=== PATIENT | male | born 1940 | race Caucasian/White ===

== ENCOUNTER 2017-05-29 11:48 | Inpatient (IN) | payer MEDICARE, OTHER ==
[~2017-05-29] VITALS: Ht 180.3 cm; Wt 139.6 kg
[~2017-05-29 11:48] MED LIST: atropine 0.1mg/ml 10ml syringe ONE; epiNEPHrine 0.1mg/ml 10ml syringe ONE; etomidate 2mg/ml inj. ONE; rocuronium 10mg/ml inj IV ONE; sod chloride 0.9% 10ml flush syringe IV ONE
[2017-05-29] MEDS ORDERED: pantoprazole 40 MG vial IV ONE (12:35)
[2017-05-29] MEDS ORDERED: famotidine/PF 10 mg/ml inj IV ONE (12:35)
[2017-05-29 12:38] LABS: BASOPHILS % (AUTO) 0.2 % (0-1); EOSINOPHILS % (AUTO) 0 % (0-6); HEMATOCRIT 48.7 % (42.0-52.0); HEMOGLOBIN 16.5 g/dl (14.0-17.9); LYMPHOCYTES # (AUTO) 0.4 X10'3 (1.1-4.8); LYMPHOCYTES % (AUTO) 2.8 % (21-51); MEAN CORPUSCULAR HEMOGLOBIN 29.1 PG (27.0-31.0); MEAN CORPUSCULAR HGB CONC 33.9 % (33.0-36.5); MEAN CORPUSCULAR VOLUME 85.7 FL (78-98); MEAN PLATELET VOLUME 7.5 FL (7.4-10.4); MONOCYTES # (AUTO) 0.7 X10'3 (0-0.9); MONOCYTES % (AUTO) 5.1 % (2-12); NEUTROPHILS % (AUTO) 91.9 % (42-75); PLATELET COUNT 213 X10'3 (140-440); RED BLOOD COUNT 5.68 X10'6 (4.70-6.10); WHITE BLOOD COUNT 14.1 X10'3 (4.5-11.0)
[2017-05-29 12:53] LABS: ALANINE AMINOTRANSFERASE 771 U/L (12-78); ALBUMIN 3.6 G/DL (3.4-5.0); ALBUMIN/GLOBULIN RATIO 0.9 (1.1-1.5); ALKALINE PHOSPHATASE 113 IU/L (46-116); ANION GAP 16 (8-16); ASPARTATE AMINO TRANSFERASE 779 U/L (10-37); BLOOD UREA NITROGEN 31 MG/DL (7-18); BUN/CREATININE RATIO 15.9 (5.4-32.0); CALCIUM 8.5 MG/DL (8.5-10.1); CHLORIDE 106 MMOL/L (99-107); CREATININE 1.95 MG/DL (0.60-1.10); GLUCOSE 238 MG/DL (70-104); POTASSIUM 4.3 MMOL/L (3.5-5.1); SODIUM 145 MMOL/L (135-145); TOTAL CARBON DIOXIDE 23.3 MMOL/L (24-32); TOTAL PROTEIN 7.5 G/DL (6.4-8.2); eGFR 34 ML/MIN
[2017-05-29 12:57] LABS: AMYLASE 947 U/L (25-115)
[2017-05-29] MEDS ORDERED: pantoprazole 40MG/NS 100ML BAG 100 ML IV ONE (13:00)
[2017-05-29 13:01] LABS: INR 1.1 INR
[2017-05-29 13:28] LABS: CHOL/HDL RATIO 2.5 (0.00-4.99); CHOLESTEROL 124 MG/DL (0-200); HDL CHOLESTEROL 49 MG/DL (35-60); HEMOGLOBIN A1C 5.6 % (4.5-6.2); LDL CHOLESTEROL 67 MG/DL (50-100); TRIGLYCERIDES 70 MG/DL (20-135)
[2017-05-29 13:29] LABS: LIPASE 5754 U/L (73-393)
[2017-05-29] MEDS ORDERED: piperacillin/tazo 3.375gm/50ml 50 ML IV ONE (14:00)
[2017-05-29] MEDS ORDERED: bisacodyl 10mg suppository rectal RC PRN (14:20)
[2017-05-29] MEDS ORDERED: ondansetron/PF 4mg/2ml inj IV PRN (14:20)
[2017-05-29] MEDS ORDERED: magnesium 4gm in 100ml NS 100 ML IV PRN (14:20)
[2017-05-29] MEDS ORDERED: potassium Cl 40MEQ/NS 500ml 500 ML IV PRN ×2 (14:20)
[2017-05-29] MEDS ORDERED: magnesium 2GM in 50ml NS 50 ML IV PRN (14:20)
[2017-05-29] MEDS ORDERED: fentaNYL/PF 50MCG/1 ML 2ML syringe IV ONE (14:30)
[2017-05-29] MEDS ORDERED: morphine 4 MG/ML inj SYRINge IV ONE (14:50)
[2017-05-29] MEDS ORDERED: morphine 4 MG/ML inj SYRINge IV PRN (14:55)
[2017-05-29] MEDS: normal saline 1000ml 1,000 ML IV SCH ×2 (15:17→19:32)
[2017-05-29] MEDS: piperacillin/tazo 3.375gm/50ml 50 ML IV SCH ×2 (15:18→23:39)
[2017-05-29] MEDS ORDERED: AMLO1CAP19 PO (16:11)
[2017-05-29 19:04] LABS: ALANINE AMINOTRANSFERASE 660 U/L (12-78); ALBUMIN 3.6 G/DL (3.4-5.0); ALBUMIN/GLOBULIN RATIO 0.9 (1.1-1.5); ALKALINE PHOSPHATASE 106 IU/L (46-116); ANION GAP 17 (8-16); ASPARTATE AMINO TRANSFERASE 498 U/L (10-37); BILIRUBIN,TOTAL 2.6 MG/DL (0.1-1.0); BLOOD UREA NITROGEN 36 MG/DL (7-18); BUN/CREATININE RATIO 18.4 (5.4-32.0); CALCIUM 8.7 MG/DL (8.5-10.1); CHLORIDE 106 MMOL/L (99-107); CREATININE 1.96 MG/DL (0.60-1.10); GLUCOSE 251 MG/DL (70-104); SODIUM 143 MMOL/L (135-145); TOTAL CARBON DIOXIDE 20.2 MMOL/L (24-32); TOTAL PROTEIN 7.5 G/DL (6.4-8.2); eGFR 33 ML/MIN
[2017-05-29 19:28] LABS: AMYLASE 1051 U/L (25-115)
[2017-05-29 19:38] LABS: LIPASE 8113 U/L (73-393)
[2017-05-29 20:00] VITALS: BP 114/70
[2017-05-29] MEDS: pantoprazole 40MG/NS 100ML BAG 100 ML IV SCH (20:48)
[2017-05-29 21:04] LABS: ALANINE AMINOTRANSFERASE 631 U/L (12-78); ALBUMIN 3.6 G/DL (3.4-5.0); ALBUMIN/GLOBULIN RATIO 0.9 (1.1-1.5); ALKALINE PHOSPHATASE 105 IU/L (46-116); ANION GAP 19 (8-16); ASPARTATE AMINO TRANSFERASE 441 U/L (10-37); BILIRUBIN,TOTAL 2.8 MG/DL (0.1-1.0); BLOOD UREA NITROGEN 39 MG/DL (7-18); BUN/CREATININE RATIO 17.4 (5.4-32.0); CALCIUM 8.5 MG/DL (8.5-10.1); CHLORIDE 107 MMOL/L (99-107); CREATININE 2.24 MG/DL (0.60-1.10); GLUCOSE 237 MG/DL (70-104); SODIUM 144 MMOL/L (135-145); TOTAL CARBON DIOXIDE 17.7 MMOL/L (24-32); TOTAL PROTEIN 7.5 G/DL (6.4-8.2); eGFR 29 ML/MIN
[2017-05-29 21:07] LABS: POTASSIUM 5.2 MMOL/L (3.5-5.1)
[2017-05-29 21:15] LABS: CLARITY,URINE CLOUDY (Clear); COLOR,URINE YELLOW (Yellow); GLUCOSE, URINE NEGATIVE (Neg); KETONES,URINE TRACE mg/dl (Neg); LEUKOCYTE ESTERASE ,URINE NEGATIVE (Neg); NITRITES, URINE NEGATIVE (Neg); OCCULT BLOOD,URINE LARGE (Neg); PROTEIN,URINE 100 mg/dl (Neg)
[2017-05-29 21:25] LABS: UA COLLECTION TYPE VOIDED
[2017-05-29 21:26] LABS: AMORPHOUS URATES 3+; BACTERIA,URINE FEW /HPF (Neg); RBC,URINE 0-2 /HPF (0-2); SQUAMOUS EPITHELIAL CELL,UR FEW /LPF (FEW); WBC,URINE 0-4 /HPF (0-4)
[2017-05-29] MEDS ORDERED: dextrose 50%-water 50ml dispensing syringe IV PRN ×2 (22:30)
[2017-05-29] MEDS ORDERED: MESSAGE TO PHARMACY PO ONE (22:30)
[2017-05-29] MEDS ORDERED: dextrose ORAL solution 15 GM/59 ML bottle PO PRN ×2 (22:30)
[2017-05-29] MEDS ORDERED: glucagon, human recombinant 1mg kit SUBCUT PRN (22:30)
[2017-05-29] MEDS: sodium chloride 0.45% 1,000 ML IV SCH ×3 (22:30→23:30)
[2017-05-29] MEDS ORDERED: furosemide 20 MG/2 ML vial IV ONE (22:30)
[2017-05-29] MEDS ORDERED: sodium chloride 0.45% 1,000 ML IV SCH (23:30)
[2017-05-30] VITALS (14 sets, daily range): BP systolic 74–122; BP diastolic 48–82
[2017-05-30] MEDS: morphine 4 MG/ML inj SYRINge IV PRN ×3 (00:32→17:58)
[2017-05-30 01:21] LABS: BASOPHILS # (AUTO) 0.1 X10'3 (0-0.2); BASOPHILS % (AUTO) 0.4 % (0-1); EOSINOPHILS % (AUTO) 0 % (0-6); HEMATOCRIT 48.8 % (42.0-52.0); HEMOGLOBIN 16.4 g/dl (14.0-17.9); LYMPHOCYTES # (AUTO) 0.6 X10'3 (1.1-4.8); LYMPHOCYTES % (AUTO) 3.7 % (21-51); MEAN CORPUSCULAR HGB CONC 33.7 % (33.0-36.5); MEAN PLATELET VOLUME 8.6 FL (7.4-10.4); MONOCYTES # (AUTO) 0.5 X10'3 (0-0.9); MONOCYTES % (AUTO) 3.4 % (2-12); NEUTROPHILS % (AUTO) 92.5 % (42-75); PLATELET COUNT 197 X10'3 (140-440); RED BLOOD COUNT 5.68 X10'6 (4.70-6.10); RED CELL DISTRIBUTION WIDTH 13.5 % (11.5-14.5); WHITE BLOOD COUNT 16.2 X10'3 (4.5-11.0)
[2017-05-30] MEDS: pantoprazole 40MG/NS 100ML BAG 100 ML IV SCH ×5 (01:25→22:48)
[2017-05-30 02:13] LABS: ANION GAP 17 (8-16); CHLORIDE 106 MMOL/L (99-107); GLUCOSE 215 MG/DL (70-104); POTASSIUM 4.8 MMOL/L (3.5-5.1); SODIUM 142 MMOL/L (135-145); TOTAL CARBON DIOXIDE 19.3 MMOL/L (24-32)
[2017-05-30 02:14] LABS: ALBUMIN 3.4 G/DL (3.4-5.0); ALBUMIN/GLOBULIN RATIO 0.9 (1.1-1.5); BILIRUBIN,TOTAL 2.7 MG/DL (0.1-1.0); BLOOD UREA NITROGEN 46 MG/DL (7-18); BUN/CREATININE RATIO 18.2 (5.4-32.0); CALCIUM 8.2 MG/DL (8.5-10.1); CREATININE 2.53 MG/DL (0.60-1.10); MAGNESIUM 1.8 MG/DL (1.5-2.4); TOTAL PROTEIN 7.2 G/DL (6.4-8.2); eGFR 25 ML/MIN
[2017-05-30 02:15] LABS: ALANINE AMINOTRANSFERASE 511 U/L (12-78); ALKALINE PHOSPHATASE 91 IU/L (46-116); ASPARTATE AMINO TRANSFERASE 342 U/L (10-37); CHOL/HDL RATIO 2.8 (0.00-4.99); CHOLESTEROL 113 MG/DL (0-200); HDL CHOLESTEROL 40 MG/DL (35-60); LDL CHOLESTEROL 57 MG/DL (50-100); TRIGLYCERIDES 104 MG/DL (20-135)
[2017-05-30 05:58] LABS: ALANINE AMINOTRANSFERASE 454 U/L (12-78); ALBUMIN 3.3 G/DL (3.4-5.0); ALBUMIN/GLOBULIN RATIO 0.9 (1.1-1.5); ALKALINE PHOSPHATASE 81 IU/L (46-116); ANION GAP 17 (8-16); BILIRUBIN,TOTAL 2.7 MG/DL (0.1-1.0); BLOOD UREA NITROGEN 51 MG/DL (7-18); CHLORIDE 107 MMOL/L (99-107); CREATININE 2.83 MG/DL (0.60-1.10); GLUCOSE 208 MG/DL (70-104); SODIUM 143 MMOL/L (135-145); TOTAL CARBON DIOXIDE 18.6 MMOL/L (24-32); TOTAL PROTEIN 6.9 G/DL (6.4-8.2); eGFR 22 ML/MIN
[2017-05-30] MEDS: sodium chloride 0.45% 1,000 ML IV SCH (06:52)
[2017-05-30 07:22] LABS: ASPARTATE AMINO TRANSFERASE 286 U/L (10-37)
[2017-05-30 07:25] LABS: AMYLASE 1788 U/L (25-115); LIPASE 10531 U/L (73-393); POTASSIUM 5.2 MMOL/L (3.5-5.1)
[2017-05-30] MEDS ORDERED: morphine 2 MG/ML inj. syringe IV ONE (07:50)
[2017-05-30] MEDS: K and/or MAG REPLACEMENT MC SCH (08:00)
[2017-05-30] MEDS ORDERED: enoxaparin 40mg/0.4ml syringe SQ SCH (08:00)
[2017-05-30 09:38] LABS: ALANINE AMINOTRANSFERASE 449 U/L (12-78); ALBUMIN 3.4 G/DL (3.4-5.0); ALBUMIN/GLOBULIN RATIO 0.9 (1.1-1.5); ALKALINE PHOSPHATASE 83 IU/L (46-116); ANION GAP 16 (8-16); BILIRUBIN,TOTAL 2.6 MG/DL (0.1-1.0); BLOOD UREA NITROGEN 55 MG/DL (7-18); BUN/CREATININE RATIO 14.8 (5.4-32.0); CALCIUM 8.2 MG/DL (8.5-10.1); CHLORIDE 104 MMOL/L (99-107); CREATININE 3.72 MG/DL (0.60-1.10); GLUCOSE 217 MG/DL (70-104); SODIUM 141 MMOL/L (135-145); TOTAL CARBON DIOXIDE 21.2 MMOL/L (24-32); TOTAL PROTEIN 7.4 G/DL (6.4-8.2); eGFR 16 ML/MIN
[2017-05-30 09:52] LABS: ASPARTATE AMINO TRANSFERASE 251 U/L (10-37)
[2017-05-30 10:01] LABS: POTASSIUM 6.2 MMOL/L (3.5-5.1)
[2017-05-30] MEDS ORDERED: sodium polystyrene sulfonate 15gm/60ml oral suspension PO ONE (10:10)
[2017-05-30] MEDS: piperacillin/tazo 3.375gm/50ml 50 ML IV SCH (11:06)
[2017-05-30] MEDS: normal saline 1000ml 1,000 ML IV SCH ×2 (11:06→17:38)
[2017-05-30 12:10] LABS: ALANINE AMINOTRANSFERASE 405 U/L (12-78); ALBUMIN 3.3 G/DL (3.4-5.0); ALBUMIN/GLOBULIN RATIO 0.8 (1.1-1.5); ALKALINE PHOSPHATASE 78 IU/L (46-116); ANION GAP 19 (8-16); ASPARTATE AMINO TRANSFERASE 249 U/L (10-37); BILIRUBIN,TOTAL 2.7 MG/DL (0.1-1.0); BLOOD UREA NITROGEN 60 MG/DL (7-18); BUN/CREATININE RATIO 14.7 (5.4-32.0); CALCIUM 8.1 MG/DL (8.5-10.1); CHLORIDE 104 MMOL/L (99-107); CREATININE 4.09 MG/DL (0.60-1.10); GLUCOSE 221 MG/DL (70-104); POTASSIUM 5.6 MMOL/L (3.5-5.1); SODIUM 142 MMOL/L (135-145); TOTAL PROTEIN 7.2 G/DL (6.4-8.2); eGFR 14 ML/MIN
[2017-05-30 16:25] LABS: ALANINE AMINOTRANSFERASE 347 U/L (12-78); ALBUMIN/GLOBULIN RATIO 0.8 (1.1-1.5); ALKALINE PHOSPHATASE 67 IU/L (46-116); ANION GAP 18 (8-16); BILIRUBIN,TOTAL 2.9 MG/DL (0.1-1.0); BLOOD UREA NITROGEN 64 MG/DL (7-18); BUN/CREATININE RATIO 14.2 (5.4-32.0); CALCIUM 7.8 MG/DL (8.5-10.1); CHLORIDE 105 MMOL/L (99-107); CREATININE 4.51 MG/DL (0.60-1.10); GLUCOSE 262 MG/DL (70-104); SODIUM 142 MMOL/L (135-145); TOTAL CARBON DIOXIDE 19.2 MMOL/L (24-32); TOTAL PROTEIN 6.6 G/DL (6.4-8.2); eGFR 13 ML/MIN
[2017-05-30 16:49] LABS: AMYLASE 2206 U/L (25-115); ASPARTATE AMINO TRANSFERASE 230 U/L (10-37); LIPASE 11787 U/L (73-393); POTASSIUM 5.8 MMOL/L (3.5-5.1)
[2017-05-30 17:11] LABS: OXYGEN SATURATION (MIXED VEN) 57.4 % (60-80)
[2017-05-30 17:11] LABS: ABG BASE EXCESS -11.6 mmol/L (-2.0-3.0); ABG OXYGEN SATURATION 88.2 % (95-98); ABG PCO2 (T) 36.3 mmHg (35.0-48.0); ABG PH (T) 7.234 (7.350-7.450); ABG PO2 (T) 59.2 mmHg (83-108); ALLEN'S TEST Positive; FCOHb 1.3 % (0.5-1.5); FLOW 5 L/min; FMetHb 0.6 % (0.3-1.12); FO2Hb 86.5 % (94-100); TOTAL HEMOGLOBIN 15.4 G/dl (14.0-18.0)
[2017-05-30] MEDS: piperacillin-tazo 2.25gm/50ml 50 ML IV SCH ×2 (17:11→22:48)
[2017-05-30 18:55] LABS: CLARITY,URINE TURBID (Clear); COLOR,URINE YELLOW (Yellow); GLUCOSE, URINE NEGATIVE (Neg); KETONES,URINE 15 mg/dl (Neg); LEUKOCYTE ESTERASE ,URINE NEGATIVE (Neg); OCCULT BLOOD,URINE LARGE (Neg); PROTEIN,URINE 100 mg/dl (Neg)
[2017-05-30 19:07] LABS: UA COLLECTION TYPE NON-SPECIFIED
[2017-05-30 19:08] LABS: NITRITES, URINE NEGATIVE (Neg)
[2017-05-30] MEDS ORDERED: MIDAZolam 5mg/ml 2ml vial ONE (19:09)
[2017-05-30 19:10] LABS: AMORPHOUS URATES 4+; BACTERIA,URINE FEW /HPF (Neg); COARSE GRANULAR CAST 0-3 /LPF (NEGATIVE); RBC,URINE 0-2 /HPF (0-2); SPERM FEW /HPF (NEGATIVE); SQUAMOUS EPITHELIAL CELL,UR FEW /LPF (FEW); WBC,URINE 0-4 /HPF (0-4)
[2017-05-30] MEDS: morphine/NS 100mg/100ml bag 100 ML IV SCH (19:12)
[2017-05-30] MEDS ORDERED: midazolam 2 mg/2 ml injection IV ONE (19:15)
[2017-05-30] MEDS ORDERED: NORepinephrine 8mg/ 250ml NS 250 ML IV ONE (19:18)
[2017-05-30 19:22] LABS: TOTAL PROTEIN,URINE RANDOM 429.4 MG/DL
[2017-05-30] MEDS: sodium bicarbonate (8.4%) inj. 100 MEQ in sodium chloride 0.45% 1,000 ML IV SCH ×2 (19:35→22:47)
[2017-05-30] MEDS: heparin, porcine 5000 units/ml vial SQ SCH (20:00)
[2017-05-30 20:30] LABS: ABG BASE EXCESS -13.6 mmol/L (-2.0-3.0); ABG OXYGEN SATURATION 89.8 % (95-98); ABG PH (T) 7.073 (7.350-7.450); ABG PO2 (T) 74.9 mmHg (83-108); ALLEN'S TEST Positive; FCOHb 1.1 % (0.5-1.5); FMetHb 0.7 % (0.3-1.12); FO2Hb 88.2 % (94-100); MINUTE VOLUME 8 L/min; PATIENT TEMPERATURE 37.3; PEEP 5 cm H2O; RESPIRATORY RATE 18 b/min; RESPIRATORY RATE (OBSERVED) 18 b/min; TIDAL VOLUME 400 mL; TOTAL HEMOGLOBIN 15.2 G/dl (14.0-18.0)
[2017-05-30 20:52] LABS: UA EOSINOPHILS NO EOS /HPF
[2017-05-30] MEDS: insulin glargine (Lantus) pen - multi-dose SQ SCH (21:00)
[2017-05-30] MEDS: lactobacillus rhamnosus 10,000 MMU CELLS/CAPSULE PO SCH (22:50)
[2017-05-30 23:15] LABS: ABG BASE EXCESS -10.7 mmol/L (-2.0-3.0); ABG HCO3 16.2 mmol/L (22.0-26.0); ABG PCO2 (T) 40.1 mmHg (35.0-48.0); ABG PH (T) 7.225 (7.350-7.450); ALLEN'S TEST Positive; FMetHb 0.6 % (0.3-1.12); FO2Hb 90.5 % (94-100); MINUTE VOLUME 14 L/min; PATIENT TEMPERATURE 37.2; PEEP 5 cm H2O; RESPIRATORY RATE 24 b/min; RESPIRATORY RATE (OBSERVED) 34 b/min; TIDAL VOLUME 400 mL; TOTAL HEMOGLOBIN 15.2 G/dl (14.0-18.0)
[2017-05-30] MEDS: insulin Lispro (HumaLOG) vial - multi-dose SQ SCH (23:41)
[2017-05-31] VITALS (24 sets, daily range): BP systolic 72–110; BP diastolic 48–67
[2017-05-31] MEDS: normal saline 1000ml 1,000 ML IV SCH ×4 (00:18→20:18)
[2017-05-31] MEDS: pantoprazole 40MG/NS 100ML BAG 100 ML IV SCH ×4 (01:00→21:06)
[2017-05-31] MEDS ORDERED: vasopressin inj. 60 UNIT in normal saline 100ml IV soln 97 ML IV SCH (01:35)
[2017-05-31] MEDS ORDERED: vasoPRESSIN 20 units/ml inj. ONE (01:53)
[2017-05-31 02:19] LABS: BASOPHILS % (AUTO) 0.2 % (0-1); EOSINOPHILS % (AUTO) 0 % (0-6); HEMOGLOBIN 14.3 g/dl (14.0-17.9); LYMPHOCYTES # (AUTO) 0.8 X10'3 (1.1-4.8); LYMPHOCYTES % (AUTO) 5.5 % (21-51); MEAN CORPUSCULAR HEMOGLOBIN 29.6 PG (27.0-31.0); MEAN CORPUSCULAR VOLUME 87.1 FL (78-98); MEAN PLATELET VOLUME 8.7 FL (7.4-10.4); MONOCYTES # (AUTO) 0.5 X10'3 (0-0.9); MONOCYTES % (AUTO) 3.7 % (2-12); NEUTROPHILS % (AUTO) 90.6 % (42-75); PLATELET COUNT 189 X10'3 (140-440); RED BLOOD COUNT 4.82 X10'6 (4.70-6.10); RED CELL DISTRIBUTION WIDTH 14.8 % (11.5-14.5); WHITE BLOOD COUNT 14.4 X10'3 (4.5-11.0)
[2017-05-31 02:36] LABS: ALANINE AMINOTRANSFERASE 254 U/L (12-78); ALBUMIN 2.6 G/DL (3.4-5.0); ALBUMIN/GLOBULIN RATIO 0.8 (1.1-1.5); ALKALINE PHOSPHATASE 57 IU/L (46-116); BILIRUBIN,TOTAL 2.8 MG/DL (0.1-1.0); BLOOD UREA NITROGEN 77 MG/DL (7-18); BUN/CREATININE RATIO 13.6 (5.4-32.0); CALCIUM 7.1 MG/DL (8.5-10.1); CHLORIDE 107 MMOL/L (99-107); CREATININE 5.65 MG/DL (0.60-1.10); GLUCOSE 216 MG/DL (70-104); MAGNESIUM 1.7 MG/DL (1.5-2.4); TOTAL CARBON DIOXIDE 20.1 MMOL/L (24-32); eGFR 10 ML/MIN
[2017-05-31 02:49] LABS: ANION GAP 10 (8-16); POTASSIUM 4.6 MMOL/L (3.5-5.1); SODIUM 137 MMOL/L (135-145)
[2017-05-31] MEDS ORDERED: NORepinephrine 8mg/ 250ml NS 250 ML IV ONE ×3 (02:56→12:09)
[2017-05-31] MEDS: piperacillin-tazo 2.25gm/50ml 50 ML IV SCH ×4 (02:56→21:07)
[2017-05-31 03:43] LABS: ASPARTATE AMINO TRANSFERASE 176 U/L (10-37)
[2017-05-31 03:54] LABS: LIPASE 8405 U/L (73-393)
[2017-05-31 03:56] LABS: AMYLASE 1806 U/L (25-115)
[2017-05-31 04:20] LABS: TOTAL CELLS COUNTED 100
[2017-05-31 04:21] LABS: ANISOCYTOSIS 1+; PLATELET ESTIMATE NORMAL; POLYCHROMASIA FEW
[2017-05-31 04:36] LABS: ABG BASE EXCESS -9.6 mmol/L (-2.0-3.0); ABG OXYGEN SATURATION 91.7 % (95-98); ABG PCO2 (T) 39.9 mmHg (35.0-48.0); ABG PH (T) 7.247 (7.350-7.450); ABG PO2 (T) 67.1 mmHg (83-108); FCOHb 0.8 % (0.5-1.5); FMetHb 0.6 % (0.3-1.12); FO2Hb 90.4 % (94-100); MINUTE VOLUME 12 L/min; PATIENT TEMPERATURE 37.2; PEEP 10 cm H2O; RESPIRATORY RATE 24 b/min; RESPIRATORY RATE (OBSERVED) 27 b/min; TIDAL VOLUME 400 mL; TOTAL HEMOGLOBIN 14.8 G/dl (14.0-18.0)
[2017-05-31] MEDS: heparin, porcine 5000 units/ml vial SQ SCH ×2 (07:57→21:07)
[2017-05-31] MEDS: K and/or MAG REPLACEMENT MC SCH (08:00)
[2017-05-31] MEDS: lactobacillus rhamnosus 10,000 MMU CELLS/CAPSULE PO SCH ×2 (08:00→21:07)
[2017-05-31] MEDS: midazolam 100mg in NS 100ml 100 ML IV PRN (13:43)
[2017-05-31 15:29] LABS: ALANINE AMINOTRANSFERASE 192 U/L (12-78); ALBUMIN/GLOBULIN RATIO 0.6 (1.1-1.5); ALKALINE PHOSPHATASE 45 IU/L (46-116); ANION GAP 15 (8-16); BILIRUBIN,TOTAL 2.6 MG/DL (0.1-1.0); BLOOD UREA NITROGEN 84 MG/DL (7-18); BUN/CREATININE RATIO 12.3 (5.4-32.0); CALCIUM 6.8 MG/DL (8.5-10.1); CHLORIDE 109 MMOL/L (99-107); CREATININE 6.83 MG/DL (0.60-1.10); GLUCOSE 215 MG/DL (70-104); SODIUM 146 MMOL/L (135-145); TOTAL CARBON DIOXIDE 21.9 MMOL/L (24-32); TOTAL PROTEIN 5.2 G/DL (6.4-8.2); eGFR 8 ML/MIN
[2017-05-31] MEDS: insulin regular, human vial - multi-dose SQ SCH (15:54)
[2017-05-31 16:01] LABS: POTASSIUM 5.5 MMOL/L (3.5-5.1)
[2017-05-31 16:02] LABS: ASPARTATE AMINO TRANSFERASE 118 U/L (10-37)
[2017-05-31] MEDS: insulin glargine (Lantus) pen - multi-dose SQ SCH (21:00)
[2017-05-31] MEDS: NORepinephrine 8mg/ 250ml NS 250 ML IV SCH (21:08)
[2017-05-31] MEDS: sodium bicarbonate (8.4%) inj. 100 MEQ in sodium chloride 0.45% 1,000 ML IV SCH (21:09)
[2017-05-31] MEDS: insulin Lispro (HumaLOG) vial - multi-dose SQ SCH (21:15)
[2017-06-01] VITALS (24 sets, daily range): BP systolic 91–118; BP diastolic 49–66
[2017-06-01] MEDS: pantoprazole 40MG/NS 100ML BAG 100 ML IV SCH ×2 (01:32→06:04)
[2017-06-01] MEDS: piperacillin-tazo 2.25gm/50ml 50 ML IV SCH ×4 (01:32→19:57)
[2017-06-01] MEDS: NORepinephrine 8mg/ 250ml NS 250 ML IV SCH ×2 (01:33→06:04)
[2017-06-01] MEDS: insulin Lispro (HumaLOG) vial - multi-dose SQ SCH (02:25)
[2017-06-01] MEDS: normal saline 1000ml 1,000 ML IV SCH ×4 (02:58→20:24)
[2017-06-01 03:31] LABS: ABG BASE EXCESS -8.6 mmol/L (-2.0-3.0); ABG HCO3 18.9 mmol/L (22.0-26.0); ABG OXYGEN SATURATION 91.6 % (95-98); ABG PCO2 (T) 40.6 mmHg (35.0-48.0); ABG PH (T) 7.267 (7.350-7.450); ABG PO2 (T) 53.2 mmHg (83-108); ALLEN'S TEST Positive; FCOHb 0.7 % (0.5-1.5); FMetHb 0.5 % (0.3-1.12); FO2Hb 90.5 % (94-100); MINUTE VOLUME 10 L/min; PATIENT TEMPERATURE 33.8; PEEP 10 cm H2O; RESPIRATORY RATE 24 b/min; RESPIRATORY RATE (OBSERVED) 24 b/min; TIDAL VOLUME 400 mL; TOTAL HEMOGLOBIN 12.8 G/dl (14.0-18.0)
[2017-06-01] MEDS: morphine/NS 100mg/100ml bag 100 ML IV SCH (03:48)
[2017-06-01 04:20] LABS: BASOPHILS % (AUTO) 0.1 % (0-1); EOSINOPHILS % (AUTO) 0.2 % (0-6); HEMATOCRIT 34.8 % (42.0-52.0); HEMOGLOBIN 11.9 g/dl (14.0-17.9); LYMPHOCYTES # (AUTO) 0.7 X10'3 (1.1-4.8); LYMPHOCYTES % (AUTO) 4.8 % (21-51); MEAN CORPUSCULAR HEMOGLOBIN 29.7 PG (27.0-31.0); MEAN CORPUSCULAR HGB CONC 34.1 % (33.0-36.5); MEAN CORPUSCULAR VOLUME 87.1 FL (78-98); MEAN PLATELET VOLUME 8.9 FL (7.4-10.4); MONOCYTES # (AUTO) 0.6 X10'3 (0-0.9); MONOCYTES % (AUTO) 4.5 % (2-12); NEUTROPHILS # (AUTO) 12.8 X10'3 (1.8-7.7); NEUTROPHILS % (AUTO) 90.4 % (42-75); PLATELET COUNT 160 X10'3 (140-440); RED CELL DISTRIBUTION WIDTH 15.4 % (11.5-14.5); WHITE BLOOD COUNT 14.1 X10'3 (4.5-11.0)
[2017-06-01] MEDS: sodium bicarbonate (8.4%) inj. 100 MEQ in sodium chloride 0.45% 1,000 ML IV SCH ×2 (04:35→15:35)
[2017-06-01 04:40] LABS: AMYLASE 861 U/L (25-115); LIPASE 2232 U/L (73-393); MAGNESIUM 1.7 MG/DL (1.5-2.4)
[2017-06-01 05:00] LABS: TOTAL CELLS COUNTED 100
[2017-06-01 05:01] LABS: ANISOCYTOSIS 1+; PLATELET ESTIMATE NORMAL; POLYCHROMASIA FEW; TOXIC GRANULATION 1+
[2017-06-01 05:02] LABS: ALANINE AMINOTRANSFERASE 194 U/L (12-78); ALBUMIN 1.8 G/DL (3.4-5.0); ALBUMIN/GLOBULIN RATIO 0.5 (1.1-1.5); ALKALINE PHOSPHATASE 43 IU/L (46-116); BILIRUBIN,TOTAL 2.3 MG/DL (0.1-1.0); BLOOD UREA NITROGEN 86 MG/DL (7-18); BUN/CREATININE RATIO 11.9 (5.4-32.0); CALCIUM 6.8 MG/DL (8.5-10.1); CHLORIDE 109 MMOL/L (99-107); CREATININE 7.25 MG/DL (0.60-1.10); GLUCOSE 230 MG/DL (70-104); TOTAL CARBON DIOXIDE 20.6 MMOL/L (24-32); TOTAL PROTEIN 5.2 G/DL (6.4-8.2); eGFR 7 ML/MIN
[2017-06-01 05:23] LABS: ANION GAP 22 (8-16); POTASSIUM 5.4 MMOL/L (3.5-5.1); SODIUM 152 MMOL/L (135-145)
[2017-06-01 05:28] LABS: ASPARTATE AMINO TRANSFERASE 123 U/L (10-37)
[2017-06-01] MEDS: lactobacillus rhamnosus 10,000 MMU CELLS/CAPSULE PO SCH ×2 (06:55→19:57)
[2017-06-01] MEDS: heparin, porcine 5000 units/ml vial SQ SCH ×2 (06:56→20:00)
[2017-06-01] MEDS: insulin regular, human vial - multi-dose SQ SCH (06:57)
[2017-06-01] MEDS: K and/or MAG REPLACEMENT MC SCH (08:00)
[2017-06-01] MEDS ORDERED: heparin 1,000 units/ml 10ml inj HE ONE ×2 (09:25)
[2017-06-01] MEDS: midazolam 100mg in NS 100ml 100 ML IV PRN (11:30)
[2017-06-01] MEDS ORDERED: calcium chloride inj. 10,000 MG in normal saline 500ml IV soln 400 ML IV PRN ×3 (13:30→16:01)
[2017-06-01] MEDS ORDERED: Duosol 4k/NO Calcium 5,000 ML HE SCH (13:33)
[2017-06-01] MEDS ORDERED: magnesium 4gm in 100ml NS 100 ML IV PRN (13:35)
[2017-06-01] MEDS ORDERED: sodium phosphate inj. 30 MMOL in normal saline 250ml IV soln 250 ML IV PRN (13:35)
[2017-06-01] MEDS ORDERED: calcium chloride inj. 1,000 MG in normal saline 100ml IV soln 100 ML IV PRN (13:35)
[2017-06-01] MEDS ORDERED: citrate dextrose 1000ml IV sol 1,000 ML IV PRN (13:35)
[2017-06-01] MEDS: citrate dextrose 1000ml IV sol 1,000 ML IV PRN ×3 (15:54→22:28)
[2017-06-01] MEDS: calcium chloride inj. 10,000 MG in normal saline 500ml IV soln 400 ML IV PRN (16:09)
[2017-06-01] MEDS: Duosol 4k/NO Calcium 5,000 ML HE SCH ×4 (16:10→21:26)
[2017-06-01 18:11] LABS: BASOPHILS % (AUTO) 0.1 % (0-1); EOSINOPHILS # (AUTO) 0.1 X10'3 (0-0.9); EOSINOPHILS % (AUTO) 1.6 % (0-6); HEMATOCRIT 22.9 % (42.0-52.0); HEMOGLOBIN 7.7 g/dl (14.0-17.9); LYMPHOCYTES # (AUTO) 0.3 X10'3 (1.1-4.8); LYMPHOCYTES % (AUTO) 4.1 % (21-51); MEAN CORPUSCULAR HEMOGLOBIN 29.2 PG (27.0-31.0); MEAN CORPUSCULAR HGB CONC 33.5 % (33.0-36.5); MEAN CORPUSCULAR VOLUME 87.3 FL (78-98); MEAN PLATELET VOLUME 7.6 FL (7.4-10.4); MONOCYTES # (AUTO) 0.1 X10'3 (0-0.9); MONOCYTES % (AUTO) 0.9 % (2-12); NEUTROPHILS # (AUTO) 7.7 X10'3 (1.8-7.7); NEUTROPHILS % (AUTO) 93.3 % (42-75); PLATELET COUNT 106 X10'3 (140-440); RED BLOOD COUNT 2.63 X10'6 (4.70-6.10); RED CELL DISTRIBUTION WIDTH 15.2 % (11.5-14.5); WHITE BLOOD COUNT 8.2 X10'3 (4.5-11.0)
[2017-06-01 18:21] LABS: ALBUMIN 0.7 G/DL (3.4-5.0); ANION GAP 15 (8-16); BLOOD UREA NITROGEN 45 MG/DL (7-18); CHLORIDE 121 MMOL/L (99-107); CREATININE 3.45 MG/DL (0.60-1.10); GLUCOSE 130 MG/DL (70-104); PHOSPHORUS 2.6 MG/DL (2.3-4.5); SODIUM 154 MMOL/L (135-145); TOTAL CARBON DIOXIDE 18.4 MMOL/L (24-32); eGFR 17 ML/MIN
[2017-06-01 18:39] LABS: POTASSIUM 2.2 MMOL/L (3.5-5.1)
[2017-06-01 18:40] LABS: MAGNESIUM 0.7 MG/DL (1.5-2.4)
[2017-06-01] MEDS: potassium Cl 20mEq/100mL bag 100 ML IV PRN ×2 (19:31→20:26)
[2017-06-01] MEDS: famotidine/PF 10 mg/ml inj IV SCH (19:57)
[2017-06-01] MEDS: insulin glargine (Lantus) pen - multi-dose SQ SCH (20:23)
[2017-06-01 20:33] LABS: BASOPHILS % (AUTO) 0.2 % (0-1); EOSINOPHILS # (AUTO) 0.2 X10'3 (0-0.9); EOSINOPHILS % (AUTO) 1.2 % (0-6); HEMATOCRIT 33.7 % (42.0-52.0); HEMOGLOBIN 11.4 g/dl (14.0-17.9); LYMPHOCYTES # (AUTO) 0.5 X10'3 (1.1-4.8); LYMPHOCYTES % (AUTO) 3.9 % (21-51); MEAN CORPUSCULAR HEMOGLOBIN 29.2 PG (27.0-31.0); MEAN CORPUSCULAR HGB CONC 33.7 % (33.0-36.5); MEAN CORPUSCULAR VOLUME 86.7 FL (78-98); MEAN PLATELET VOLUME 8.5 FL (7.4-10.4); MONOCYTES # (AUTO) 0.9 X10'3 (0-0.9); MONOCYTES % (AUTO) 7.1 % (2-12); NEUTROPHILS # (AUTO) 10.7 X10'3 (1.8-7.7); NEUTROPHILS % (AUTO) 87.6 % (42-75); PLATELET COUNT 140 X10'3 (140-440); RED BLOOD COUNT 3.89 X10'6 (4.70-6.10); RED CELL DISTRIBUTION WIDTH 15.4 % (11.5-14.5); WHITE BLOOD COUNT 12.2 X10'3 (4.5-11.0)
[2017-06-01 20:44] LABS: ALBUMIN 1.6 G/DL (3.4-5.0); ANION GAP 14 (8-16); BLOOD UREA NITROGEN 74 MG/DL (7-18); BUN/CREATININE RATIO 10.6 (5.4-32.0); CHLORIDE 109 MMOL/L (99-107); CREATININE 6.96 MG/DL (0.60-1.10); GLUCOSE 190 MG/DL (70-104); MAGNESIUM 2.9 MG/DL (1.5-2.4); SODIUM 145 MMOL/L (135-145); TOTAL CARBON DIOXIDE 21.7 MMOL/L (24-32); eGFR 8 ML/MIN
[2017-06-01 20:47] LABS: PHOSPHORUS 5.1 MG/DL (2.3-4.5)
[2017-06-01 23:14] LABS: BASOPHILS % (AUTO) 0 % (0-1); EOSINOPHILS # (AUTO) 0.1 X10'3 (0-0.9); EOSINOPHILS % (AUTO) 1.2 % (0-6); HEMATOCRIT 34.3 % (42.0-52.0); HEMOGLOBIN 11.6 g/dl (14.0-17.9); LYMPHOCYTES # (AUTO) 0.3 X10'3 (1.1-4.8); LYMPHOCYTES % (AUTO) 2.9 % (21-51); MEAN CORPUSCULAR HEMOGLOBIN 29.1 PG (27.0-31.0); MEAN CORPUSCULAR HGB CONC 33.7 % (33.0-36.5); MEAN CORPUSCULAR VOLUME 86.3 FL (78-98); MEAN PLATELET VOLUME 8.1 FL (7.4-10.4); MONOCYTES # (AUTO) 0.3 X10'3 (0-0.9); MONOCYTES % (AUTO) 2.1 % (2-12); NEUTROPHILS # (AUTO) 11.3 X10'3 (1.8-7.7); NEUTROPHILS % (AUTO) 93.8 % (42-75); PLATELET COUNT 135 X10'3 (140-440); RED BLOOD COUNT 3.98 X10'6 (4.70-6.10); RED CELL DISTRIBUTION WIDTH 15.1 % (11.5-14.5); WHITE BLOOD COUNT 12.1 X10'3 (4.5-11.0)
[2017-06-01 23:27] LABS: ALBUMIN 1.6 G/DL (3.4-5.0); ANION GAP 13 (8-16); BLOOD UREA NITROGEN 68 MG/DL (7-18); BUN/CREATININE RATIO 11.3 (5.4-32.0); CHLORIDE 110 MMOL/L (99-107); CREATININE 6.02 MG/DL (0.60-1.10); GLUCOSE 199 MG/DL (70-104); MAGNESIUM 2.3 MG/DL (1.5-2.4); PHOSPHORUS 4.6 MG/DL (2.3-4.5); SODIUM 145 MMOL/L (135-145); TOTAL CARBON DIOXIDE 22.2 MMOL/L (24-32); eGFR 9 ML/MIN
[2017-06-01 23:29] LABS: POTASSIUM 5.1 MMOL/L (3.5-5.1)
[2017-06-02] VITALS (24 sets, daily range): BP systolic 97–121; BP diastolic 54–66
[2017-06-02] MEDS: Duosol 4k/NO Calcium 5,000 ML HE SCH ×14 (00:02→21:35)
[2017-06-02] MEDS: citrate dextrose 1000ml IV sol 1,000 ML IV PRN ×6 (01:38→22:16)
[2017-06-02] MEDS: piperacillin-tazo 2.25gm/50ml 50 ML IV SCH ×4 (02:09→20:28)
[2017-06-02] MEDS: normal saline 1000ml 1,000 ML IV SCH (02:21)
[2017-06-02] MEDS: sodium bicarbonate (8.4%) inj. 100 MEQ in sodium chloride 0.45% 1,000 ML IV SCH (02:21)
[2017-06-02] MEDS: insulin regular, human vial - multi-dose SQ SCH ×4 (02:21→20:51)
[2017-06-02 03:06] LABS: ABG BASE EXCESS -6.8 mmol/L (-2.0-3.0); ABG HCO3 20.1 mmol/L (22.0-26.0); ABG OXYGEN SATURATION 92.1 % (95-98); ABG PCO2 (T) 45.5 mmHg (35.0-48.0); ABG PH (T) 7.262 (7.350-7.450); ALLEN'S TEST Positive; FCOHb 0.7 % (0.5-1.5); FMetHb 0.2 % (0.3-1.12); FO2Hb 91.3 % (94-100); MINUTE VOLUME 10 L/min; PEEP 10 cm H2O; RESPIRATORY RATE 24 b/min; RESPIRATORY RATE (OBSERVED) 24 b/min; TIDAL VOLUME 400 mL; TOTAL HEMOGLOBIN 12.6 G/dl (14.0-18.0)
[2017-06-02 03:30] LABS: ALANINE AMINOTRANSFERASE 144 U/L (12-78); ALBUMIN 1.6 G/DL (3.4-5.0); ALBUMIN/GLOBULIN RATIO 0.4 (1.1-1.5); ALKALINE PHOSPHATASE 43 IU/L (46-116); ANION GAP 13 (8-16); ASPARTATE AMINO TRANSFERASE 58 U/L (10-37); BILIRUBIN,TOTAL 1.8 MG/DL (0.1-1.0); BLOOD UREA NITROGEN 58 MG/DL (7-18); BUN/CREATININE RATIO 10.9 (5.4-32.0); CALCIUM 8.4 MG/DL (8.5-10.1); CHLORIDE 109 MMOL/L (99-107); GLUCOSE 210 MG/DL (70-104); MAGNESIUM 2.2 MG/DL (1.5-2.4); PHOSPHORUS 4.4 MG/DL (2.3-4.5); SODIUM 144 MMOL/L (135-145); TOTAL CARBON DIOXIDE 21.7 MMOL/L (24-32); TOTAL PROTEIN 5.4 G/DL (6.4-8.2); eGFR 11 ML/MIN
[2017-06-02 03:32] LABS: POTASSIUM 4.9 MMOL/L (3.5-5.1)
[2017-06-02 03:37] LABS: BASOPHILS % (AUTO) 0 % (0-1); EOSINOPHILS # (AUTO) 0.1 X10'3 (0-0.9); EOSINOPHILS % (AUTO) 0.6 % (0-6); HEMATOCRIT 33.5 % (42.0-52.0); HEMOGLOBIN 11.6 g/dl (14.0-17.9); LYMPHOCYTES # (AUTO) 0.3 X10'3 (1.1-4.8); LYMPHOCYTES % (AUTO) 2.6 % (21-51); MEAN CORPUSCULAR HEMOGLOBIN 29.7 PG (27.0-31.0); MEAN CORPUSCULAR HGB CONC 34.5 % (33.0-36.5); MEAN CORPUSCULAR VOLUME 86.1 FL (78-98); MEAN PLATELET VOLUME 8.4 FL (7.4-10.4); MONOCYTES # (AUTO) 0.7 X10'3 (0-0.9); MONOCYTES % (AUTO) 5.3 % (2-12); NEUTROPHILS # (AUTO) 11.7 X10'3 (1.8-7.7); NEUTROPHILS % (AUTO) 91.5 % (42-75); PLATELET COUNT 139 X10'3 (140-440); RED BLOOD COUNT 3.89 X10'6 (4.70-6.10); RED CELL DISTRIBUTION WIDTH 15.2 % (11.5-14.5); WHITE BLOOD COUNT 12.8 X10'3 (4.5-11.0)
[2017-06-02 05:26] LABS: NUCLEATED RED BLOOD CELLS 1 /100WBC (0-0); TOTAL CELLS COUNTED 100
[2017-06-02 05:27] LABS: PLATELET ESTIMATE DECREASED
[2017-06-02 05:28] LABS: ANISOCYTOSIS 1+; BURR CELLS 1+; POLYCHROMASIA FEW; TOXIC GRANULATION 2+
[2017-06-02 07:23] LABS: BASOPHILS % (AUTO) 0.1 % (0-1); EOSINOPHILS # (AUTO) 0.1 X10'3 (0-0.9); EOSINOPHILS % (AUTO) 1.2 % (0-6); HEMATOCRIT 33.8 % (42.0-52.0); HEMOGLOBIN 11.3 g/dl (14.0-17.9); LYMPHOCYTES # (AUTO) 0.3 X10'3 (1.1-4.8); LYMPHOCYTES % (AUTO) 2.9 % (21-51); MEAN CORPUSCULAR HEMOGLOBIN 29.2 PG (27.0-31.0); MEAN CORPUSCULAR HGB CONC 33.6 % (33.0-36.5); MEAN CORPUSCULAR VOLUME 87.1 FL (78-98); MEAN PLATELET VOLUME 8.5 FL (7.4-10.4); MONOCYTES # (AUTO) 0.3 X10'3 (0-0.9); NEUTROPHILS # (AUTO) 10.5 X10'3 (1.8-7.7); NEUTROPHILS % (AUTO) 92.8 % (42-75); PLATELET COUNT 131 X10'3 (140-440); RED BLOOD COUNT 3.88 X10'6 (4.70-6.10); RED CELL DISTRIBUTION WIDTH 15.7 % (11.5-14.5); WHITE BLOOD COUNT 11.4 X10'3 (4.5-11.0)
[2017-06-02 07:35] LABS: ALBUMIN 1.5 G/DL (3.4-5.0); ANION GAP 13 (8-16); BLOOD UREA NITROGEN 53 MG/DL (7-18); BUN/CREATININE RATIO 11.3 (5.4-32.0); CHLORIDE 108 MMOL/L (99-107); CREATININE 4.68 MG/DL (0.60-1.10); GLUCOSE 207 MG/DL (70-104); MAGNESIUM 2.1 MG/DL (1.5-2.4); PHOSPHORUS 4.1 MG/DL (2.3-4.5); POTASSIUM 4.8 MMOL/L (3.5-5.1); SODIUM 143 MMOL/L (135-145); TOTAL CARBON DIOXIDE 22.4 MMOL/L (24-32); eGFR 12 ML/MIN
[2017-06-02] MEDS: lactobacillus rhamnosus 10,000 MMU CELLS/CAPSULE PO SCH ×2 (07:58→20:28)
[2017-06-02] MEDS: heparin, porcine 5000 units/ml vial SQ SCH ×2 (07:59→20:28)
[2017-06-02] MEDS: famotidine/PF 10 mg/ml inj IV SCH (07:59)
[2017-06-02] MEDS: calcium chloride inj. 10,000 MG in normal saline 500ml IV soln 400 ML IV PRN ×2 (08:00→18:34)
[2017-06-02] MEDS: K and/or MAG REPLACEMENT MC SCH (08:00)
[2017-06-02 08:11] LABS: ABG HCO3 18.8 mmol/L (22.0-26.0); ABG PH (T) 7.301 (7.350-7.450); ABG PO2 (T) 72.3 mmHg (83-108); FCOHb 0.2 % (0.5-1.5); FMetHb 0.3 % (0.3-1.12); FO2Hb 92.5 % (94-100); MINUTE VOLUME 8 L/min; PATIENT TEMPERATURE 37.2; PEEP 10 cm H2O; RESPIRATORY RATE 24 b/min; RESPIRATORY RATE (OBSERVED) 21 b/min; TIDAL VOLUME 420 mL; TOTAL HEMOGLOBIN 12.2 G/dl (14.0-18.0)
[2017-06-02 10:00] LABS: AMYLASE 248 U/L (25-115); LIPASE 520 U/L (73-393)
[2017-06-02 13:15] LABS: BASOPHILS % (AUTO) 0 % (0-1); EOSINOPHILS # (AUTO) 0.1 X10'3 (0-0.9); EOSINOPHILS % (AUTO) 1.4 % (0-6); HEMATOCRIT 32.9 % (42.0-52.0); HEMOGLOBIN 11.2 g/dl (14.0-17.9); LYMPHOCYTES # (AUTO) 0.3 X10'3 (1.1-4.8); LYMPHOCYTES % (AUTO) 2.9 % (21-51); MEAN CORPUSCULAR HEMOGLOBIN 29.5 PG (27.0-31.0); MEAN CORPUSCULAR HGB CONC 33.9 % (33.0-36.5); MEAN CORPUSCULAR VOLUME 86.9 FL (78-98); MEAN PLATELET VOLUME 8.2 FL (7.4-10.4); MONOCYTES # (AUTO) 0.4 X10'3 (0-0.9); MONOCYTES % (AUTO) 4.5 % (2-12); NEUTROPHILS # (AUTO) 8.4 X10'3 (1.8-7.7); NEUTROPHILS % (AUTO) 91.2 % (42-75); PLATELET COUNT 122 X10'3 (140-440); RED BLOOD COUNT 3.79 X10'6 (4.70-6.10); RED CELL DISTRIBUTION WIDTH 15.2 % (11.5-14.5); WHITE BLOOD COUNT 9.2 X10'3 (4.5-11.0)
[2017-06-02 13:27] LABS: ALBUMIN 1.5 G/DL (3.4-5.0); ANION GAP 9 (8-16); BLOOD UREA NITROGEN 46 MG/DL (7-18); BUN/CREATININE RATIO 11.3 (5.4-32.0); CHLORIDE 109 MMOL/L (99-107); CREATININE 4.06 MG/DL (0.60-1.10); GLUCOSE 190 MG/DL (70-104); PHOSPHORUS 3.5 MG/DL (2.3-4.5); POTASSIUM 4.7 MMOL/L (3.5-5.1); SODIUM 143 MMOL/L (135-145); TOTAL CARBON DIOXIDE 25.4 MMOL/L (24-32); eGFR 14 ML/MIN
[2017-06-02 14:48] LABS: PLATELET ESTIMATE DECREASED; TOTAL CELLS COUNTED 100
[2017-06-02 14:49] LABS: BURR CELLS 1+; TOXIC GRANULATION 2+
[2017-06-02] MEDS ORDERED: MORPHINE 2MG in 2ml NS syringe IV PRN (18:51)
[2017-06-02] MEDS: pantoprazole 40 MG vial IV SCH (20:29)
[2017-06-02] MEDS: insulin glargine (Lantus) pen - multi-dose SQ SCH (20:52)
[2017-06-02 21:03] LABS: BASOPHILS % (AUTO) 0 % (0-1); EOSINOPHILS # (AUTO) 0.1 X10'3 (0-0.9); EOSINOPHILS % (AUTO) 1.2 % (0-6); HEMOGLOBIN 11.1 g/dl (14.0-17.9); LYMPHOCYTES # (AUTO) 0.2 X10'3 (1.1-4.8); LYMPHOCYTES % (AUTO) 2.3 % (21-51); MEAN CORPUSCULAR HEMOGLOBIN 28.9 PG (27.0-31.0); MEAN CORPUSCULAR HGB CONC 33.5 % (33.0-36.5); MEAN CORPUSCULAR VOLUME 86.2 FL (78-98); MEAN PLATELET VOLUME 7.5 FL (7.4-10.4); MONOCYTES # (AUTO) 0.3 X10'3 (0-0.9); MONOCYTES % (AUTO) 2.6 % (2-12); NEUTROPHILS # (AUTO) 9.4 X10'3 (1.8-7.7); NEUTROPHILS % (AUTO) 93.9 % (42-75); PLATELET COUNT 115 X10'3 (140-440); RED BLOOD COUNT 3.83 X10'6 (4.70-6.10); RED CELL DISTRIBUTION WIDTH 15.1 % (11.5-14.5)
[2017-06-02 21:16] LABS: ALBUMIN 1.4 G/DL (3.4-5.0); ANION GAP 10 (8-16); BLOOD UREA NITROGEN 42 MG/DL (7-18); CHLORIDE 107 MMOL/L (99-107); CREATININE 4.19 MG/DL (0.60-1.10); GLUCOSE 189 MG/DL (70-104); MAGNESIUM 1.9 MG/DL (1.5-2.4); POTASSIUM 4.4 MMOL/L (3.5-5.1); SODIUM 141 MMOL/L (135-145); TOTAL CARBON DIOXIDE 24.5 MMOL/L (24-32); eGFR 14 ML/MIN
[2017-06-03] VITALS (24 sets, daily range): BP systolic 103–154; BP diastolic 60–80
[2017-06-03] MEDS: Duosol 4k/NO Calcium 5,000 ML HE SCH ×14 (00:05→23:12)
[2017-06-03 01:26] LABS: ALBUMIN 1.4 G/DL (3.4-5.0); ANION GAP 8 (8-16); BLOOD UREA NITROGEN 40 MG/DL (7-18); BUN/CREATININE RATIO 10.8 (5.4-32.0); CHLORIDE 107 MMOL/L (99-107); GLUCOSE 179 MG/DL (70-104); MAGNESIUM 1.9 MG/DL (1.5-2.4); PHOSPHORUS 2.5 MG/DL (2.3-4.5); POTASSIUM 4.4 MMOL/L (3.5-5.1); SODIUM 141 MMOL/L (135-145); TOTAL CARBON DIOXIDE 26.5 MMOL/L (24-32); eGFR 16 ML/MIN
[2017-06-03] MEDS: citrate dextrose 1000ml IV sol 1,000 ML IV PRN ×7 (01:32→21:30)
[2017-06-03] MEDS: piperacillin-tazo 2.25gm/50ml 50 ML IV SCH ×4 (01:33→20:25)
[2017-06-03 02:03] LABS: BASOPHILS % (AUTO) 0 % (0-1); EOSINOPHILS # (AUTO) 0.1 X10'3 (0-0.9); EOSINOPHILS % (AUTO) 0.7 % (0-6); HEMATOCRIT 31.8 % (42.0-52.0); HEMOGLOBIN 10.8 g/dl (14.0-17.9); LYMPHOCYTES # (AUTO) 0.4 X10'3 (1.1-4.8); LYMPHOCYTES % (AUTO) 3.1 % (21-51); MEAN CORPUSCULAR HEMOGLOBIN 29.5 PG (27.0-31.0); MEAN CORPUSCULAR VOLUME 86.8 FL (78-98); MEAN PLATELET VOLUME 8.6 FL (7.4-10.4); MONOCYTES # (AUTO) 0.8 X10'3 (0-0.9); MONOCYTES % (AUTO) 6.9 % (2-12); NEUTROPHILS # (AUTO) 10.6 X10'3 (1.8-7.7); NEUTROPHILS % (AUTO) 89.3 % (42-75); PLATELET COUNT 109 X10'3 (140-440); RED BLOOD COUNT 3.67 X10'6 (4.70-6.10); RED CELL DISTRIBUTION WIDTH 15.6 % (11.5-14.5); WHITE BLOOD COUNT 11.9 X10'3 (4.5-11.0)
[2017-06-03] MEDS: insulin regular, human vial - multi-dose SQ SCH ×4 (02:14→20:39)
[2017-06-03] MEDS: morphine/NS 100mg/100ml bag 100 ML IV SCH (03:12)
[2017-06-03 03:15] LABS: ABG HCO3 22.5 mmol/L (22.0-26.0); ABG OXYGEN SATURATION 92.1 % (95-98); ABG PCO2 (T) 37.9 mmHg (35.0-48.0); ABG PH (T) 7.393 (7.350-7.450); ABG PO2 (T) 66.1 mmHg (83-108); ALLEN'S TEST Positive; FMetHb 0.2 % (0.3-1.12); FO2Hb 91.9 % (94-100); MINUTE VOLUME 10 L/min; PATIENT TEMPERATURE 37.3; PEEP 10 cm H2O; RESPIRATORY RATE 24 b/min; RESPIRATORY RATE (OBSERVED) 24 b/min; TIDAL VOLUME 400 mL; TOTAL HEMOGLOBIN 11.4 G/dl (14.0-18.0)
[2017-06-03 07:26] LABS: BANDS% (MANUAL) 8 % (0-10); LYMPHOCYTES % (MANUAL) 6 % (21-51); METAMYLEOCYTES% (MANUAL) 4 % (0-0); MONOCYTES % (MANUAL) 7 % (2-12); MYELOCYTES % (MANUAL) 1 % (0-0); NEUTROPHILS % (MANUAL) 74 % (42-75); PLATELET ESTIMATE DECREASED; TOTAL CELLS COUNTED 100
[2017-06-03 07:27] LABS: ANISOCYTOSIS 1+
[2017-06-03] MEDS: pantoprazole 40 MG vial IV SCH (07:35)
[2017-06-03 07:37] LABS: BASOPHILS % (AUTO) 0 % (0-1); EOSINOPHILS # (AUTO) 0.1 X10'3 (0-0.9); EOSINOPHILS % (AUTO) 1.2 % (0-6); HEMATOCRIT 32.4 % (42.0-52.0); HEMOGLOBIN 10.8 g/dl (14.0-17.9); LYMPHOCYTES # (AUTO) 0.4 X10'3 (1.1-4.8); LYMPHOCYTES % (AUTO) 3.2 % (21-51); MEAN CORPUSCULAR HEMOGLOBIN 28.9 PG (27.0-31.0); MEAN CORPUSCULAR HGB CONC 33.5 % (33.0-36.5); MEAN CORPUSCULAR VOLUME 86.4 FL (78-98); MEAN PLATELET VOLUME 8.2 FL (7.4-10.4); MONOCYTES # (AUTO) 0.7 X10'3 (0-0.9); MONOCYTES % (AUTO) 5.7 % (2-12); NEUTROPHILS # (AUTO) 10.5 X10'3 (1.8-7.7); NEUTROPHILS % (AUTO) 89.9 % (42-75); PLATELET COUNT 107 X10'3 (140-440); RED BLOOD COUNT 3.75 X10'6 (4.70-6.10); RED CELL DISTRIBUTION WIDTH 15.3 % (11.5-14.5); WHITE BLOOD COUNT 11.7 X10'3 (4.5-11.0)
[2017-06-03] MEDS: lactobacillus rhamnosus 10,000 MMU CELLS/CAPSULE PO SCH ×2 (07:37→20:00)
[2017-06-03] MEDS: heparin, porcine 5000 units/ml vial SQ SCH ×2 (07:40→20:23)
[2017-06-03] MEDS: K and/or MAG REPLACEMENT MC SCH (07:42)
[2017-06-03 07:50] LABS: BANDS% (MANUAL) 7 % (0-10); NEUTROPHILS % (MANUAL) 82 % (42-75); TOTAL CELLS COUNTED 100
[2017-06-03 07:51] LABS: EOSINOPHILS % (MANUAL) 1 % (0-6); LYMPHOCYTES % (MANUAL) 3 % (21-51); MONOCYTES % (MANUAL) 7 % (2-12); NUCLEATED RED BLOOD CELLS 4 /100WBC (0-0); PLATELET ESTIMATE DECREASED
[2017-06-03 07:59] LABS: ALBUMIN 1.4 G/DL (3.4-5.0); AMYLASE 88 U/L (25-115); ANION GAP 11 (8-16); BLOOD UREA NITROGEN 35 MG/DL (7-18); BUN/CREATININE RATIO 10.5 (5.4-32.0); CHLORIDE 106 MMOL/L (99-107); CREATININE 3.34 MG/DL (0.60-1.10); GLUCOSE 174 MG/DL (70-104); LIPASE 166 U/L (73-393); MAGNESIUM 1.8 MG/DL (1.5-2.4); PHOSPHORUS 2.5 MG/DL (2.3-4.5); POTASSIUM 4.2 MMOL/L (3.5-5.1); SODIUM 142 MMOL/L (135-145); TOTAL CARBON DIOXIDE 25.2 MMOL/L (24-32); eGFR 18 ML/MIN
[2017-06-03] MEDS ORDERED: pantoprazole 40 MG vial IV SCH (08:00)
[2017-06-03] MEDS: calcium chloride inj. 10,000 MG in normal saline 500ml IV soln 400 ML IV PRN (10:36)
[2017-06-03 12:57] LABS: BASOPHILS % (AUTO) 0.3 % (0-1); EOSINOPHILS # (AUTO) 0.1 X10'3 (0-0.9); EOSINOPHILS % (AUTO) 0.7 % (0-6); HEMATOCRIT 32.9 % (42.0-52.0); HEMOGLOBIN 11.1 g/dl (14.0-17.9); LYMPHOCYTES # (AUTO) 0.3 X10'3 (1.1-4.8); LYMPHOCYTES % (AUTO) 2.6 % (21-51); MEAN CORPUSCULAR HEMOGLOBIN 29.1 PG (27.0-31.0); MEAN CORPUSCULAR HGB CONC 33.7 % (33.0-36.5); MEAN CORPUSCULAR VOLUME 86.3 FL (78-98); MONOCYTES # (AUTO) 1.4 X10'3 (0-0.9); MONOCYTES % (AUTO) 10.7 % (2-12); NEUTROPHILS # (AUTO) 10.9 X10'3 (1.8-7.7); NEUTROPHILS % (AUTO) 85.7 % (42-75); PLATELET COUNT 108 X10'3 (140-440); RED BLOOD COUNT 3.81 X10'6 (4.70-6.10); RED CELL DISTRIBUTION WIDTH 15.1 % (11.5-14.5); WHITE BLOOD COUNT 12.7 X10'3 (4.5-11.0)
[2017-06-03 13:07] LABS: ALBUMIN 1.4 G/DL (3.4-5.0); ANION GAP 10 (8-16); BLOOD UREA NITROGEN 33 MG/DL (7-18); BUN/CREATININE RATIO 9.9 (5.4-32.0); CHLORIDE 105 MMOL/L (99-107); CREATININE 3.34 MG/DL (0.60-1.10); GLUCOSE 183 MG/DL (70-104); MAGNESIUM 1.8 MG/DL (1.5-2.4); PHOSPHORUS 2.6 MG/DL (2.3-4.5); POTASSIUM 4.2 MMOL/L (3.5-5.1); SODIUM 140 MMOL/L (135-145); TOTAL CARBON DIOXIDE 25.5 MMOL/L (24-32); eGFR 18 ML/MIN
[2017-06-03 19:05] LABS: BASOPHILS % (AUTO) 0 % (0-1); EOSINOPHILS # (AUTO) 0.1 X10'3 (0-0.9); EOSINOPHILS % (AUTO) 0.6 % (0-6); HEMATOCRIT 34.7 % (42.0-52.0); HEMOGLOBIN 11.6 g/dl (14.0-17.9); LYMPHOCYTES # (AUTO) 0.4 X10'3 (1.1-4.8); LYMPHOCYTES % (AUTO) 2.6 % (21-51); MEAN CORPUSCULAR HGB CONC 33.5 % (33.0-36.5); MEAN CORPUSCULAR VOLUME 86.4 FL (78-98); MEAN PLATELET VOLUME 8.1 FL (7.4-10.4); MONOCYTES # (AUTO) 1.3 X10'3 (0-0.9); MONOCYTES % (AUTO) 9.1 % (2-12); NEUTROPHILS # (AUTO) 12.6 X10'3 (1.8-7.7); NEUTROPHILS % (AUTO) 87.7 % (42-75); PLATELET COUNT 116 X10'3 (140-440); RED BLOOD COUNT 4.01 X10'6 (4.70-6.10); WHITE BLOOD COUNT 14.3 X10'3 (4.5-11.0)
[2017-06-03 19:18] LABS: ALBUMIN 1.5 G/DL (3.4-5.0); ANION GAP 9 (8-16); BLOOD UREA NITROGEN 31 MG/DL (7-18); BUN/CREATININE RATIO 9.7 (5.4-32.0); CHLORIDE 105 MMOL/L (99-107); CREATININE 3.19 MG/DL (0.60-1.10); GLUCOSE 183 MG/DL (70-104); MAGNESIUM 1.8 MG/DL (1.5-2.4); PHOSPHORUS 2.6 MG/DL (2.3-4.5); POTASSIUM 4.2 MMOL/L (3.5-5.1); SODIUM 139 MMOL/L (135-145); TOTAL CARBON DIOXIDE 25.1 MMOL/L (24-32); eGFR 19 ML/MIN
[2017-06-03] MEDS: famotidine/PF 10 mg/ml inj IV SCH (20:24)
[2017-06-03] MEDS: insulin glargine (Lantus) pen - multi-dose SQ SCH (20:38)
[2017-06-03 21:06] LABS: TOTAL CELLS COUNTED 100
[2017-06-03 21:08] LABS: ANISOCYTOSIS 1+; PLATELET ESTIMATE DECREASED; POLYCHROMASIA FEW
[2017-06-03 21:09] LABS: TOXIC GRANULATION 1+
[2017-06-04] VITALS (24 sets, daily range): BP systolic 110–147; BP diastolic 64–86
[2017-06-04] MEDS: Duosol 4k/NO Calcium 5,000 ML HE SCH ×14 (00:54→23:25)
[2017-06-04] MEDS ORDERED: metoclopramide 5 mg/ml inj IV PRN (01:35)
[2017-06-04] MEDS: citrate dextrose 1000ml IV sol 1,000 ML IV PRN ×6 (02:07→18:30)
[2017-06-04] MEDS: piperacillin-tazo 2.25gm/50ml 50 ML IV SCH ×4 (02:14→20:00)
[2017-06-04] MEDS: insulin regular, human vial - multi-dose SQ SCH ×4 (02:22→22:35)
[2017-06-04 03:02] LABS: BASOPHILS % (AUTO) 0.1 % (0-1); EOSINOPHILS # (AUTO) 0.2 X10'3 (0-0.9); EOSINOPHILS % (AUTO) 1.4 % (0-6); HEMOGLOBIN 11.8 g/dl (14.0-17.9); LYMPHOCYTES # (AUTO) 0.5 X10'3 (1.1-4.8); LYMPHOCYTES % (AUTO) 3.2 % (21-51); MEAN CORPUSCULAR HEMOGLOBIN 29.2 PG (27.0-31.0); MEAN CORPUSCULAR HGB CONC 33.8 % (33.0-36.5); MEAN CORPUSCULAR VOLUME 86.4 FL (78-98); MEAN PLATELET VOLUME 8.6 FL (7.4-10.4); MONOCYTES # (AUTO) 1.1 X10'3 (0-0.9); MONOCYTES % (AUTO) 6.6 % (2-12); NEUTROPHILS # (AUTO) 14.8 X10'3 (1.8-7.7); NEUTROPHILS % (AUTO) 88.7 % (42-75); PLATELET COUNT 120 X10'3 (140-440); RED BLOOD COUNT 4.05 X10'6 (4.70-6.10); RED CELL DISTRIBUTION WIDTH 15.6 % (11.5-14.5); WHITE BLOOD COUNT 16.6 X10'3 (4.5-11.0)
[2017-06-04 03:16] LABS: ALBUMIN 1.4 G/DL (3.4-5.0); ANION GAP 11 (8-16); BLOOD UREA NITROGEN 32 MG/DL (7-18); CHLORIDE 105 MMOL/L (99-107); CREATININE 3.19 MG/DL (0.60-1.10); GLUCOSE 205 MG/DL (70-104); MAGNESIUM 1.9 MG/DL (1.5-2.4); POTASSIUM 4.4 MMOL/L (3.5-5.1); PREALBUMIN 8.1 MG/DL (19-36); SODIUM 142 MMOL/L (135-145); TOTAL CARBON DIOXIDE 25.6 MMOL/L (24-32); eGFR 19 ML/MIN
[2017-06-04] MEDS: calcium chloride inj. 10,000 MG in normal saline 500ml IV soln 400 ML IV PRN ×3 (03:49→22:17)
[2017-06-04 03:56] LABS: ABG HCO3 21.2 mmol/L (22.0-26.0); ABG OXYGEN SATURATION 95.7 % (95-98); ABG PCO2 (T) 36.2 mmHg (35.0-48.0); ABG PH (T) 7.388 (7.350-7.450); ABG PO2 (T) 86.4 mmHg (83-108); ALLEN'S TEST Positive; FCOHb 0.2 % (0.5-1.5); FMetHb 0.1 % (0.3-1.12); FO2Hb 95.4 % (94-100); MINUTE VOLUME 13 L/min; PATIENT TEMPERATURE 37.8; PEEP 10 cm H2O; RESPIRATORY RATE 24 b/min; RESPIRATORY RATE (OBSERVED) 28 b/min; TIDAL VOLUME 400 mL; TOTAL HEMOGLOBIN 12.6 G/dl (14.0-18.0)
[2017-06-04 04:20] LABS: TOTAL CELLS COUNTED 100
[2017-06-04 04:21] LABS: ANISOCYTOSIS 1+; PLATELET ESTIMATE DECREASED
[2017-06-04 04:23] LABS: TOXIC GRANULATION 1+
[2017-06-04 04:24] LABS: POLYCHROMASIA FEW
[2017-06-04 07:25] LABS: HEMATOCRIT 34.9 % (42.0-52.0); HEMOGLOBIN 11.8 g/dl (14.0-17.9); MEAN CORPUSCULAR HEMOGLOBIN 29.2 PG (27.0-31.0); MEAN CORPUSCULAR HGB CONC 33.8 % (33.0-36.5); MEAN CORPUSCULAR VOLUME 86.2 FL (78-98); MEAN PLATELET VOLUME 8.8 FL (7.4-10.4); PLATELET COUNT 130 X10'3 (140-440); RED BLOOD COUNT 4.05 X10'6 (4.70-6.10); RED CELL DISTRIBUTION WIDTH 15.5 % (11.5-14.5); WHITE BLOOD COUNT 18.8 X10'3 (4.5-11.0)
[2017-06-04 07:38] LABS: ALBUMIN 1.4 G/DL (3.4-5.0); ANION GAP 10 (8-16); BLOOD UREA NITROGEN 32 MG/DL (7-18); BUN/CREATININE RATIO 10.5 (5.4-32.0); CHLORIDE 105 MMOL/L (99-107); CREATININE 3.05 MG/DL (0.60-1.10); GLUCOSE 226 MG/DL (70-104); MAGNESIUM 1.9 MG/DL (1.5-2.4); PHOSPHORUS 3.2 MG/DL (2.3-4.5); POTASSIUM 4.4 MMOL/L (3.5-5.1); SODIUM 139 MMOL/L (135-145); TOTAL CARBON DIOXIDE 23.9 MMOL/L (24-32); eGFR 20 ML/MIN
[2017-06-04] MEDS: lactobacillus rhamnosus 10,000 MMU CELLS/CAPSULE PO SCH ×3 (07:46→22:20)
[2017-06-04] MEDS: heparin, porcine 5000 units/ml vial SQ SCH ×2 (07:48→22:19)
[2017-06-04] MEDS: K and/or MAG REPLACEMENT MC SCH (08:00)
[2017-06-04] MEDS: famotidine/PF 10 mg/ml inj IV SCH (08:54)
[2017-06-04 09:11] LABS: ANISOCYTOSIS 1+; BANDS% (MANUAL) 1 % (0-10); EOSINOPHILS % (MANUAL) 1 % (0-6); LYMPHOCYTES % (MANUAL) 4 % (21-51); METAMYLEOCYTES% (MANUAL) 3 % (0-0); MONOCYTES % (MANUAL) 20 % (2-12); NEUTROPHILS % (MANUAL) 71 % (42-75); PLATELET ESTIMATE DECREASED; TOTAL CELLS COUNTED 100
[2017-06-04 13:41] LABS: BASOPHILS % (AUTO) 0 % (0-1); EOSINOPHILS # (AUTO) 0.1 X10'3 (0-0.9); EOSINOPHILS % (AUTO) 0.4 % (0-6); HEMATOCRIT 34.3 % (42.0-52.0); HEMOGLOBIN 11.8 g/dl (14.0-17.9); LYMPHOCYTES # (AUTO) 0.4 X10'3 (1.1-4.8); LYMPHOCYTES % (AUTO) 2.3 % (21-51); MEAN CORPUSCULAR HEMOGLOBIN 29.6 PG (27.0-31.0); MEAN CORPUSCULAR HGB CONC 34.3 % (33.0-36.5); MEAN CORPUSCULAR VOLUME 86.2 FL (78-98); MEAN PLATELET VOLUME 8.8 FL (7.4-10.4); MONOCYTES # (AUTO) 0.7 X10'3 (0-0.9); MONOCYTES % (AUTO) 3.7 % (2-12); NEUTROPHILS # (AUTO) 18.3 X10'3 (1.8-7.7); NEUTROPHILS % (AUTO) 93.6 % (42-75); PLATELET COUNT 131 X10'3 (140-440); RED BLOOD COUNT 3.98 X10'6 (4.70-6.10); RED CELL DISTRIBUTION WIDTH 15.6 % (11.5-14.5); WHITE BLOOD COUNT 19.5 X10'3 (4.5-11.0)
[2017-06-04 13:55] LABS: ALBUMIN 1.4 G/DL (3.4-5.0); ANION GAP 11 (8-16); BLOOD UREA NITROGEN 31 MG/DL (7-18); BUN/CREATININE RATIO 10.1 (5.4-32.0); CHLORIDE 104 MMOL/L (99-107); CREATININE 3.08 MG/DL (0.60-1.10); GLUCOSE 209 MG/DL (70-104); PHOSPHORUS 3.2 MG/DL (2.3-4.5); POTASSIUM 4.4 MMOL/L (3.5-5.1); SODIUM 139 MMOL/L (135-145); TOTAL CARBON DIOXIDE 24.3 MMOL/L (24-32); eGFR 20 ML/MIN
[2017-06-04] MEDS: metoclopramide 5 mg/ml inj IV SCH ×2 (14:06→20:00)
[2017-06-04] MEDS: morphine/NS 100mg/100ml bag 100 ML IV SCH (19:12)
[2017-06-04] MEDS ORDERED: morphine 4 MG/ML inj SYRINge IV PRN (19:18)
[2017-06-04 22:17] LABS: BASOPHILS % (AUTO) 0 % (0-1); EOSINOPHILS # (AUTO) 0.3 X10'3 (0-0.9); EOSINOPHILS % (AUTO) 1.5 % (0-6); HEMATOCRIT 33.1 % (42.0-52.0); HEMOGLOBIN 11.2 g/dl (14.0-17.9); LYMPHOCYTES # (AUTO) 0.6 X10'3 (1.1-4.8); LYMPHOCYTES % (AUTO) 3.1 % (21-51); MEAN CORPUSCULAR HEMOGLOBIN 29.2 PG (27.0-31.0); MEAN CORPUSCULAR HGB CONC 33.9 % (33.0-36.5); MEAN CORPUSCULAR VOLUME 86.2 FL (78-98); MEAN PLATELET VOLUME 8.6 FL (7.4-10.4); MONOCYTES # (AUTO) 1.4 X10'3 (0-0.9); MONOCYTES % (AUTO) 7.8 % (2-12); NEUTROPHILS # (AUTO) 16.3 X10'3 (1.8-7.7); NEUTROPHILS % (AUTO) 87.6 % (42-75); PLATELET COUNT 138 X10'3 (140-440); RED BLOOD COUNT 3.84 X10'6 (4.70-6.10); RED CELL DISTRIBUTION WIDTH 15.6 % (11.5-14.5); WHITE BLOOD COUNT 18.6 X10'3 (4.5-11.0)
[2017-06-04] MEDS: pantoprazole 40 MG vial IV SCH (22:29)
[2017-06-04 22:34] LABS: ALBUMIN 1.3 G/DL (3.4-5.0); ANION GAP 11 (8-16); BLOOD UREA NITROGEN 34 MG/DL (7-18); BUN/CREATININE RATIO 10.7 (5.4-32.0); CHLORIDE 106 MMOL/L (99-107); CREATININE 3.18 MG/DL (0.60-1.10); GLUCOSE 211 MG/DL (70-104); MAGNESIUM 1.9 MG/DL (1.5-2.4); PHOSPHORUS 3.2 MG/DL (2.3-4.5); POTASSIUM 4.4 MMOL/L (3.5-5.1); SODIUM 140 MMOL/L (135-145); eGFR 19 ML/MIN
[2017-06-04] MEDS: insulin glargine (Lantus) pen - multi-dose SQ SCH (22:36)
[2017-06-05] VITALS (20 sets, daily range): BP systolic 90–170; BP diastolic 52–86
[2017-06-05] MEDS: Duosol 4k/NO Calcium 5,000 ML HE SCH ×11 (00:40→12:28)
[2017-06-05] MEDS: metoclopramide 5 mg/ml inj IV SCH ×4 (02:00→20:48)
[2017-06-05] MEDS: piperacillin-tazo 2.25gm/50ml 50 ML IV SCH ×4 (02:30→20:48)
[2017-06-05] MEDS: insulin regular, human vial - multi-dose SQ SCH ×4 (02:33→21:18)
[2017-06-05 03:04] LABS: BASOPHILS % (AUTO) 0 % (0-1); EOSINOPHILS # (AUTO) 0.1 X10'3 (0-0.9); EOSINOPHILS % (AUTO) 0.5 % (0-6); HEMATOCRIT 31.4 % (42.0-52.0); HEMOGLOBIN 10.6 g/dl (14.0-17.9); LYMPHOCYTES # (AUTO) 0.5 X10'3 (1.1-4.8); LYMPHOCYTES % (AUTO) 2.9 % (21-51); MEAN CORPUSCULAR HEMOGLOBIN 29.3 PG (27.0-31.0); MEAN CORPUSCULAR HGB CONC 33.8 % (33.0-36.5); MEAN CORPUSCULAR VOLUME 86.6 FL (78-98); MEAN PLATELET VOLUME 9.3 FL (7.4-10.4); MONOCYTES # (AUTO) 1.1 X10'3 (0-0.9); MONOCYTES % (AUTO) 6.1 % (2-12); NEUTROPHILS # (AUTO) 16.7 X10'3 (1.8-7.7); NEUTROPHILS % (AUTO) 90.5 % (42-75); PLATELET COUNT 146 X10'3 (140-440); RED BLOOD COUNT 3.62 X10'6 (4.70-6.10); RED CELL DISTRIBUTION WIDTH 15.3 % (11.5-14.5); WHITE BLOOD COUNT 18.5 X10'3 (4.5-11.0)
[2017-06-05 03:19] LABS: ALANINE AMINOTRANSFERASE 69 U/L (12-78); ALBUMIN 1.2 G/DL (3.4-5.0); ALBUMIN/GLOBULIN RATIO 0.3 (1.1-1.5); ALKALINE PHOSPHATASE 88 IU/L (46-116); ANION GAP 9 (8-16); ASPARTATE AMINO TRANSFERASE 31 U/L (10-37); BILIRUBIN,TOTAL 1.6 MG/DL (0.1-1.0); BLOOD UREA NITROGEN 39 MG/DL (7-18); BUN/CREATININE RATIO 10.7 (5.4-32.0); CALCIUM 7.7 MG/DL (8.5-10.1); CHLORIDE 106 MMOL/L (99-107); CREATININE 3.65 MG/DL (0.60-1.10); GLUCOSE 217 MG/DL (70-104); MAGNESIUM 1.9 MG/DL (1.5-2.4); PHOSPHORUS 3.4 MG/DL (2.3-4.5); POTASSIUM 4.4 MMOL/L (3.5-5.1); SODIUM 139 MMOL/L (135-145); TOTAL CARBON DIOXIDE 24.5 MMOL/L (24-32); TOTAL PROTEIN 5.3 G/DL (6.4-8.2); eGFR 16 ML/MIN
[2017-06-05 04:20] LABS: ABG BASE EXCESS -2.5 mmol/L (-2.0-3.0); ABG HCO3 21.5 mmol/L (22.0-26.0); ABG OXYGEN SATURATION 95.5 % (95-98); ABG PCO2 (T) 33.7 mmHg (35.0-48.0); ABG PH (T) 7.421 (7.350-7.450); ABG PO2 (T) 75.5 mmHg (83-108); ALLEN'S TEST Positive; FCOHb 0.4 % (0.5-1.5); FMetHb 0.3 % (0.3-1.12); FO2Hb 94.8 % (94-100); MINUTE VOLUME 15 L/min; PATIENT TEMPERATURE 36.4; PEEP 5 cm H2O; RESPIRATORY RATE 24 b/min; RESPIRATORY RATE (OBSERVED) 35 b/min; TIDAL VOLUME 400 mL; TOTAL HEMOGLOBIN 11.1 G/dl (14.0-18.0)
[2017-06-05 05:47] LABS: BASOPHILS % (AUTO) 0.2 % (0-1); EOSINOPHILS # (AUTO) 0.2 X10'3 (0-0.9); HEMATOCRIT 31.4 % (42.0-52.0); HEMOGLOBIN 10.8 g/dl (14.0-17.9); LYMPHOCYTES # (AUTO) 0.6 X10'3 (1.1-4.8); LYMPHOCYTES % (AUTO) 2.9 % (21-51); MEAN CORPUSCULAR HEMOGLOBIN 29.3 PG (27.0-31.0); MEAN CORPUSCULAR HGB CONC 34.5 % (33.0-36.5); MEAN CORPUSCULAR VOLUME 85.1 FL (78-98); MEAN PLATELET VOLUME 8.8 FL (7.4-10.4); MONOCYTES # (AUTO) 1.2 X10'3 (0-0.9); NEUTROPHILS # (AUTO) 18.1 X10'3 (1.8-7.7); NEUTROPHILS % (AUTO) 89.9 % (42-75); PLATELET COUNT 146 X10'3 (140-440); RED BLOOD COUNT 3.69 X10'6 (4.70-6.10); RED CELL DISTRIBUTION WIDTH 15.6 % (11.5-14.5); WHITE BLOOD COUNT 20.1 X10'3 (4.5-11.0)
[2017-06-05] MEDS: citrate dextrose 1000ml IV sol 1,000 ML IV PRN ×2 (05:48→09:25)
[2017-06-05 05:59] LABS: ALBUMIN 1.3 G/DL (3.4-5.0); ANION GAP 10 (8-16); BLOOD UREA NITROGEN 39 MG/DL (7-18); CHLORIDE 106 MMOL/L (99-107); CREATININE 3.55 MG/DL (0.60-1.10); GLUCOSE 202 MG/DL (70-104); PHOSPHORUS 3.1 MG/DL (2.3-4.5); POTASSIUM 4.2 MMOL/L (3.5-5.1); SODIUM 139 MMOL/L (135-145); TOTAL CARBON DIOXIDE 23.3 MMOL/L (24-32); eGFR 17 ML/MIN
[2017-06-05 07:29] LABS: ANISOCYTOSIS 1+; NUCLEATED RED BLOOD CELLS 1 /100WBC (0-0); PLATELET ESTIMATE NORMAL; TOTAL CELLS COUNTED 100
[2017-06-05] MEDS: lactobacillus rhamnosus 10,000 MMU CELLS/CAPSULE PO SCH ×2 (08:00→20:50)
[2017-06-05] MEDS: K and/or MAG REPLACEMENT MC SCH (08:00)
[2017-06-05] MEDS: pantoprazole 40 MG vial IV SCH (08:08)
[2017-06-05] MEDS: heparin, porcine 5000 units/ml vial SQ SCH ×2 (08:18→20:49)
[2017-06-05] MEDS ORDERED: heparin 1,000 units/ml 10ml inj HE ONE ×2 (10:45)
[2017-06-05] MEDS: insulin glargine (Lantus) pen - multi-dose SQ SCH (21:21)
[2017-06-06] VITALS (24 sets, daily range): BP systolic 84–155; BP diastolic 45–76
[2017-06-06] MEDS: piperacillin-tazo 2.25gm/50ml 50 ML IV SCH ×4 (02:36→21:52)
[2017-06-06] MEDS: metoclopramide 5 mg/ml inj IV SCH ×4 (02:36→21:54)
[2017-06-06] MEDS: insulin regular, human vial - multi-dose SQ SCH ×3 (02:39→22:21)
[2017-06-06 03:11] LABS: BASOPHILS % (AUTO) 0 % (0-1); EOSINOPHILS # (AUTO) 0.2 X10'3 (0-0.9); EOSINOPHILS % (AUTO) 0.8 % (0-6); HEMATOCRIT 30.4 % (42.0-52.0); HEMOGLOBIN 10.3 g/dl (14.0-17.9); LYMPHOCYTES # (AUTO) 0.4 X10'3 (1.1-4.8); LYMPHOCYTES % (AUTO) 1.9 % (21-51); MEAN CORPUSCULAR HEMOGLOBIN 29.1 PG (27.0-31.0); MEAN CORPUSCULAR VOLUME 85.5 FL (78-98); MEAN PLATELET VOLUME 9.2 FL (7.4-10.4); MONOCYTES # (AUTO) 1.2 X10'3 (0-0.9); MONOCYTES % (AUTO) 5.1 % (2-12); NEUTROPHILS # (AUTO) 21.5 X10'3 (1.8-7.7); NEUTROPHILS % (AUTO) 92.2 % (42-75); PLATELET COUNT 183 X10'3 (140-440); RED BLOOD COUNT 3.56 X10'6 (4.70-6.10); RED CELL DISTRIBUTION WIDTH 15.6 % (11.5-14.5); WHITE BLOOD COUNT 23.3 X10'3 (4.5-11.0)
[2017-06-06 03:18] LABS: ALANINE AMINOTRANSFERASE 49 U/L (12-78); ALBUMIN 1.3 G/DL (3.4-5.0); ALBUMIN/GLOBULIN RATIO 0.3 (1.1-1.5); ALKALINE PHOSPHATASE 115 IU/L (46-116); ANION GAP 11 (8-16); ASPARTATE AMINO TRANSFERASE 27 U/L (10-37); BILIRUBIN,TOTAL 1.4 MG/DL (0.1-1.0); BLOOD UREA NITROGEN 54 MG/DL (7-18); BUN/CREATININE RATIO 11.3 (5.4-32.0); CALCIUM 7.8 MG/DL (8.5-10.1); CHLORIDE 103 MMOL/L (99-107); CREATININE 4.77 MG/DL (0.60-1.10); GLUCOSE 164 MG/DL (70-104); POTASSIUM 4.2 MMOL/L (3.5-5.1); SODIUM 138 MMOL/L (135-145); TOTAL CARBON DIOXIDE 24.4 MMOL/L (24-32); TOTAL PROTEIN 5.5 G/DL (6.4-8.2); eGFR 12 ML/MIN
[2017-06-06 03:46] LABS: ABG BASE EXCESS -3.3 mmol/L (-2.0-3.0); ABG HCO3 20.2 mmol/L (22.0-26.0); ABG OXYGEN SATURATION 94.1 % (95-98); ABG PCO2 (T) 30.4 mmHg (35.0-48.0); ABG PH (T) 7.438 (7.350-7.450); ABG PO2 (T) 70.1 mmHg (83-108); ALLEN'S TEST Positive; FCOHb 0.3 % (0.5-1.5); FMetHb 0.2 % (0.3-1.12); FO2Hb 93.6 % (94-100); MINUTE VOLUME 14 L/min; PATIENT TEMPERATURE 36.4; PEEP 5 cm H2O; RESPIRATORY RATE 24 b/min; RESPIRATORY RATE (OBSERVED) 34 b/min; TIDAL VOLUME 400 mL; TOTAL HEMOGLOBIN 11.3 G/dl (14.0-18.0)
[2017-06-06 07:06] LABS: TOTAL CELLS COUNTED 100
[2017-06-06 07:08] LABS: ANISOCYTOSIS 1+; PLATELET ESTIMATE NORMAL; POLYCHROMASIA 2+; TOXIC GRANULATION 3+
[2017-06-06 07:11] LABS: MAGNESIUM 2.1 MG/DL (1.5-2.4)
[2017-06-06] MEDS: lactobacillus rhamnosus 10,000 MMU CELLS/CAPSULE PO SCH ×2 (07:28→21:54)
[2017-06-06] MEDS: pantoprazole 40 MG vial IV SCH (07:28)
[2017-06-06] MEDS: heparin, porcine 5000 units/ml vial SQ SCH ×2 (07:28→21:54)
[2017-06-06] MEDS: K and/or MAG REPLACEMENT MC SCH (07:47)
[2017-06-06] MEDS ORDERED: normal saline 1000ml 250 ML IV PRN (08:00)
[2017-06-06] MEDS ORDERED: epoetin 20,000 units/ml inj IV ONE (08:00)
[2017-06-06] MEDS ORDERED: heparin 1,000unit/ml 10ml vial 10 ML IV ONE (08:00)
[2017-06-06] MEDS ORDERED: heparin 1,000 units/ml 10ml inj HE ONE ×2 (08:00)
[2017-06-06 10:18] LABS: CLARITY,URINE TURBID (Clear); COLOR,URINE AMBER (Yellow); GLUCOSE, URINE 250 mg/dl (Neg); KETONES,URINE NEGATIVE (Neg); LEUKOCYTE ESTERASE ,URINE TRACE (Neg); OCCULT BLOOD,URINE LARGE (Neg); PROTEIN,URINE >=300 mg/dl (Neg); UROBILINOGEN,URINE 0.2 E.U/dL (0.2-1.0)
[2017-06-06 10:25] LABS: UA COLLECTION TYPE NON-SPECIFIED
[2017-06-06 10:27] LABS: BACTERIA,URINE FEW /HPF (Neg); RBC,URINE TNTC /HPF (0-2); SPERM FEW /HPF (NEGATIVE); SQUAMOUS EPITHELIAL CELL,UR NONE SEEN /LPF (FEW); WBC,URINE 0-4 /HPF (0-4)
[2017-06-06] MEDS: morphine/NS 100mg/100ml bag 100 ML IV SCH (11:12)
[2017-06-06] MEDS: insulin glargine (Lantus) pen - multi-dose SQ SCH (22:14)
[2017-06-07] VITALS (24 sets, daily range): BP systolic 104–158; BP diastolic 49–75
[2017-06-07] MEDS: metoclopramide 5 mg/ml inj IV SCH ×4 (02:49→20:48)
[2017-06-07] MEDS: piperacillin-tazo 2.25gm/50ml 50 ML IV SCH ×4 (02:50→20:48)
[2017-06-07] MEDS: insulin regular, human vial - multi-dose SQ SCH ×4 (02:56→20:56)
[2017-06-07 04:10] LABS: ABG BASE EXCESS -3.3 mmol/L (-2.0-3.0); ABG HCO3 20.5 mmol/L (22.0-26.0); ABG OXYGEN SATURATION 95.7 % (95-98); ABG PCO2 (T) 32.7 mmHg (35.0-48.0); ABG PH (T) 7.416 (7.350-7.450); ABG PO2 (T) 84.4 mmHg (83-108); ALLEN'S TEST Positive; FCOHb 0.3 % (0.5-1.5); FMetHb 0.1 % (0.3-1.12); FO2Hb 95.3 % (94-100); MINUTE VOLUME 13 L/min; PEEP 5 cm H2O; RESPIRATORY RATE 24 b/min; RESPIRATORY RATE (OBSERVED) 28 b/min; TIDAL VOLUME 400 mL; TOTAL HEMOGLOBIN 10.1 G/dl (14.0-18.0)
[2017-06-07 04:22] LABS: BASOPHILS % (AUTO) 0 % (0-1); EOSINOPHILS # (AUTO) 0.1 X10'3 (0-0.9); EOSINOPHILS % (AUTO) 0.5 % (0-6); HEMATOCRIT 27.4 % (42.0-52.0); HEMOGLOBIN 9.4 g/dl (14.0-17.9); LYMPHOCYTES # (AUTO) 0.7 X10'3 (1.1-4.8); MEAN CORPUSCULAR HEMOGLOBIN 29.3 PG (27.0-31.0); MEAN CORPUSCULAR HGB CONC 34.3 % (33.0-36.5); MEAN CORPUSCULAR VOLUME 85.2 FL (78-98); MEAN PLATELET VOLUME 9.1 FL (7.4-10.4); MONOCYTES # (AUTO) 0.9 X10'3 (0-0.9); MONOCYTES % (AUTO) 4.1 % (2-12); NEUTROPHILS # (AUTO) 20.9 X10'3 (1.8-7.7); NEUTROPHILS % (AUTO) 92.4 % (42-75); PLATELET COUNT 250 X10'3 (140-440); RED BLOOD COUNT 3.21 X10'6 (4.70-6.10); RED CELL DISTRIBUTION WIDTH 15.6 % (11.5-14.5); WHITE BLOOD COUNT 22.6 X10'3 (4.5-11.0)
[2017-06-07 04:33] LABS: ALANINE AMINOTRANSFERASE 38 U/L (12-78); ALBUMIN 1.2 G/DL (3.4-5.0); ALBUMIN/GLOBULIN RATIO 0.3 (1.1-1.5); ALKALINE PHOSPHATASE 136 IU/L (46-116); ANION GAP 16 (8-16); ASPARTATE AMINO TRANSFERASE 27 U/L (10-37); BLOOD UREA NITROGEN 53 MG/DL (7-18); BUN/CREATININE RATIO 11.3 (5.4-32.0); CALCIUM 7.8 MG/DL (8.5-10.1); CHLORIDE 98 MMOL/L (99-107); CREATININE 4.68 MG/DL (0.60-1.10); GLUCOSE 201 MG/DL (70-104); MAGNESIUM 2.1 MG/DL (1.5-2.4); PHOSPHORUS 5.9 MG/DL (2.3-4.5); SODIUM 136 MMOL/L (135-145); TOTAL CARBON DIOXIDE 21.8 MMOL/L (24-32); TOTAL PROTEIN 5.5 G/DL (6.4-8.2); eGFR 12 ML/MIN
[2017-06-07] MEDS: K and/or MAG REPLACEMENT MC SCH (08:00)
[2017-06-07 08:25] LABS: ANISOCYTOSIS 1+; PLATELET ESTIMATE NORMAL; POLYCHROMASIA 1+; TOTAL CELLS COUNTED 100; TOXIC GRANULATION 3+
[2017-06-07] MEDS: pantoprazole 40 MG vial IV SCH (09:24)
[2017-06-07] MEDS: lactobacillus rhamnosus 10,000 MMU CELLS/CAPSULE PO SCH ×2 (09:25→20:47)
[2017-06-07] MEDS: heparin, porcine 5000 units/ml vial SQ SCH ×2 (09:25→20:48)
[2017-06-07] MEDS: insulin glargine (Lantus) pen - multi-dose SQ SCH (20:58)
[2017-06-08] VITALS (24 sets, daily range): BP systolic 91–124; BP diastolic 50–71
[2017-06-08] MEDS: piperacillin-tazo 2.25gm/50ml 50 ML IV SCH ×4 (02:22→19:50)
[2017-06-08] MEDS: insulin regular, human vial - multi-dose SQ SCH ×3 (02:32→20:08)
[2017-06-08] MEDS: metoclopramide 5 mg/ml inj IV SCH ×4 (02:54→19:50)
[2017-06-08 02:56] LABS: ABG BASE EXCESS -5.1 mmol/L (-2.0-3.0); ABG HCO3 18.3 mmol/L (22.0-26.0); ABG OXYGEN SATURATION 96.7 % (95-98); ABG PCO2 (T) 30.2 mmHg (35.0-48.0); ABG PH (T) 7.405 (7.350-7.450); ABG PO2 (T) 104.6 mmHg (83-108); ALLEN'S TEST Positive; FCOHb 0.3 % (0.5-1.5); FMetHb 0.2 % (0.3-1.12); FO2Hb 96.2 % (94-100); MINUTE VOLUME 13 L/min; PATIENT TEMPERATURE 38.1; PEEP 5 cm H2O; RESPIRATORY RATE 24 b/min; RESPIRATORY RATE (OBSERVED) 30 b/min; TIDAL VOLUME 400 mL
[2017-06-08] MEDS: morphine/NS 100mg/100ml bag 100 ML IV SCH (03:12)
[2017-06-08 03:34] LABS: BASOPHILS % (AUTO) 0.1 % (0-1); EOSINOPHILS # (AUTO) 0.2 X10'3 (0-0.9); EOSINOPHILS % (AUTO) 0.7 % (0-6); HEMATOCRIT 27.5 % (42.0-52.0); HEMOGLOBIN 9.5 g/dl (14.0-17.9); LYMPHOCYTES # (AUTO) 0.5 X10'3 (1.1-4.8); MEAN CORPUSCULAR HEMOGLOBIN 29.3 PG (27.0-31.0); MEAN CORPUSCULAR HGB CONC 34.4 % (33.0-36.5); MEAN CORPUSCULAR VOLUME 85.1 FL (78-98); MEAN PLATELET VOLUME 8.4 FL (7.4-10.4); MONOCYTES # (AUTO) 1.1 X10'3 (0-0.9); MONOCYTES % (AUTO) 4.5 % (2-12); NEUTROPHILS # (AUTO) 22.3 X10'3 (1.8-7.7); NEUTROPHILS % (AUTO) 92.7 % (42-75); PLATELET COUNT 362 X10'3 (140-440); RED BLOOD COUNT 3.23 X10'6 (4.70-6.10); RED CELL DISTRIBUTION WIDTH 15.1 % (11.5-14.5)
[2017-06-08 03:47] LABS: ALANINE AMINOTRANSFERASE 38 U/L (12-78); ALBUMIN 1.3 G/DL (3.4-5.0); ALBUMIN/GLOBULIN RATIO 0.3 (1.1-1.5); ALKALINE PHOSPHATASE 164 IU/L (46-116); ANION GAP 17 (8-16); ASPARTATE AMINO TRANSFERASE 28 U/L (10-37); BILIRUBIN,TOTAL 1.1 MG/DL (0.1-1.0); BLOOD UREA NITROGEN 75 MG/DL (7-18); BUN/CREATININE RATIO 11.2 (5.4-32.0); CALCIUM 7.8 MG/DL (8.5-10.1); CHLORIDE 98 MMOL/L (99-107); CREATININE 6.69 MG/DL (0.60-1.10); GLUCOSE 176 MG/DL (70-104); MAGNESIUM 2.2 MG/DL (1.5-2.4); PHOSPHORUS 6.3 MG/DL (2.3-4.5); POTASSIUM 4.1 MMOL/L (3.5-5.1); SODIUM 136 MMOL/L (135-145); TOTAL CARBON DIOXIDE 21.5 MMOL/L (24-32); TOTAL PROTEIN 5.8 G/DL (6.4-8.2); eGFR 8 ML/MIN
[2017-06-08] MEDS: lactobacillus rhamnosus 10,000 MMU CELLS/CAPSULE PO SCH ×2 (07:47→19:50)
[2017-06-08] MEDS: heparin, porcine 5000 units/ml vial SQ SCH ×2 (07:48→19:50)
[2017-06-08] MEDS: pantoprazole 40 MG vial IV SCH (07:48)
[2017-06-08] MEDS ORDERED: normal saline 1000ml 250 ML IV PRN (08:00)
[2017-06-08] MEDS ORDERED: heparin 1,000 units/ml 10ml inj HE ONE ×2 (08:00)
[2017-06-08] MEDS ORDERED: heparin 1,000 units/ml 10ml inj IV ONE (08:00)
[2017-06-08] MEDS ORDERED: albumin (human) 25% 100ml IV 100 ML IV PRN (08:00)
[2017-06-08] MEDS ORDERED: epoetin 20,000 units/ml inj IV ONE (08:00)
[2017-06-08] MEDS ORDERED: heparin 1,000unit/ml 10ml vial 10 ML IV ONE (08:00)
[2017-06-08] MEDS: K and/or MAG REPLACEMENT MC SCH (08:00)
[2017-06-08 09:35] LABS: TOTAL CELLS COUNTED 100
[2017-06-08 09:37] LABS: ANISOCYTOSIS 1+; PLATELET ESTIMATE NORMAL
[2017-06-08 09:38] LABS: POLYCHROMASIA 1+
[2017-06-08 09:40] LABS: LARGE PLATELETS FEW; SPHEROCYTES 1+
[2017-06-08 09:41] LABS: TOXIC GRANULATION 2+
[2017-06-08] MEDS: insulin glargine (Lantus) pen - multi-dose SQ SCH (20:09)
[2017-06-09] VITALS (34 sets, daily range): BP systolic 44–152; BP diastolic 43–81
[2017-06-09] MEDS: piperacillin-tazo 2.25gm/50ml 50 ML IV SCH ×2 (02:03→08:00)
[2017-06-09] MEDS: metoclopramide 5 mg/ml inj IV SCH ×4 (02:03→20:00)
[2017-06-09] MEDS: insulin regular, human vial - multi-dose SQ SCH ×4 (02:06→19:56)
[2017-06-09 02:24] LABS: BASOPHILS % (AUTO) 0 % (0-1); EOSINOPHILS # (AUTO) 0.5 X10'3 (0-0.9); EOSINOPHILS % (AUTO) 2.9 % (0-6); HEMATOCRIT 26.5 % (42.0-52.0); HEMOGLOBIN 8.9 g/dl (14.0-17.9); LYMPHOCYTES # (AUTO) 0.6 X10'3 (1.1-4.8); LYMPHOCYTES % (AUTO) 3.1 % (21-51); MEAN CORPUSCULAR HEMOGLOBIN 29.1 PG (27.0-31.0); MEAN CORPUSCULAR HGB CONC 33.8 % (33.0-36.5); MEAN CORPUSCULAR VOLUME 86.2 FL (78-98); MEAN PLATELET VOLUME 8.4 FL (7.4-10.4); MONOCYTES # (AUTO) 1.3 X10'3 (0-0.9); MONOCYTES % (AUTO) 6.8 % (2-12); NEUTROPHILS # (AUTO) 16.3 X10'3 (1.8-7.7); NEUTROPHILS % (AUTO) 87.2 % (42-75); PLATELET COUNT 459 X10'3 (140-440); RED BLOOD COUNT 3.08 X10'6 (4.70-6.10); RED CELL DISTRIBUTION WIDTH 15.4 % (11.5-14.5); WHITE BLOOD COUNT 18.7 X10'3 (4.5-11.0)
[2017-06-09 02:27] LABS: ALANINE AMINOTRANSFERASE 33 U/L (12-78); ALBUMIN 1.3 G/DL (3.4-5.0); ALBUMIN/GLOBULIN RATIO 0.3 (1.1-1.5); ALKALINE PHOSPHATASE 145 IU/L (46-116); ANION GAP 15 (8-16); ASPARTATE AMINO TRANSFERASE 26 U/L (10-37); BILIRUBIN,TOTAL 0.8 MG/DL (0.1-1.0); BLOOD UREA NITROGEN 60 MG/DL (7-18); BUN/CREATININE RATIO 9.9 (5.4-32.0); CHLORIDE 98 MMOL/L (99-107); CREATININE 6.06 MG/DL (0.60-1.10); GLUCOSE 205 MG/DL (70-104); POTASSIUM 3.9 MMOL/L (3.5-5.1); SODIUM 136 MMOL/L (135-145); TOTAL CARBON DIOXIDE 23.2 MMOL/L (24-32); eGFR 9 ML/MIN
[2017-06-09 04:01] LABS: ABG BASE EXCESS -1.8 mmol/L (-2.0-3.0); ABG HCO3 21.9 mmol/L (22.0-26.0); ABG OXYGEN SATURATION 89.3 % (95-98); ABG PH (T) 7.439 (7.350-7.450); ABG PO2 (T) 60.3 mmHg (83-108); ALLEN'S TEST Positive; FCOHb 0.3 % (0.5-1.5); FMetHb 0.2 % (0.3-1.12); FO2Hb 88.9 % (94-100); MINUTE VOLUME 10 L/min; PATIENT TEMPERATURE 36.7; PEEP 5 cm H2O; RESPIRATORY RATE 24 b/min; RESPIRATORY RATE (OBSERVED) 25 b/min; TIDAL VOLUME 400 mL
[2017-06-09 04:16] LABS: TOTAL CELLS COUNTED 100
[2017-06-09 04:17] LABS: ANISOCYTOSIS 1+; LARGE PLATELETS FEW; PLATELET ESTIMATE INCREASED; POLYCHROMASIA 1+; TOXIC GRANULATION 2+
[2017-06-09] MEDS: lactobacillus rhamnosus 10,000 MMU CELLS/CAPSULE PO SCH ×2 (08:00→19:48)
[2017-06-09] MEDS: heparin, porcine 5000 units/ml vial SQ SCH ×2 (08:00→19:48)
[2017-06-09] MEDS: pantoprazole 40 MG vial IV SCH (08:00)
[2017-06-09] MEDS: K and/or MAG REPLACEMENT MC SCH (08:00)
[2017-06-09] MEDS ORDERED: heparin 1,000unit/ml 10ml vial 10 ML ONE (13:56)
[2017-06-09] MEDS ORDERED: LIDOcaine 1%/PF (10mg/ml) 5ml vial ONE (13:57)
[2017-06-09] MEDS ORDERED: iohexol 300 MG/1 ML 50ml polymer ONE (14:30)
[2017-06-09] MEDS: insulin glargine (Lantus) pen - multi-dose SQ SCH (20:06)
[2017-06-10] VITALS (24 sets, daily range): BP systolic 82–119; BP diastolic 43–67
[2017-06-10] MEDS: metoclopramide 5 mg/ml inj IV SCH (02:00)
[2017-06-10] MEDS: insulin regular, human vial - multi-dose SQ SCH ×4 (02:19→20:01)
[2017-06-10 04:05] LABS: ABG BASE EXCESS -5.1 mmol/L (-2.0-3.0); ABG HCO3 18.6 mmol/L (22.0-26.0); ABG OXYGEN SATURATION 93.9 % (95-98); ABG PCO2 (T) 29.7 mmHg (35.0-48.0); ABG PH (T) 7.414 (7.350-7.450); ABG PO2 (T) 74.1 mmHg (83-108); ALLEN'S TEST Positive; FCOHb 0.3 % (0.5-1.5); FMetHb 0.1 % (0.3-1.12); FO2Hb 93.5 % (94-100); MINUTE VOLUME 12 L/min; PEEP 5 cm H2O; RESPIRATORY RATE 24 b/min; RESPIRATORY RATE (OBSERVED) 28 b/min; TIDAL VOLUME 400 mL; TOTAL HEMOGLOBIN 9.9 G/dl (14.0-18.0)
[2017-06-10 06:46] LABS: BASOPHILS % (AUTO) 0 % (0-1); EOSINOPHILS # (AUTO) 0.3 X10'3 (0-0.9); EOSINOPHILS % (AUTO) 1.6 % (0-6); HEMATOCRIT 27.4 % (42.0-52.0); HEMOGLOBIN 9.3 g/dl (14.0-17.9); LYMPHOCYTES # (AUTO) 0.6 X10'3 (1.1-4.8); LYMPHOCYTES % (AUTO) 3.3 % (21-51); MEAN CORPUSCULAR HEMOGLOBIN 29.2 PG (27.0-31.0); MEAN CORPUSCULAR VOLUME 85.8 FL (78-98); MEAN PLATELET VOLUME 8.7 FL (7.4-10.4); MONOCYTES # (AUTO) 1.2 X10'3 (0-0.9); MONOCYTES % (AUTO) 6.8 % (2-12); NEUTROPHILS # (AUTO) 15.9 X10'3 (1.8-7.7); NEUTROPHILS % (AUTO) 88.3 % (42-75); PLATELET COUNT 541 X10'3 (140-440); RED CELL DISTRIBUTION WIDTH 15.8 % (11.5-14.5)
[2017-06-10 06:59] LABS: ALANINE AMINOTRANSFERASE 25 U/L (12-78); ALBUMIN 1.3 G/DL (3.4-5.0); ALBUMIN/GLOBULIN RATIO 0.3 (1.1-1.5); ALKALINE PHOSPHATASE 132 IU/L (46-116); ANION GAP 19 (8-16); ASPARTATE AMINO TRANSFERASE 22 U/L (10-37); BILIRUBIN,TOTAL 0.7 MG/DL (0.1-1.0); BLOOD UREA NITROGEN 82 MG/DL (7-18); BUN/CREATININE RATIO 10.4 (5.4-32.0); CALCIUM 8.1 MG/DL (8.5-10.1); CHLORIDE 99 MMOL/L (99-107); CREATININE 7.91 MG/DL (0.60-1.10); GLUCOSE 115 MG/DL (70-104); POTASSIUM 3.8 MMOL/L (3.5-5.1); SODIUM 137 MMOL/L (135-145); TOTAL CARBON DIOXIDE 19.4 MMOL/L (24-32); TOTAL PROTEIN 6.1 G/DL (6.4-8.2); eGFR 7 ML/MIN
[2017-06-10 07:15] LABS: BANDS% (MANUAL) 2 % (0-10); LYMPHOCYTES % (MANUAL) 4 % (21-51); MONOCYTES % (MANUAL) 5 % (2-12); NEUTROPHILS % (MANUAL) 86 % (42-75); TOTAL CELLS COUNTED 100
[2017-06-10 07:16] LABS: EOSINOPHILS % (MANUAL) 1 % (0-6); LARGE PLATELETS FEW; METAMYLEOCYTES% (MANUAL) 1 % (0-0); MYELOCYTES % (MANUAL) 1 % (0-0); PLATELET ESTIMATE INCREASED; POLYCHROMASIA 1+
[2017-06-10 07:17] LABS: ANISOCYTOSIS 1+; TOXIC GRANULATION 2+
[2017-06-10] MEDS: K and/or MAG REPLACEMENT MC SCH (08:00)
[2017-06-10] MEDS: lactobacillus rhamnosus 10,000 MMU CELLS/CAPSULE PO SCH ×2 (08:28→20:12)
[2017-06-10] MEDS: heparin, porcine 5000 units/ml vial SQ SCH ×2 (08:29→20:12)
[2017-06-10] MEDS: pantoprazole 40 MG vial IV SCH (08:29)
[2017-06-10] MEDS ORDERED: heparin 1,000unit/ml 10ml vial 10 ML IV ONE (11:18)
[2017-06-10] MEDS ORDERED: normal saline 1000ml 250 ML IV PRN (11:18)
[2017-06-10] MEDS ORDERED: epoetin 20,000 units/ml inj IV ONE (11:20)
[2017-06-10] MEDS ORDERED: heparin 1,000 units/ml 10ml inj HE ONE ×2 (11:25)
[2017-06-10] MEDS: insulin glargine (Lantus) pen - multi-dose SQ SCH (20:02)
[2017-06-11] VITALS (24 sets, daily range): BP systolic 92–134; BP diastolic 45–71
[2017-06-11] MEDS: insulin regular, human vial - multi-dose SQ SCH ×3 (03:07→14:34)
[2017-06-11 04:25] LABS: ABG BASE EXCESS 0.1 mmol/L (-2.0-3.0); ABG HCO3 23.3 mmol/L (22.0-26.0); ABG OXYGEN SATURATION 95.5 % (95-98); ABG PCO2 (T) 32.8 mmHg (35.0-48.0); ALLEN'S TEST Positive; FCOHb 0.3 % (0.5-1.5); FMetHb 0.3 % (0.3-1.12); FO2Hb 94.9 % (94-100); PATIENT TEMPERATURE 37.3; PEEP 5 cm H2O; RESPIRATORY RATE 24 b/min; RESPIRATORY RATE (OBSERVED) 27 b/min; TOTAL HEMOGLOBIN 9.8 G/dl (14.0-18.0)
[2017-06-11 07:33] LABS: BASOPHILS % (AUTO) 0 % (0-1); EOSINOPHILS # (AUTO) 0.5 X10'3 (0-0.9); EOSINOPHILS % (AUTO) 2.6 % (0-6); HEMATOCRIT 27.5 % (42.0-52.0); HEMOGLOBIN 9.3 g/dl (14.0-17.9); LYMPHOCYTES # (AUTO) 0.8 X10'3 (1.1-4.8); LYMPHOCYTES % (AUTO) 4.2 % (21-51); MEAN CORPUSCULAR HEMOGLOBIN 28.8 PG (27.0-31.0); MEAN CORPUSCULAR HGB CONC 33.9 % (33.0-36.5); MEAN PLATELET VOLUME 8.4 FL (7.4-10.4); MONOCYTES # (AUTO) 1.7 X10'3 (0-0.9); MONOCYTES % (AUTO) 9.6 % (2-12); NEUTROPHILS # (AUTO) 15.1 X10'3 (1.8-7.7); NEUTROPHILS % (AUTO) 83.6 % (42-75); PLATELET COUNT 740 X10'3 (140-440); RED BLOOD COUNT 3.24 X10'6 (4.70-6.10); RED CELL DISTRIBUTION WIDTH 15.3 % (11.5-14.5); WHITE BLOOD COUNT 18.1 X10'3 (4.5-11.0)
[2017-06-11 07:51] LABS: ALANINE AMINOTRANSFERASE 20 U/L (12-78); ALBUMIN 1.2 G/DL (3.4-5.0); ALBUMIN/GLOBULIN RATIO 0.3 (1.1-1.5); ALKALINE PHOSPHATASE 113 IU/L (46-116); ANION GAP 12 (8-16); ASPARTATE AMINO TRANSFERASE 19 U/L (10-37); BILIRUBIN,TOTAL 0.6 MG/DL (0.1-1.0); BLOOD UREA NITROGEN 46 MG/DL (7-18); BUN/CREATININE RATIO 8.7 (5.4-32.0); CALCIUM 7.9 MG/DL (8.5-10.1); CHLORIDE 101 MMOL/L (99-107); CREATININE 5.28 MG/DL (0.60-1.10); GLUCOSE 152 MG/DL (70-104); POTASSIUM 3.7 MMOL/L (3.5-5.1); SODIUM 135 MMOL/L (135-145); TOTAL CARBON DIOXIDE 22.4 MMOL/L (24-32); TOTAL PROTEIN 5.9 G/DL (6.4-8.2); eGFR 11 ML/MIN
[2017-06-11] MEDS: K and/or MAG REPLACEMENT MC SCH (08:00)
[2017-06-11 08:04] LABS: C DIFF ANTIGEN NEGATIVE (NEGATIVE); C DIFF SPECIMEN=DIARRHEA? ACCEPTABLE; C DIFFICILE TOXINS A&B NEGATIVE (Neg)
[2017-06-11] MEDS: lactobacillus rhamnosus 10,000 MMU CELLS/CAPSULE PO SCH ×2 (08:34→20:34)
[2017-06-11] MEDS: heparin, porcine 5000 units/ml vial SQ SCH ×2 (08:34→20:34)
[2017-06-11] MEDS: pantoprazole 40 MG vial IV SCH (08:34)
[2017-06-11] MEDS ORDERED: ipratropium/albuterol 3ml nebule NEB PRN (09:10)
[2017-06-11] MEDS ORDERED: racepinephrine 11.25mg/0.5ml nebule NEB PRN (09:10)
[2017-06-11] MEDS: ipratropium/albuterol 3ml nebule NEB SCH ×2 (15:19→21:12)
[2017-06-11] MEDS: insulin glargine (Lantus) pen - multi-dose SQ SCH (20:34)
[2017-06-12] VITALS (19 sets, daily range): BP systolic 93–143; BP diastolic 49–70
[2017-06-12] MEDS: ipratropium/albuterol 3ml nebule NEB SCH ×4 (03:33→20:54)
[2017-06-12 05:35] LABS: BASOPHILS % (AUTO) 0.1 % (0-1); EOSINOPHILS # (AUTO) 0.4 X10'3 (0-0.9); EOSINOPHILS % (AUTO) 2.2 % (0-6); HEMATOCRIT 29.9 % (42.0-52.0); HEMOGLOBIN 10.3 g/dl (14.0-17.9); LYMPHOCYTES # (AUTO) 0.6 X10'3 (1.1-4.8); LYMPHOCYTES % (AUTO) 3.2 % (21-51); MEAN CORPUSCULAR HEMOGLOBIN 29.5 PG (27.0-31.0); MEAN CORPUSCULAR HGB CONC 34.3 % (33.0-36.5); MEAN PLATELET VOLUME 8.2 FL (7.4-10.4); MONOCYTES # (AUTO) 1.7 X10'3 (0-0.9); MONOCYTES % (AUTO) 8.7 % (2-12); NEUTROPHILS % (AUTO) 85.8 % (42-75); PLATELET COUNT 914 X10'3 (140-440); RED BLOOD COUNT 3.47 X10'6 (4.70-6.10); RED CELL DISTRIBUTION WIDTH 16.1 % (11.5-14.5); WHITE BLOOD COUNT 19.8 X10'3 (4.5-11.0)
[2017-06-12 05:52] LABS: ALBUMIN 1.4 G/DL (3.4-5.0); ANION GAP 17 (8-16); BLOOD UREA NITROGEN 61 MG/DL (7-18); BUN/CREATININE RATIO 8.5 (5.4-32.0); CALCIUM 8.4 MG/DL (8.5-10.1); CHLORIDE 99 MMOL/L (99-107); CREATININE 7.21 MG/DL (0.60-1.10); GLUCOSE 186 MG/DL (70-104); POTASSIUM 4.3 MMOL/L (3.5-5.1); SODIUM 136 MMOL/L (135-145); TOTAL CARBON DIOXIDE 20.1 MMOL/L (24-32); eGFR 7 ML/MIN
[2017-06-12] MEDS ORDERED: heparin 1,000unit/ml 10ml vial 10 ML IV ONE (08:00)
[2017-06-12] MEDS ORDERED: heparin 1,000 units/ml 10ml inj HE ONE ×2 (08:00)
[2017-06-12] MEDS ORDERED: epoetin 20,000 units/ml inj IV ONE (08:00)
[2017-06-12] MEDS: K and/or MAG REPLACEMENT MC SCH (08:00)
[2017-06-12] MEDS ORDERED: normal saline 1000ml 250 ML IV PRN (08:00)
[2017-06-12] MEDS: pantoprazole 40 MG vial IV SCH (08:26)
[2017-06-12] MEDS: lactobacillus rhamnosus 10,000 MMU CELLS/CAPSULE PO SCH ×2 (08:26→19:55)
[2017-06-12] MEDS: heparin, porcine 5000 units/ml vial SQ SCH ×2 (08:26→19:55)
[2017-06-13] MEDS: acetaminophen 325mg tablet PO PRN ×3 (00:44→22:09)
[2017-06-13 02:00] VITALS: BP 127/64
[2017-06-13] MEDS: ipratropium/albuterol 3ml nebule NEB SCH ×4 (03:04→20:43)
[2017-06-13 06:00] VITALS: BP 124/62
[2017-06-13 06:24] LABS: BASOPHILS % (AUTO) 0.1 % (0-1); EOSINOPHILS # (AUTO) 0.1 X10'3 (0-0.9); EOSINOPHILS % (AUTO) 0.6 % (0-6); HEMOGLOBIN 9.4 g/dl (14.0-17.9); LYMPHOCYTES # (AUTO) 0.8 X10'3 (1.1-4.8); LYMPHOCYTES % (AUTO) 4.6 % (21-51); MEAN CORPUSCULAR HGB CONC 33.7 % (33.0-36.5); MONOCYTES # (AUTO) 1.7 X10'3 (0-0.9); MONOCYTES % (AUTO) 10.1 % (2-12); NEUTROPHILS # (AUTO) 14.2 X10'3 (1.8-7.7); NEUTROPHILS % (AUTO) 84.6 % (42-75); PLATELET COUNT 900 X10'3 (140-440); RED BLOOD COUNT 3.26 X10'6 (4.70-6.10); RED CELL DISTRIBUTION WIDTH 15.4 % (11.5-14.5); WHITE BLOOD COUNT 16.7 X10'3 (4.5-11.0)
[2017-06-13 06:36] LABS: ALBUMIN 1.5 G/DL (3.4-5.0); ANION GAP 16 (8-16); BLOOD UREA NITROGEN 40 MG/DL (7-18); BUN/CREATININE RATIO 7.4 (5.4-32.0); CALCIUM 8.4 MG/DL (8.5-10.1); CHLORIDE 98 MMOL/L (99-107); CREATININE 5.37 MG/DL (0.60-1.10); GLUCOSE 199 MG/DL (70-104); POTASSIUM 4.2 MMOL/L (3.5-5.1); SODIUM 135 MMOL/L (135-145); TOTAL CARBON DIOXIDE 21.4 MMOL/L (24-32); eGFR 10 ML/MIN
[2017-06-13 07:05] LABS: TOTAL CELLS COUNTED 100
[2017-06-13 07:06] LABS: ANISOCYTOSIS 1+; PLATELET ESTIMATE INCREASED; POLYCHROMASIA 1+; TOXIC GRANULATION 3+
[2017-06-13] MEDS: lactobacillus rhamnosus 10,000 MMU CELLS/CAPSULE PO SCH ×2 (07:37→19:17)
[2017-06-13] MEDS: heparin, porcine 5000 units/ml vial SQ SCH ×2 (07:37→19:17)
[2017-06-13] MEDS: K and/or MAG REPLACEMENT MC SCH (08:00)
[2017-06-13 11:00] VITALS: BP 138/65
[2017-06-13 15:00] VITALS: BP 138/69
[2017-06-13 18:00] VITALS: BP 128/62
[2017-06-13 22:00] VITALS: BP 131/68
[2017-06-14] MEDS ORDERED: temazepam 15mg capsule PO ONE (00:25)
[2017-06-14 02:00] VITALS: BP 127/65
[2017-06-14] MEDS: ipratropium/albuterol 3ml nebule NEB SCH ×4 (03:00→21:41)
[2017-06-14 06:00] VITALS: BP 127/73
[2017-06-14] MEDS: K and/or MAG REPLACEMENT MC SCH (08:00)
[2017-06-14] MEDS: heparin, porcine 5000 units/ml vial SQ SCH ×2 (08:35→20:28)
[2017-06-14] MEDS: lactobacillus rhamnosus 10,000 MMU CELLS/CAPSULE PO SCH ×2 (08:35→20:27)
[2017-06-14 11:00] VITALS: BP 116/69
[2017-06-14] MEDS ORDERED: MESSAGE TO PHARMACY PO ONE (11:40)
[2017-06-14] MEDS ORDERED: dextrose ORAL solution 15 GM/59 ML bottle PO PRN ×2 (11:40)
[2017-06-14] MEDS ORDERED: glucagon, human recombinant 1mg kit SUBCUT PRN (11:40)
[2017-06-14] MEDS ORDERED: dextrose 50%-water 50ml dispensing syringe IV PRN ×2 (11:40)
[2017-06-14] MEDS: insulin Lispro (HumaLOG) vial - multi-dose SQ SCH ×2 (12:55→20:23)
[2017-06-14 15:00] VITALS: BP 119/71
[2017-06-14 18:00] VITALS: BP 131/63
[2017-06-14] MEDS: insulin glargine (Lantus) pen - multi-dose SQ SCH (20:24)
[2017-06-14] MEDS: temazepam 15mg capsule PO PRN (20:27)
[2017-06-14 22:00] VITALS: BP 119/70
[2017-06-15 02:00] VITALS: BP 121/62
[2017-06-15] MEDS: ipratropium/albuterol 3ml nebule NEB SCH ×4 (04:43→20:41)
[2017-06-15] MEDS: acetaminophen 325mg tablet PO PRN (04:58)
[2017-06-15 06:00] VITALS: BP 132/75
[2017-06-15 06:02] LABS: BASOPHILS % (AUTO) 0 % (0-1); EOSINOPHILS # (AUTO) 0.4 X10'3 (0-0.9); EOSINOPHILS % (AUTO) 2.1 % (0-6); HEMATOCRIT 28.5 % (42.0-52.0); HEMOGLOBIN 9.9 g/dl (14.0-17.9); LYMPHOCYTES # (AUTO) 0.4 X10'3 (1.1-4.8); LYMPHOCYTES % (AUTO) 2.2 % (21-51); MEAN CORPUSCULAR HEMOGLOBIN 29.4 PG (27.0-31.0); MEAN CORPUSCULAR HGB CONC 34.6 % (33.0-36.5); MEAN PLATELET VOLUME 7.6 FL (7.4-10.4); MONOCYTES # (AUTO) 1.7 X10'3 (0-0.9); NEUTROPHILS # (AUTO) 15.9 X10'3 (1.8-7.7); NEUTROPHILS % (AUTO) 86.7 % (42-75); PLATELET COUNT 934 X10'3 (140-440); RED BLOOD COUNT 3.36 X10'6 (4.70-6.10); RED CELL DISTRIBUTION WIDTH 15.3 % (11.5-14.5); WHITE BLOOD COUNT 18.4 X10'3 (4.5-11.0)
[2017-06-15] MEDS ORDERED: epoetin 20,000 units/ml inj IV ONE (08:00)
[2017-06-15] MEDS ORDERED: normal saline 1000ml 250 ML IV PRN (08:00)
[2017-06-15] MEDS ORDERED: heparin 1,000unit/ml 10ml vial 10 ML IV ONE (08:00)
[2017-06-15] MEDS ORDERED: heparin 1,000 units/ml 10ml inj HE ONE ×2 (08:00)
[2017-06-15] MEDS: K and/or MAG REPLACEMENT MC SCH (08:00)
[2017-06-15] MEDS: heparin, porcine 5000 units/ml vial SQ SCH ×2 (08:26→19:54)
[2017-06-15] MEDS: lactobacillus rhamnosus 10,000 MMU CELLS/CAPSULE PO SCH ×2 (08:26→19:55)
[2017-06-15] MEDS: insulin Lispro (HumaLOG) vial - multi-dose SQ SCH ×2 (08:32→13:15)
[2017-06-15 11:00] VITALS: BP 103/52
[2017-06-15 15:00] VITALS: BP 116/63
[2017-06-15] MEDS ORDERED: magnesium 4gm in 100ml NS 100 ML IV PRN (16:05)
[2017-06-15] MEDS ORDERED: fat emulsion IV 181.82 ML, MVI, adult No.4 with vit. K 4.55 ML, Trace element-5 inj. 0.... IV SCH ×4 (16:05)
[2017-06-15] MEDS ORDERED: magnesium 2GM in 50ml NS 50 ML IV PRN (16:05)
[2017-06-15] MEDS ORDERED: magnesium Cl slow-release 64mg tablet PO PRN (16:05)
[2017-06-15 16:57] LABS: ALANINE AMINOTRANSFERASE 16 U/L (12-78); ALBUMIN 1.6 G/DL (3.4-5.0); ALBUMIN/GLOBULIN RATIO 0.3 (1.1-1.5); ALKALINE PHOSPHATASE 117 IU/L (46-116); ANION GAP 15 (8-16); ASPARTATE AMINO TRANSFERASE 15 U/L (10-37); BILIRUBIN,TOTAL 0.6 MG/DL (0.1-1.0); BLOOD UREA NITROGEN 48 MG/DL (7-18); BUN/CREATININE RATIO 7.5 (5.4-32.0); CALCIUM 8.6 MG/DL (8.5-10.1); CHLORIDE 96 MMOL/L (99-107); CREATININE 6.41 MG/DL (0.60-1.10); GLUCOSE 133 MG/DL (70-104); MAGNESIUM 2.1 MG/DL (1.5-2.4); PHOSPHORUS 5.6 MG/DL (2.3-4.5); POTASSIUM 4.2 MMOL/L (3.5-5.1); PREALBUMIN 10.8 MG/DL (19-36); SODIUM 136 MMOL/L (135-145); TOTAL CARBON DIOXIDE 24.9 MMOL/L (24-32); TOTAL PROTEIN 7.7 G/DL (6.4-8.2); TRIGLYCERIDES 254 MG/DL (20-135); eGFR 8 ML/MIN
[2017-06-15] MEDS ORDERED: potassium Cl 40MEQ/NS 500ml 500 ML IV PRN ×2 (17:00)
[2017-06-15 19:00] VITALS: BP 101/53
[2017-06-15] MEDS ORDERED: Dextrose 10%-water IV solution 1,000 ML IV PRN ×2 (20:00)
[2017-06-15] MEDS: fat emulsion IV 100 ML, MVI, adult No.4 with vit. K 5 ML, Trace element-5 inj. 0.5 ML i... IV SCH ×4 (20:48)
[2017-06-15] MEDS: temazepam 15mg capsule PO PRN (21:17)
[2017-06-15] MEDS: insulin glargine (Lantus) pen - multi-dose SQ SCH (21:36)
[2017-06-15 23:00] VITALS: BP 101/53
[2017-06-16] VITALS (13 sets, daily range): BP systolic 100–150; BP diastolic 52–70
[2017-06-16] MEDS: ipratropium/albuterol 3ml nebule NEB SCH ×3 (03:51→20:06)
[2017-06-16] MEDS: insulin regular, human vial - multi-dose SQ SCH ×4 (04:01→20:54)
[2017-06-16] MEDS ORDERED: nitroGLYCERIN 0.4mg SUBLingual tab SL ONE (04:23)
[2017-06-16] MEDS ORDERED: nitroGLYCERIN 0.4mg SUBLingual tab SL PRN (04:25)
[2017-06-16] MEDS ORDERED: aspirin 325mg tablet PO ONE (04:30)
[2017-06-16] MEDS ORDERED: aspirin 81mg tab.chew PO ONE (04:35)
[2017-06-16 05:37] LABS: ALANINE AMINOTRANSFERASE 14 U/L (12-78); ALBUMIN 1.4 G/DL (3.4-5.0); ALBUMIN/GLOBULIN RATIO 0.3 (1.1-1.5); ALKALINE PHOSPHATASE 102 IU/L (46-116); ANION GAP 17 (8-16); ASPARTATE AMINO TRANSFERASE 17 U/L (10-37); BILIRUBIN,TOTAL 0.6 MG/DL (0.1-1.0); BLOOD UREA NITROGEN 44 MG/DL (7-18); BUN/CREATININE RATIO 6.8 (5.4-32.0); CALCIUM 8.4 MG/DL (8.5-10.1); CHLORIDE 96 MMOL/L (99-107); CREATININE 6.44 MG/DL (0.60-1.10); GLUCOSE 245 MG/DL (70-104); MAGNESIUM 2.2 MG/DL (1.5-2.4); PHOSPHORUS 6.8 MG/DL (2.3-4.5); POTASSIUM 4.8 MMOL/L (3.5-5.1); SODIUM 135 MMOL/L (135-145); eGFR 8 ML/MIN
[2017-06-16 06:07] LABS: INR 1.3 INR; PROTHROMBIN TIME 13.5 SECONDS (9.0-12.0)
[2017-06-16 06:25] LABS: TROPONIN I < 0.04 NG/ML (0.0-0.05)
[2017-06-16] MEDS: lactobacillus rhamnosus 10,000 MMU CELLS/CAPSULE PO SCH ×2 (07:16→20:00)
[2017-06-16] MEDS: K and/or MAG REPLACEMENT MC SCH ×2 (07:18→07:19)
[2017-06-16] MEDS: heparin, porcine 5000 units/ml vial SQ SCH ×2 (08:15→20:57)
[2017-06-16 10:08] LABS: BASOPHILS % (AUTO) 0.1 % (0-1); EOSINOPHILS # (AUTO) 0.1 X10'3 (0-0.9); EOSINOPHILS % (AUTO) 0.7 % (0-6); HEMATOCRIT 27.1 % (42.0-52.0); HEMOGLOBIN 9.3 g/dl (14.0-17.9); LYMPHOCYTES # (AUTO) 0.6 X10'3 (1.1-4.8); LYMPHOCYTES % (AUTO) 3.3 % (21-51); MEAN CORPUSCULAR HEMOGLOBIN 29.3 PG (27.0-31.0); MEAN CORPUSCULAR HGB CONC 34.2 % (33.0-36.5); MEAN CORPUSCULAR VOLUME 85.7 FL (78-98); MEAN PLATELET VOLUME 7.4 FL (7.4-10.4); MONOCYTES # (AUTO) 1.7 X10'3 (0-0.9); MONOCYTES % (AUTO) 9.1 % (2-12); NEUTROPHILS % (AUTO) 86.8 % (42-75); PLATELET COUNT 903 X10'3 (140-440); RED BLOOD COUNT 3.16 X10'6 (4.70-6.10); RED CELL DISTRIBUTION WIDTH 15.6 % (11.5-14.5); WHITE BLOOD COUNT 18.5 X10'3 (4.5-11.0)
[2017-06-16 10:27] LABS: ALANINE AMINOTRANSFERASE 15 U/L (12-78); ALBUMIN 1.4 G/DL (3.4-5.0); ALBUMIN/GLOBULIN RATIO 0.3 (1.1-1.5); ALKALINE PHOSPHATASE 106 IU/L (46-116); AMYLASE 26 U/L (25-115); ANION GAP 15 (8-16); ASPARTATE AMINO TRANSFERASE 15 U/L (10-37); BILIRUBIN,TOTAL 0.5 MG/DL (0.1-1.0); BLOOD UREA NITROGEN 51 MG/DL (7-18); BUN/CREATININE RATIO 7.7 (5.4-32.0); CALCIUM 8.5 MG/DL (8.5-10.1); CHLORIDE 97 MMOL/L (99-107); CREATININE 6.65 MG/DL (0.60-1.10); GLUCOSE 292 MG/DL (70-104); POTASSIUM 4.8 MMOL/L (3.5-5.1); SODIUM 133 MMOL/L (135-145); TOTAL CARBON DIOXIDE 20.9 MMOL/L (24-32); eGFR 8 ML/MIN
[2017-06-16 12:12] LABS: LIPASE 69 U/L (73-393)
[2017-06-16] MEDS ORDERED: cefepime 1GM/NS ADD-VANTAGE 100 ML IV SCH (12:25)
[2017-06-16] MEDS ORDERED: vancomycin/NS 1 GM ADD-VANTAGE 250 ML IV ONE (12:25)
[2017-06-16] MEDS: metroNIDAZOLE-Flagyl 500mg/NS 100 ML IV SCH ×2 (12:25→20:58)
[2017-06-16 12:47] LABS: CREATINE KINASE 16 U/L (39-308); PHOSPHORUS 7.2 MG/DL (2.3-4.5)
[2017-06-16] MEDS ORDERED: cefepime inj. 1 GM in dextrose 5%-water 50ml 50 ML IV ONE (13:05)
[2017-06-16 13:38] LABS: PREALBUMIN 9.2 MG/DL (19-36)
[2017-06-16] MEDS: albumin (human) 25% 100 ML IV solution IV SCH (15:42)
[2017-06-16] MEDS: fat emulsion IV 100 ML, MVI, adult No.4 with vit. K 5 ML, Trace element-5 inj. 0.5 ML i... IV SCH ×4 (19:00)
[2017-06-16] MEDS: insulin glargine (Lantus) pen - multi-dose SQ SCH (20:56)
[2017-06-16 23:46] LABS: ANION GAP 14 (8-16); BLOOD UREA NITROGEN 62 MG/DL (7-18); BUN/CREATININE RATIO 8.4 (5.4-32.0); CALCIUM 8.4 MG/DL (8.5-10.1); CHLORIDE 95 MMOL/L (99-107); CREATININE 7.35 MG/DL (0.60-1.10); POTASSIUM 4.2 MMOL/L (3.5-5.1); SODIUM 133 MMOL/L (135-145); TOTAL CARBON DIOXIDE 23.9 MMOL/L (24-32); eGFR 7 ML/MIN
[2017-06-16 23:47] LABS: GLUCOSE 502 MG/DL (70-104)
[2017-06-17] VITALS (24 sets, daily range): BP systolic 96–153; BP diastolic 55–82
[2017-06-17] MEDS ORDERED: dextrose 50%-water 50ml dispensing syringe IV PRN (00:10)
[2017-06-17] MEDS ORDERED: insulin regular, human vial - multi-dose ONE ×2 (00:30→22:36)
[2017-06-17] MEDS: albumin (human) 25% 100 ML IV solution IV SCH ×3 (00:31→16:14)
[2017-06-17] MEDS ORDERED: insulin R INFUSION 1 ML IV ONE (00:33)
[2017-06-17] MEDS: insulin regular, human 100 UNITS in normal saline 100ml IV soln 99 ML IV SCH ×16 (00:51→23:06)
[2017-06-17 02:25] LABS: BASOPHILS % (AUTO) 0 % (0-1); EOSINOPHILS # (AUTO) 0.4 X10'3 (0-0.9); EOSINOPHILS % (AUTO) 2.2 % (0-6); HEMATOCRIT 24.1 % (42.0-52.0); HEMOGLOBIN 8.1 g/dl (14.0-17.9); LYMPHOCYTES # (AUTO) 0.3 X10'3 (1.1-4.8); MEAN CORPUSCULAR HGB CONC 33.7 % (33.0-36.5); MEAN PLATELET VOLUME 7.1 FL (7.4-10.4); MONOCYTES # (AUTO) 0.8 X10'3 (0-0.9); MONOCYTES % (AUTO) 5.2 % (2-12); NEUTROPHILS # (AUTO) 14.7 X10'3 (1.8-7.7); NEUTROPHILS % (AUTO) 90.6 % (42-75); PLATELET COUNT 763 X10'3 (140-440); RED BLOOD COUNT 2.81 X10'6 (4.70-6.10); RED CELL DISTRIBUTION WIDTH 15.6 % (11.5-14.5); WHITE BLOOD COUNT 16.2 X10'3 (4.5-11.0)
[2017-06-17 02:52] LABS: ALANINE AMINOTRANSFERASE 14 U/L (12-78); ALBUMIN 2.4 G/DL (3.4-5.0); ALBUMIN/GLOBULIN RATIO 0.5 (1.1-1.5); ALKALINE PHOSPHATASE 74 IU/L (46-116); ANION GAP 15 (8-16); ASPARTATE AMINO TRANSFERASE 8 U/L (10-37); BILIRUBIN,TOTAL 0.5 MG/DL (0.1-1.0); BLOOD UREA NITROGEN 67 MG/DL (7-18); CALCIUM 8.6 MG/DL (8.5-10.1); CHLORIDE 94 MMOL/L (99-107); CREATININE 7.41 MG/DL (0.60-1.10); GLUCOSE 400 MG/DL (70-104); MAGNESIUM 2.2 MG/DL (1.5-2.4); PHOSPHORUS 6.1 MG/DL (2.3-4.5); POTASSIUM 4.2 MMOL/L (3.5-5.1); SODIUM 132 MMOL/L (135-145); TOTAL CARBON DIOXIDE 22.9 MMOL/L (24-32); TOTAL PROTEIN 7.1 G/DL (6.4-8.2); eGFR 7 ML/MIN
[2017-06-17] MEDS: ipratropium/albuterol 3ml nebule NEB SCH ×4 (03:37→21:10)
[2017-06-17] MEDS ORDERED: amiodarone/D5 360MG/200ML BAG 200 ML IV SCH (04:13)
[2017-06-17] MEDS ORDERED: amiodarone 150mg/dext, iso-os 100 ML IV ONE (04:15)
[2017-06-17] MEDS: fat emulsion IV 100 ML, MVI, adult No.4 with vit. K 5 ML, Trace element-5 inj. 0.5 ML i... IV SCH ×12 (04:21→23:07)
[2017-06-17] MEDS ORDERED: amiodarone/D5 450MG/250ML BAG 250 ML IV ONE (04:25)
[2017-06-17 06:20] LABS: TOTAL CELLS COUNTED 100
[2017-06-17 06:22] LABS: ANISOCYTOSIS 1+; PLATELET ESTIMATE INCREASED
[2017-06-17 06:25] LABS: POIKILOCYTOSIS 1+; POLYCHROMASIA 1+; TOXIC GRANULATION 1+
[2017-06-17] MEDS: heparin, porcine 5000 units/ml vial SQ SCH ×2 (07:18→20:21)
[2017-06-17] MEDS: K and/or MAG REPLACEMENT MC SCH (07:45)
[2017-06-17 07:55] LABS: ABG BASE EXCESS -4.4 mmol/L (-2.0-3.0); ABG HCO3 20.7 mmol/L (22.0-26.0); ABG OXYGEN SATURATION 96.1 % (95-98); ABG PCO2 (T) 37.6 mmHg (35.0-48.0); ABG PH (T) 7.358 (7.350-7.450); ABG PO2 (T) 86.7 mmHg (83-108); FCOHb 0.3 % (0.5-1.5); FLOW 6 L/min; FMetHb 0.3 % (0.3-1.12); FO2Hb 95.5 % (94-100); TOTAL HEMOGLOBIN 9.1 G/dl (14.0-18.0)
[2017-06-17] MEDS: lactobacillus rhamnosus 10,000 MMU CELLS/CAPSULE PO SCH ×2 (08:00→20:00)
[2017-06-17] MEDS: metroNIDAZOLE-Flagyl 500mg/NS 100 ML IV SCH ×2 (08:00→20:20)
[2017-06-17] MEDS ORDERED: normal saline 1000ml 250 ML IV PRN (08:26)
[2017-06-17] MEDS ORDERED: heparin 1,000unit/ml 10ml vial 10 ML IV ONE (08:26)
[2017-06-17] MEDS ORDERED: epoetin 20,000 units/ml inj IV ONE (08:30)
[2017-06-17] MEDS ORDERED: heparin 1,000 units/ml 10ml inj HE ONE ×2 (08:30)
[2017-06-17 13:27] LABS: HBSAG SCREEN Negative (Negative)
[2017-06-17] MEDS ORDERED: etomidate 2mg/ml inj. ONE (14:10)
[2017-06-17] MEDS: morphine/NS 5 mg/ml CADD 50 ML IV SCH ×3 (15:20→17:57)
[2017-06-17] MEDS ORDERED: diltiazem 5mg/ml 5ml inj. IV ONE (15:30)
[2017-06-17] MEDS: pantoprazole 40 MG vial IV SCH (20:21)
[2017-06-17] MEDS: insulin glargine (Lantus) pen - multi-dose SQ SCH (21:00)
[2017-06-17] MEDS: cefepime inj. 1 GM in dextrose 5%-water 50ml 50 ML IV SCH (22:19)
[2017-06-17] MEDS: diltiazem-NS 100mg/100ml 100 ML IV SCH (22:42)
[2017-06-18] VITALS (29 sets, daily range): BP systolic 87–165; BP diastolic 48–76
[2017-06-18] MEDS: albumin (human) 25% 100 ML IV solution IV SCH ×3 (01:11→16:00)
[2017-06-18 01:27] LABS: BASOPHILS % (AUTO) 0.1 % (0-1); EOSINOPHILS # (AUTO) 0.3 X10'3 (0-0.9); EOSINOPHILS % (AUTO) 1.7 % (0-6); HEMATOCRIT 23.2 % (42.0-52.0); HEMOGLOBIN 7.8 g/dl (14.0-17.9); LYMPHOCYTES # (AUTO) 0.5 X10'3 (1.1-4.8); LYMPHOCYTES % (AUTO) 2.6 % (21-51); MEAN CORPUSCULAR HGB CONC 33.9 % (33.0-36.5); MEAN CORPUSCULAR VOLUME 85.8 FL (78-98); MEAN PLATELET VOLUME 7.3 FL (7.4-10.4); MONOCYTES # (AUTO) 1.5 X10'3 (0-0.9); MONOCYTES % (AUTO) 7.6 % (2-12); NEUTROPHILS # (AUTO) 16.8 X10'3 (1.8-7.7); PLATELET COUNT 673 X10'3 (140-440); RED CELL DISTRIBUTION WIDTH 14.4 % (11.5-14.5); WHITE BLOOD COUNT 19.1 X10'3 (4.5-11.0)
[2017-06-18 01:45] LABS: ALANINE AMINOTRANSFERASE 13 U/L (12-78); ALBUMIN 2.9 G/DL (3.4-5.0); ALBUMIN/GLOBULIN RATIO 0.7 (1.1-1.5); ALKALINE PHOSPHATASE 69 IU/L (46-116); ANION GAP 11 (8-16); ASPARTATE AMINO TRANSFERASE 10 U/L (10-37); BILIRUBIN,TOTAL 0.5 MG/DL (0.1-1.0); BLOOD UREA NITROGEN 52 MG/DL (7-18); BUN/CREATININE RATIO 10.2 (5.4-32.0); CALCIUM 8.7 MG/DL (8.5-10.1); CHLORIDE 96 MMOL/L (99-107); CREATININE 5.09 MG/DL (0.60-1.10); GLUCOSE 159 MG/DL (70-104); MAGNESIUM 1.9 MG/DL (1.5-2.4); PHOSPHORUS 3.9 MG/DL (2.3-4.5); POTASSIUM 3.8 MMOL/L (3.5-5.1); PREALBUMIN 11.3 MG/DL (19-36); SODIUM 132 MMOL/L (135-145); TOTAL CARBON DIOXIDE 24.9 MMOL/L (24-32); TOTAL PROTEIN 7.1 G/DL (6.4-8.2); TRIGLYCERIDES 137 MG/DL (20-135); eGFR 11 ML/MIN
[2017-06-18 02:20] LABS: ANISOCYTOSIS 1+; PLATELET ESTIMATE INCREASED; POIKILOCYTOSIS 1+; TOTAL CELLS COUNTED 100; TOXIC GRANULATION 1+
[2017-06-18 02:21] LABS: POLYCHROMASIA 1+
[2017-06-18] MEDS: insulin regular, human 100 UNITS in normal saline 100ml IV soln 99 ML IV SCH ×10 (02:56→23:07)
[2017-06-18] MEDS: ipratropium/albuterol 3ml nebule NEB SCH ×4 (03:14→21:03)
[2017-06-18] MEDS ORDERED: insulin R INFUSION 1 ML IV ONE (07:15)
[2017-06-18] MEDS ORDERED: diltiazem-NS 100mg/100ml 100 ML IV ONE (07:16)
[2017-06-18] MEDS: metroNIDAZOLE-Flagyl 500mg/NS 100 ML IV SCH ×2 (07:49→20:38)
[2017-06-18] MEDS: pantoprazole 40 MG vial IV SCH ×2 (07:50→20:37)
[2017-06-18] MEDS: heparin, porcine 5000 units/ml vial SQ SCH ×2 (07:50→20:37)
[2017-06-18] MEDS: K and/or MAG REPLACEMENT MC SCH (08:00)
[2017-06-18] MEDS: lactobacillus rhamnosus 10,000 MMU CELLS/CAPSULE PO SCH ×3 (08:00→20:37)
[2017-06-18] MEDS: fat emulsion IV 100 ML, MVI, adult No.4 with vit. K 5 ML, Trace element-5 inj. 0.5 ML i... IV SCH ×12 (08:05→18:39)
[2017-06-18] MEDS ORDERED: midazolam 100mg in NS 100ml 100 ML IV PRN (11:13)
[2017-06-18] MEDS ORDERED: FENTANYL-0.9 % NACL/PF 100 ML IV PRN (11:13)
[2017-06-18] MEDS ORDERED: ipratropium/albuterol 3ml nebule NEB PRN (11:15)
[2017-06-18] MEDS ORDERED: NORepinephrine 8mg/ 250ml NS 250 ML IV ONE (11:16)
[2017-06-18] MEDS: meropenem inj 500 MG in normal saline 100ml IV soln 100 ML IV SCH (12:30)
[2017-06-18] MEDS ORDERED: iohexol 300 MG/1 ML 50ml polymer ONE (13:12)
[2017-06-18] MEDS: midazolam 100mg in NS 100ml 100 ML IV PRN (15:56)
[2017-06-18] MEDS: FENTANYL-0.9 % NACL/PF 100 ML IV PRN ×2 (15:56→20:55)
[2017-06-18] MEDS: diltiazem-NS 100mg/100ml 100 ML IV SCH (19:02)
[2017-06-18] MEDS: cefepime inj. 1 GM in dextrose 5%-water 50ml 50 ML IV SCH (20:38)
[2017-06-18] MEDS: insulin glargine (Lantus) pen - multi-dose SQ SCH (22:21)
[2017-06-19] VITALS (30 sets, daily range): BP systolic 74–114; BP diastolic 45–75
[2017-06-19] MEDS: albumin (human) 25% 100 ML IV solution IV SCH ×4 (00:16→23:16)
[2017-06-19] MEDS: insulin regular, human 100 UNITS in normal saline 100ml IV soln 99 ML IV SCH ×10 (01:00→10:25)
[2017-06-19 02:34] LABS: BASOPHILS % (AUTO) 0 % (0-1); EOSINOPHILS # (AUTO) 0.3 X10'3 (0-0.9); EOSINOPHILS % (AUTO) 1.4 % (0-6); HEMOGLOBIN 7.2 g/dl (14.0-17.9); LYMPHOCYTES # (AUTO) 0.4 X10'3 (1.1-4.8); MEAN CORPUSCULAR HEMOGLOBIN 29.4 PG (27.0-31.0); MEAN CORPUSCULAR HGB CONC 34.2 % (33.0-36.5); MEAN CORPUSCULAR VOLUME 85.9 FL (78-98); MEAN PLATELET VOLUME 7.1 FL (7.4-10.4); MONOCYTES # (AUTO) 1.9 X10'3 (0-0.9); MONOCYTES % (AUTO) 8.6 % (2-12); NEUTROPHILS # (AUTO) 19.1 X10'3 (1.8-7.7); PLATELET COUNT 543 X10'3 (140-440); RED BLOOD COUNT 2.44 X10'6 (4.70-6.10); RED CELL DISTRIBUTION WIDTH 15.3 % (11.5-14.5); WHITE BLOOD COUNT 21.7 X10'3 (4.5-11.0)
[2017-06-19 02:51] LABS: ALANINE AMINOTRANSFERASE 16 U/L (12-78); ALBUMIN 3.4 G/DL (3.4-5.0); ALKALINE PHOSPHATASE 80 IU/L (46-116); ANION GAP 15 (8-16); ASPARTATE AMINO TRANSFERASE 11 U/L (10-37); BILIRUBIN,TOTAL 0.7 MG/DL (0.1-1.0); BLOOD UREA NITROGEN 78 MG/DL (7-18); BUN/CREATININE RATIO 12.6 (5.4-32.0); CALCIUM 8.3 MG/DL (8.5-10.1); CHLORIDE 94 MMOL/L (99-107); CREATININE 6.18 MG/DL (0.60-1.10); GLUCOSE 104 MG/DL (70-104); MAGNESIUM 1.6 MG/DL (1.5-2.4); PHOSPHORUS 3.1 MG/DL (2.3-4.5); POTASSIUM 3.8 MMOL/L (3.5-5.1); SODIUM 129 MMOL/L (135-145); TOTAL PROTEIN 6.8 G/DL (6.4-8.2); eGFR 9 ML/MIN
[2017-06-19 03:06] LABS: ABG BASE EXCESS -7.7 mmol/L (-2.0-3.0); ABG HCO3 17.8 mmol/L (22.0-26.0); ABG OXYGEN SATURATION 94.2 % (95-98); ABG PCO2 (T) 35.7 mmHg (35.0-48.0); ABG PH (T) 7.315 (7.350-7.450); ABG PO2 (T) 72.4 mmHg (83-108); ALLEN'S TEST Positive; FCOHb 0.3 % (0.5-1.5); FMetHb 0.3 % (0.3-1.12); FO2Hb 93.6 % (94-100); MINUTE VOLUME 12 L/min; PEEP 8 cm H2O; RESPIRATORY RATE 14 b/min; RESPIRATORY RATE (OBSERVED) 20 b/min; TIDAL VOLUME 550 mL
[2017-06-19] MEDS: diltiazem-NS 100mg/100ml 100 ML IV SCH ×2 (03:07→19:49)
[2017-06-19] MEDS: midazolam 100mg in NS 100ml 100 ML IV PRN (03:08)
[2017-06-19] MEDS: fat emulsion IV 100 ML, MVI, adult No.4 with vit. K 5 ML, Trace element-5 inj. 0.5 ML i... IV SCH ×4 (03:08)
[2017-06-19] MEDS: FENTANYL-0.9 % NACL/PF 100 ML IV PRN ×2 (03:13→18:22)
[2017-06-19 03:19] LABS: ANISOCYTOSIS FEW; PLATELET ESTIMATE INCREASED; POIKILOCYTOSIS FEW; POLYCHROMASIA FEW; TOTAL CELLS COUNTED 100; TOXIC GRANULATION 3+
[2017-06-19 03:20] LABS: TOXIC VACUOLATION FEW
[2017-06-19 03:21] LABS: LARGE PLATELETS FEW
[2017-06-19 03:22] LABS: ELLIPTOCYTES FEW; HYPOCHROMASIA 1+
[2017-06-19] MEDS: ipratropium/albuterol 3ml nebule NEB SCH ×4 (03:25→20:09)
[2017-06-19] MEDS: heparin, porcine 5000 units/ml vial SQ SCH ×2 (07:50→20:16)
[2017-06-19] MEDS: lactobacillus rhamnosus 10,000 MMU CELLS/CAPSULE PO SCH ×3 (07:51→20:16)
[2017-06-19] MEDS: pantoprazole 40 MG vial IV SCH ×2 (07:51→20:16)
[2017-06-19] MEDS: meropenem inj 500 MG in normal saline 100ml IV soln 100 ML IV SCH (07:52)
[2017-06-19] MEDS: metroNIDAZOLE-Flagyl 500mg/NS 100 ML IV SCH (07:53)
[2017-06-19] MEDS ORDERED: normal saline 1000ml 250 ML IV PRN (08:30)
[2017-06-19] MEDS ORDERED: heparin 1,000unit/ml 10ml vial 10 ML IV ONE (08:30)
[2017-06-19] MEDS ORDERED: epoetin 20,000 units/ml inj IV ONE (08:30)
[2017-06-19] MEDS ORDERED: normal saline 1000ml 100 ML IV PRN (08:30)
[2017-06-19] MEDS ORDERED: heparin 1,000 units/ml 10ml inj HE ONE ×2 (08:35)
[2017-06-19] MEDS: methylnaltrexone br 12mg/0.6ml inj***SubQ only SQ SCH (12:06)
[2017-06-19] MEDS: mineral oil/petrolatum ophthal oint EACHEYE SCH ×2 (14:00→20:16)
[2017-06-19] MEDS: NORepinephrine 8mg/ 250ml NS 250 ML IV SCH (14:11)
[2017-06-19 17:05] LABS: OXYGEN SATURATION (MIXED VEN) 57.6 % (60-80); PO2 MIXED VENOUS (TEMP COR) 28.7 mmHg (35-46)
[2017-06-19] MEDS: insulin glargine (Lantus) pen - multi-dose SQ SCH (20:24)
[2017-06-19] MEDS: insulin regular, human vial - multi-dose SQ SCH (20:25)
[2017-06-20] VITALS (24 sets, daily range): BP systolic 84–131; BP diastolic 51–82
[2017-06-20] MEDS: mineral oil/petrolatum ophthal oint EACHEYE SCH ×4 (02:03→21:05)
[2017-06-20] MEDS: insulin regular, human vial - multi-dose SQ SCH ×4 (02:06→20:59)
[2017-06-20] MEDS: NORepinephrine 8mg/ 250ml NS 250 ML IV SCH (02:07)
[2017-06-20 02:23] LABS: BASOPHILS % (AUTO) 0 % (0-1); EOSINOPHILS # (AUTO) 0.4 X10'3 (0-0.9); EOSINOPHILS % (AUTO) 1.3 % (0-6); HEMATOCRIT 27.2 % (42.0-52.0); HEMOGLOBIN 9.1 g/dl (14.0-17.9); LYMPHOCYTES # (AUTO) 0.3 X10'3 (1.1-4.8); LYMPHOCYTES % (AUTO) 1.1 % (21-51); MEAN CORPUSCULAR HEMOGLOBIN 28.8 PG (27.0-31.0); MEAN CORPUSCULAR HGB CONC 33.5 % (33.0-36.5); MEAN PLATELET VOLUME 7.1 FL (7.4-10.4); MONOCYTES # (AUTO) 1.7 X10'3 (0-0.9); MONOCYTES % (AUTO) 6.2 % (2-12); NEUTROPHILS # (AUTO) 25.1 X10'3 (1.8-7.7); NEUTROPHILS % (AUTO) 91.4 % (42-75); PLATELET COUNT 524 X10'3 (140-440); RED BLOOD COUNT 3.17 X10'6 (4.70-6.10); RED CELL DISTRIBUTION WIDTH 15.9 % (11.5-14.5)
[2017-06-20 02:24] LABS: WHITE BLOOD COUNT 27.4 X10'3 (4.5-11.0)
[2017-06-20 02:41] LABS: ALBUMIN 3.7 G/DL (3.4-5.0); ALKALINE PHOSPHATASE 73 IU/L (46-116); ANION GAP 17 (8-16); ASPARTATE AMINO TRANSFERASE 13 U/L (10-37); BILIRUBIN,TOTAL 1.2 MG/DL (0.1-1.0); BLOOD UREA NITROGEN 57 MG/DL (7-18); BUN/CREATININE RATIO 12.2 (5.4-32.0); CALCIUM 8.8 MG/DL (8.5-10.1); CHLORIDE 94 MMOL/L (99-107); CREATININE 4.68 MG/DL (0.60-1.10); GLUCOSE 329 MG/DL (70-104); MAGNESIUM 1.7 MG/DL (1.5-2.4); PHOSPHORUS 5.3 MG/DL (2.3-4.5); POTASSIUM 4.9 MMOL/L (3.5-5.1); SODIUM 132 MMOL/L (135-145); TOTAL CARBON DIOXIDE 21.5 MMOL/L (24-32); TOTAL PROTEIN 7.3 G/DL (6.4-8.2); eGFR 12 ML/MIN
[2017-06-20 03:15] LABS: ABG BASE EXCESS -6.2 mmol/L (-2.0-3.0); ABG OXYGEN SATURATION 93.9 % (95-98); ABG PCO2 (T) 41.9 mmHg (35.0-48.0); ABG PH (T) 7.294 (7.350-7.450); ABG PO2 (T) 71.1 mmHg (83-108); ALLEN'S TEST Positive; FCOHb 0.3 % (0.5-1.5); FMetHb 0.1 % (0.3-1.12); FO2Hb 93.5 % (94-100); PATIENT TEMPERATURE 36.7; PEEP 5 cm H2O; RESPIRATORY RATE 14 b/min; RESPIRATORY RATE (OBSERVED) 15 b/min; TIDAL VOLUME 650 mL; TOTAL HEMOGLOBIN 10.3 G/dl (14.0-18.0)
[2017-06-20 03:15] LABS: ALANINE AMINOTRANSFERASE 13 U/L (12-78)
[2017-06-20] MEDS: ipratropium/albuterol 3ml nebule NEB SCH ×4 (03:17→21:07)
[2017-06-20] MEDS: diltiazem-NS 100mg/100ml 100 ML IV SCH (05:44)
[2017-06-20 07:05] LABS: TOTAL CELLS COUNTED 100
[2017-06-20 07:06] LABS: ANISOCYTOSIS 1+; HYPOCHROMASIA 1+; LARGE PLATELETS FEW; PLATELET ESTIMATE INCREASED; POLYCHROMASIA 1+; STOMATOCYTES 1+; TOXIC GRANULATION 3+
[2017-06-20] MEDS ORDERED: normal saline 1000ml 250 ML IV PRN (08:00)
[2017-06-20] MEDS ORDERED: heparin 1,000unit/ml 10ml vial 10 ML IV ONE (08:00)
[2017-06-20] MEDS: lactobacillus rhamnosus 10,000 MMU CELLS/CAPSULE PO SCH ×2 (08:00→21:04)
[2017-06-20] MEDS ORDERED: heparin 1,000 units/ml 10ml inj HE ONE ×2 (08:00)
[2017-06-20] MEDS: pantoprazole 40 MG vial IV SCH ×2 (09:38→21:04)
[2017-06-20] MEDS: heparin, porcine 5000 units/ml vial SQ SCH ×2 (09:38→21:04)
[2017-06-20] MEDS: albumin (human) 25% 100 ML IV solution IV SCH ×2 (09:40→17:07)
[2017-06-20] MEDS: meropenem inj 500 MG in normal saline 100ml IV soln 100 ML IV SCH (09:42)
[2017-06-20] MEDS ORDERED: diatrozoate meglu/diatrozoate sod (37% iodine) 120ML oral solution PO ONE (16:15)
[2017-06-20] MEDS: diatr meglu/diatrizoate 30ml oral sol.-(3 dose) bottle PO SCH ×3 (16:41→19:42)
[2017-06-20] MEDS: insulin glargine (Lantus) pen - multi-dose SQ SCH (21:00)
[2017-06-20] MEDS ORDERED: insulin R INFUSION 1 ML IV ONE (22:10)
[2017-06-21] VITALS (24 sets, daily range): BP systolic 83–120; BP diastolic 43–72
[2017-06-21] MEDS: albumin (human) 25% 100 ML IV solution IV SCH ×2 (00:22→07:25)
[2017-06-21] MEDS: mineral oil/petrolatum ophthal oint EACHEYE SCH ×4 (01:13→20:16)
[2017-06-21] MEDS: FENTANYL-0.9 % NACL/PF 100 ML IV PRN ×2 (01:14→23:21)
[2017-06-21] MEDS: insulin regular, human 100 UNITS in normal saline 100ml IV soln 99 ML IV SCH ×16 (02:28→20:15)
[2017-06-21 02:36] LABS: BASOPHILS % (AUTO) 0 % (0-1); EOSINOPHILS # (AUTO) 0.2 X10'3 (0-0.9); EOSINOPHILS % (AUTO) 0.9 % (0-6); HEMATOCRIT 24.5 % (42.0-52.0); HEMOGLOBIN 8.3 g/dl (14.0-17.9); LYMPHOCYTES # (AUTO) 0.2 X10'3 (1.1-4.8); MEAN CORPUSCULAR HEMOGLOBIN 29.3 PG (27.0-31.0); MEAN CORPUSCULAR HGB CONC 33.9 % (33.0-36.5); MEAN CORPUSCULAR VOLUME 86.2 FL (78-98); MEAN PLATELET VOLUME 7.1 FL (7.4-10.4); MONOCYTES # (AUTO) 1.3 X10'3 (0-0.9); MONOCYTES % (AUTO) 6.7 % (2-12); NEUTROPHILS % (AUTO) 91.4 % (42-75); PLATELET COUNT 499 X10'3 (140-440); RED BLOOD COUNT 2.84 X10'6 (4.70-6.10); RED CELL DISTRIBUTION WIDTH 15.6 % (11.5-14.5); WHITE BLOOD COUNT 19.6 X10'3 (4.5-11.0)
[2017-06-21] MEDS: insulin regular, human vial - multi-dose SQ SCH ×5 (02:36→06:00)
[2017-06-21 03:01] LABS: ALANINE AMINOTRANSFERASE 12 U/L (12-78); ALBUMIN 4.3 G/DL (3.4-5.0); ALBUMIN/GLOBULIN RATIO 1.3 (1.1-1.5); ALKALINE PHOSPHATASE 59 IU/L (46-116); ANION GAP 14 (8-16); ASPARTATE AMINO TRANSFERASE 7 U/L (10-37); BILIRUBIN,TOTAL 0.9 MG/DL (0.1-1.0); BLOOD UREA NITROGEN 44 MG/DL (7-18); CALCIUM 9.3 MG/DL (8.5-10.1); CHLORIDE 96 MMOL/L (99-107); CREATININE 3.68 MG/DL (0.60-1.10); GLUCOSE 390 MG/DL (70-104); PHOSPHORUS 4.2 MG/DL (2.3-4.5); POTASSIUM 4.2 MMOL/L (3.5-5.1); SODIUM 135 MMOL/L (135-145); TOTAL CARBON DIOXIDE 25.5 MMOL/L (24-32); TOTAL PROTEIN 7.7 G/DL (6.4-8.2); eGFR 16 ML/MIN
[2017-06-21] MEDS: ipratropium/albuterol 3ml nebule NEB SCH ×4 (03:05→20:53)
[2017-06-21 03:51] LABS: ABG HCO3 23.9 mmol/L (22.0-26.0); ABG OXYGEN SATURATION 93.4 % (95-98); ABG PCO2 (T) 40.8 mmHg (35.0-48.0); ABG PH (T) 7.387 (7.350-7.450); ABG PO2 (T) 70.6 mmHg (83-108); ALLEN'S TEST Positive; FCOHb 0.3 % (0.5-1.5); FMetHb 0.1 % (0.3-1.12); MINUTE VOLUME 13 L/min; PATIENT TEMPERATURE 37.1; PEEP 5 cm H2O; RESPIRATORY RATE 16 b/min; RESPIRATORY RATE (OBSERVED) 18 b/min; TIDAL VOLUME 650 mL; TOTAL HEMOGLOBIN 9.3 G/dl (14.0-18.0)
[2017-06-21 06:45] LABS: ANISOCYTOSIS 1+; PLATELET ESTIMATE INCREASED; TOTAL CELLS COUNTED 100
[2017-06-21 06:46] LABS: LARGE PLATELETS FEW; POLYCHROMASIA 1+; STOMATOCYTES 1+
[2017-06-21] MEDS: WATER IV SCH (07:24)
[2017-06-21] MEDS: DEXTROSE 5% IV SCH (07:24)
[2017-06-21] MEDS: MEROPENEM IV SCH (07:24)
[2017-06-21] MEDS: pantoprazole 40 MG vial IV SCH ×2 (07:25→20:16)
[2017-06-21] MEDS: lactobacillus rhamnosus 10,000 MMU CELLS/CAPSULE PO SCH ×2 (07:25→20:16)
[2017-06-21] MEDS: heparin, porcine 5000 units/ml vial SQ SCH ×2 (07:25→20:16)
[2017-06-21] MEDS: methylnaltrexone br 12mg/0.6ml inj***SubQ only SQ SCH (07:25)
[2017-06-21] MEDS: diltiazem-NS 100mg/100ml 100 ML IV SCH (08:13)
[2017-06-21 12:05] LABS: OXYGEN SATURATION (MIXED VEN) 57.8 % (60-80); PO2 MIXED VENOUS (TEMP COR) 30.5 mmHg (35-46)
[2017-06-21] MEDS ORDERED: heparin 1,000unit/ml 10ml vial 10 ML IV ONE (13:40)
[2017-06-21] MEDS ORDERED: epoetin 20,000 units/ml inj IV ONE (13:40)
[2017-06-21] MEDS ORDERED: normal saline 1000ml 250 ML IV PRN (13:40)
[2017-06-21] MEDS ORDERED: heparin 1,000 units/ml 10ml inj HE ONE ×2 (13:45)
[2017-06-21] MEDS: insulin glargine (Lantus) pen - multi-dose SQ SCH (21:02)
[2017-06-22] VITALS (26 sets, daily range): BP systolic 84–126; BP diastolic 49–75
[2017-06-22] MEDS: insulin regular, human 100 UNITS in normal saline 100ml IV soln 99 ML IV SCH ×12 (00:03→05:59)
[2017-06-22] MEDS: mineral oil/petrolatum ophthal oint EACHEYE SCH ×4 (01:07→19:52)
[2017-06-22 02:40] LABS: BASOPHILS % (AUTO) 0 % (0-1); EOSINOPHILS # (AUTO) 0.3 X10'3 (0-0.9); EOSINOPHILS % (AUTO) 1.6 % (0-6); HEMATOCRIT 24.5 % (42.0-52.0); HEMOGLOBIN 8.4 g/dl (14.0-17.9); LYMPHOCYTES # (AUTO) 0.3 X10'3 (1.1-4.8); MEAN CORPUSCULAR HEMOGLOBIN 29.4 PG (27.0-31.0); MEAN CORPUSCULAR HGB CONC 34.1 % (33.0-36.5); MEAN CORPUSCULAR VOLUME 86.2 FL (78-98); MEAN PLATELET VOLUME 7.3 FL (7.4-10.4); MONOCYTES # (AUTO) 1.2 X10'3 (0-0.9); MONOCYTES % (AUTO) 7.6 % (2-12); NEUTROPHILS # (AUTO) 14.4 X10'3 (1.8-7.7); NEUTROPHILS % (AUTO) 88.8 % (42-75); PLATELET COUNT 465 X10'3 (140-440); RED BLOOD COUNT 2.84 X10'6 (4.70-6.10); RED CELL DISTRIBUTION WIDTH 16.3 % (11.5-14.5); WHITE BLOOD COUNT 16.2 X10'3 (4.5-11.0)
[2017-06-22] MEDS: ipratropium/albuterol 3ml nebule NEB SCH ×4 (02:49→21:10)
[2017-06-22 03:05] LABS: ALANINE AMINOTRANSFERASE 13 U/L (12-78); ALBUMIN 3.6 G/DL (3.4-5.0); ALKALINE PHOSPHATASE 82 IU/L (46-116); ANION GAP 13 (8-16); ASPARTATE AMINO TRANSFERASE 8 U/L (10-37); BILIRUBIN,TOTAL 0.8 MG/DL (0.1-1.0); BLOOD UREA NITROGEN 45 MG/DL (7-18); BUN/CREATININE RATIO 14.4 (5.4-32.0); CALCIUM 9.2 MG/DL (8.5-10.1); CHLORIDE 98 MMOL/L (99-107); CREATININE 3.12 MG/DL (0.60-1.10); GLUCOSE 161 MG/DL (70-104); PHOSPHORUS 3.3 MG/DL (2.3-4.5); SODIUM 137 MMOL/L (135-145); TOTAL CARBON DIOXIDE 26.4 MMOL/L (24-32); TOTAL PROTEIN 7.3 G/DL (6.4-8.2); eGFR 19 ML/MIN
[2017-06-22 03:26] LABS: MAGNESIUM 2.1 MG/DL (1.5-2.4)
[2017-06-22 03:38] LABS: TRIGLYCERIDES 126 MG/DL (20-135)
[2017-06-22] MEDS: diltiazem-NS 100mg/100ml 100 ML IV SCH (03:44)
[2017-06-22 04:51] LABS: ABG BASE EXCESS 0.1 mmol/L (-2.0-3.0); ABG HCO3 24.1 mmol/L (22.0-26.0); ABG OXYGEN SATURATION 91.5 % (95-98); ABG PCO2 (T) 36.8 mmHg (35.0-48.0); ABG PH (T) 7.435 (7.350-7.450); ABG PO2 (T) 62.9 mmHg (83-108); ALLEN'S TEST Positive; FCOHb 0.3 % (0.5-1.5); FMetHb 0.3 % (0.3-1.12); MINUTE VOLUME 13 L/min; PATIENT TEMPERATURE 37.1; PEEP 5 cm H2O; RESPIRATORY RATE 16 b/min; RESPIRATORY RATE (OBSERVED) 16 b/min; TIDAL VOLUME 650 mL; TOTAL HEMOGLOBIN 9.8 G/dl (14.0-18.0)
[2017-06-22] MEDS: MEROPENEM IV SCH (07:24)
[2017-06-22] MEDS: pantoprazole 40 MG vial IV SCH ×2 (07:24→19:52)
[2017-06-22] MEDS: WATER IV SCH (07:24)
[2017-06-22] MEDS: heparin, porcine 5000 units/ml vial SQ SCH ×2 (07:24→20:00)
[2017-06-22] MEDS: DEXTROSE 5% IV SCH (07:24)
[2017-06-22] MEDS: lactobacillus rhamnosus 10,000 MMU CELLS/CAPSULE PO SCH ×2 (07:24→19:53)
[2017-06-22] MEDS ORDERED: normal saline 1000ml 250 ML IV PRN (08:16)
[2017-06-22] MEDS ORDERED: heparin 1,000unit/ml 10ml vial 10 ML IV ONE (08:16)
[2017-06-22] MEDS ORDERED: heparin 1,000 units/ml 10ml inj HE ONE ×2 (08:20)
[2017-06-22 09:56] LABS: TOTAL CELLS COUNTED 100
[2017-06-22 09:57] LABS: ANISOCYTOSIS 1+; PLATELET ESTIMATE INCREASED
[2017-06-22 09:58] LABS: POLYCHROMASIA 1+
[2017-06-22] MEDS ORDERED: dextrose ORAL solution 15 GM/59 ML bottle PO PRN ×2 (10:50)
[2017-06-22] MEDS ORDERED: dextrose 50%-water 50ml dispensing syringe IV PRN ×2 (10:50)
[2017-06-22] MEDS ORDERED: glucagon, human recombinant 1mg kit SUBCUT PRN (10:50)
[2017-06-22] MEDS: NORepinephrine 8mg/ 250ml NS 250 ML IV SCH (12:00)
[2017-06-22] MEDS: insulin regular, human vial - multi-dose SQ SCH (20:22)
[2017-06-22] MEDS: insulin glargine (Lantus) pen - multi-dose SQ SCH (20:23)
[2017-06-23] VITALS (23 sets, daily range): BP systolic 93–137; BP diastolic 61–80
[2017-06-23] MEDS: Dextrose 10%-water IV solution 1,000 ML IV SCH (00:36)
[2017-06-23] MEDS: mineral oil/petrolatum ophthal oint EACHEYE SCH ×4 (02:12→20:04)
[2017-06-23] MEDS: insulin regular, human vial - multi-dose SQ SCH ×3 (02:16→20:07)
[2017-06-23 03:25] LABS: BASOPHILS % (AUTO) 0 % (0-1); EOSINOPHILS # (AUTO) 0.1 X10'3 (0-0.9); EOSINOPHILS % (AUTO) 0.6 % (0-6); HEMATOCRIT 30.4 % (42.0-52.0); HEMOGLOBIN 10.3 g/dl (14.0-17.9); LYMPHOCYTES # (AUTO) 0.4 X10'3 (1.1-4.8); LYMPHOCYTES % (AUTO) 1.8 % (21-51); MEAN CORPUSCULAR HEMOGLOBIN 29.3 PG (27.0-31.0); MEAN CORPUSCULAR HGB CONC 33.7 % (33.0-36.5); MEAN CORPUSCULAR VOLUME 86.8 FL (78-98); MEAN PLATELET VOLUME 7.4 FL (7.4-10.4); MONOCYTES # (AUTO) 1.4 X10'3 (0-0.9); NEUTROPHILS # (AUTO) 18.1 X10'3 (1.8-7.7); NEUTROPHILS % (AUTO) 90.6 % (42-75); PLATELET COUNT 510 X10'3 (140-440); RED CELL DISTRIBUTION WIDTH 15.4 % (11.5-14.5)
[2017-06-23] MEDS: ipratropium/albuterol 3ml nebule NEB SCH ×4 (03:30→21:30)
[2017-06-23 03:43] LABS: ALANINE AMINOTRANSFERASE 14 U/L (12-78); ALBUMIN 3.2 G/DL (3.4-5.0); ALBUMIN/GLOBULIN RATIO 0.8 (1.1-1.5); ALKALINE PHOSPHATASE 85 IU/L (46-116); ANION GAP 13 (8-16); ASPARTATE AMINO TRANSFERASE 14 U/L (10-37); BILIRUBIN,TOTAL 1.2 MG/DL (0.1-1.0); BLOOD UREA NITROGEN 54 MG/DL (7-18); CALCIUM 9.1 MG/DL (8.5-10.1); CHLORIDE 97 MMOL/L (99-107); GLUCOSE 174 MG/DL (70-104); MAGNESIUM 2.2 MG/DL (1.5-2.4); PHOSPHORUS 3.4 MG/DL (2.3-4.5); POTASSIUM 4.2 MMOL/L (3.5-5.1); SODIUM 135 MMOL/L (135-145); TOTAL CARBON DIOXIDE 25.2 MMOL/L (24-32); TOTAL PROTEIN 7.4 G/DL (6.4-8.2); eGFR 20 ML/MIN
[2017-06-23 04:35] LABS: ABG BASE EXCESS 0.1 mmol/L (-2.0-3.0); ABG HCO3 23.8 mmol/L (22.0-26.0); ABG OXYGEN SATURATION 93.3 % (95-98); ABG PCO2 (T) 35.5 mmHg (35.0-48.0); ABG PH (T) 7.445 (7.350-7.450); ABG PO2 (T) 68.1 mmHg (83-108); ALLEN'S TEST Positive; FCOHb 0.1 % (0.5-1.5); FMetHb 0.2 % (0.3-1.12); MINUTE VOLUME 12 L/min; PATIENT TEMPERATURE 37.2; PEEP 8 cm H2O; RESPIRATORY RATE 16 b/min; RESPIRATORY RATE (OBSERVED) 16 b/min; TIDAL VOLUME 650 mL; TOTAL HEMOGLOBIN 11.4 G/dl (14.0-18.0)
[2017-06-23] MEDS: MEROPENEM IV SCH (07:26)
[2017-06-23] MEDS: DEXTROSE 5% IV SCH (07:26)
[2017-06-23] MEDS: WATER IV SCH (07:26)
[2017-06-23] MEDS: lactobacillus rhamnosus 10,000 MMU CELLS/CAPSULE PO SCH ×2 (07:26→20:04)
[2017-06-23] MEDS: pantoprazole 40 MG vial IV SCH ×2 (07:26→20:04)
[2017-06-23] MEDS: heparin, porcine 5000 units/ml vial SQ SCH ×2 (08:00→20:48)
[2017-06-23] MEDS: methylnaltrexone br 12mg/0.6ml inj***SubQ only SQ SCH (08:00)
[2017-06-23 08:02] LABS: TOTAL CELLS COUNTED 100
[2017-06-23 08:06] LABS: ANISOCYTOSIS 1+; PLATELET ESTIMATE INCREASED
[2017-06-23 08:07] LABS: LARGE PLATELETS FEW; POLYCHROMASIA 1+
[2017-06-23] MEDS ORDERED: epoetin 20,000 units/ml inj SQ SCH (09:00)
[2017-06-23 09:11] LABS: C DIFF ANTIGEN NEGATIVE (NEGATIVE); C DIFF SPECIMEN=DIARRHEA? ACCEPTABLE; C DIFFICILE TOXINS A&B NEGATIVE (Neg)
[2017-06-23] MEDS: LIPASE/PROTEASE/AMYLASE 4,200 unit CAPSULE.DR PO SCH ×3 (13:11→20:04)
[2017-06-23] MEDS: insulin glargine (Lantus) pen - multi-dose SQ SCH (20:10)
[2017-06-24] VITALS (28 sets, daily range): BP systolic 74–122; BP diastolic 46–80
[2017-06-24] MEDS: LIPASE/PROTEASE/AMYLASE 4,200 unit CAPSULE.DR PO SCH ×6 (00:37→21:58)
[2017-06-24] MEDS: Dextrose 10%-water IV solution 1,000 ML IV SCH ×2 (01:33→15:01)
[2017-06-24] MEDS: mineral oil/petrolatum ophthal oint EACHEYE SCH ×4 (01:34→21:58)
[2017-06-24] MEDS: insulin regular, human vial - multi-dose SQ SCH ×4 (01:36→22:00)
[2017-06-24] MEDS: ipratropium/albuterol 3ml nebule NEB SCH ×4 (03:03→20:35)
[2017-06-24 04:36] LABS: ABG BASE EXCESS -0.9 mmol/L (-2.0-3.0); ABG HCO3 22.5 mmol/L (22.0-26.0); ABG OXYGEN SATURATION 95.2 % (95-98); ABG PH (T) 7.451 (7.350-7.450); ABG PO2 (T) 76.1 mmHg (83-108); ALLEN'S TEST Positive; FCOHb 0.2 % (0.5-1.5); FMetHb 0.1 % (0.3-1.12); FO2Hb 94.9 % (94-100); MINUTE VOLUME 14 L/min; PEEP 8 cm H2O; RESPIRATORY RATE 14 b/min; RESPIRATORY RATE (OBSERVED) 17 b/min; TIDAL VOLUME 650 mL; TOTAL HEMOGLOBIN 11.6 G/dl (14.0-18.0)
[2017-06-24 06:06] LABS: ANION GAP 13 (8-16); BILIRUBIN,TOTAL 1.4 MG/DL (0.1-1.0); BLOOD UREA NITROGEN 81 MG/DL (7-18); BUN/CREATININE RATIO 18.6 (5.4-32.0); CALCIUM 9.2 MG/DL (8.5-10.1); CHLORIDE 96 MMOL/L (99-107); CREATININE 4.35 MG/DL (0.60-1.10); GLUCOSE 140 MG/DL (70-104); POTASSIUM 4.9 MMOL/L (3.5-5.1); SODIUM 132 MMOL/L (135-145); TOTAL CARBON DIOXIDE 23.3 MMOL/L (24-32); eGFR 13 ML/MIN
[2017-06-24 06:07] LABS: ALANINE AMINOTRANSFERASE 18 U/L (12-78); ALBUMIN 2.8 G/DL (3.4-5.0); ALBUMIN/GLOBULIN RATIO 0.6 (1.1-1.5); ALKALINE PHOSPHATASE 94 IU/L (46-116); ASPARTATE AMINO TRANSFERASE 19 U/L (10-37); TOTAL PROTEIN 7.4 G/DL (6.4-8.2)
[2017-06-24 06:28] LABS: BASOPHILS % (AUTO) 0 % (0-1); EOSINOPHILS # (AUTO) 0.1 X10'3 (0-0.9); EOSINOPHILS % (AUTO) 0.4 % (0-6); HEMATOCRIT 31.2 % (42.0-52.0); HEMOGLOBIN 10.9 g/dl (14.0-17.9); LYMPHOCYTES # (AUTO) 0.3 X10'3 (1.1-4.8); LYMPHOCYTES % (AUTO) 1.3 % (21-51); MEAN CORPUSCULAR HEMOGLOBIN 30.1 PG (27.0-31.0); MEAN CORPUSCULAR HGB CONC 34.9 % (33.0-36.5); MEAN CORPUSCULAR VOLUME 86.1 FL (78-98); MEAN PLATELET VOLUME 8.1 FL (7.4-10.4); MONOCYTES # (AUTO) 2.1 X10'3 (0-0.9); NEUTROPHILS # (AUTO) 23.8 X10'3 (1.8-7.7); NEUTROPHILS % (AUTO) 90.3 % (42-75); PLATELET COUNT 556 X10'3 (140-440); RED BLOOD COUNT 3.62 X10'6 (4.70-6.10); RED CELL DISTRIBUTION WIDTH 14.9 % (11.5-14.5)
[2017-06-24 06:32] LABS: WHITE BLOOD COUNT 26.3 X10'3 (4.5-11.0)
[2017-06-24] MEDS: WATER IV SCH (07:51)
[2017-06-24] MEDS: lactobacillus rhamnosus 10,000 MMU CELLS/CAPSULE PO SCH ×2 (07:51→21:59)
[2017-06-24] MEDS: pantoprazole 40 MG vial IV SCH ×2 (07:51→21:58)
[2017-06-24] MEDS: DEXTROSE 5% IV SCH (07:51)
[2017-06-24] MEDS: MEROPENEM IV SCH (07:51)
[2017-06-24] MEDS ORDERED: normal saline 1000ml 250 ML IV PRN (08:00)
[2017-06-24] MEDS ORDERED: heparin 1,000unit/ml 10ml vial 10 ML IV ONE (08:00)
[2017-06-24] MEDS ORDERED: heparin 1,000 units/ml 10ml inj HE ONE ×6 (08:00→09:25)
[2017-06-24] MEDS: diltiazem-NS 100mg/100ml 100 ML IV SCH (08:11)
[2017-06-24] MEDS ORDERED: albumin (human) 25% 100ml IV 100 ML IV PRN (09:25)
[2017-06-24 09:46] LABS: TOTAL CELLS COUNTED 100
[2017-06-24 09:48] LABS: PLATELET ESTIMATE INCREASED; POLYCHROMASIA 1+; TOXIC GRANULATION 1+
[2017-06-24] MEDS: NORepinephrine 8mg/ 250ml NS 250 ML IV SCH ×2 (11:20→15:54)
[2017-06-24] MEDS: FENTANYL-0.9 % NACL/PF 100 ML IV PRN (15:53)
[2017-06-24] MEDS ORDERED: MIDAZolam 5mg/5ml vial ONE (18:41)
[2017-06-24] MEDS ORDERED: propofol inj 20 ML IV ONE (18:42)
[2017-06-24] MEDS ORDERED: rocuronium 10mg/ml inj IV ONE (18:42)
[2017-06-24] MEDS ORDERED: LIDOcaine 1%/PF (10mg/ml) 5ml vial ONE (18:42)
[2017-06-24] MEDS ORDERED: fentaNYL/PF 50MCG/1 ML 2ML syringe ONE (18:43)
[2017-06-24] MEDS ORDERED: sevoflurane 250ml liquid IH ONE (19:27)
[2017-06-24] MEDS: insulin glargine (Lantus) pen - multi-dose SQ SCH (21:59)
[2017-06-25] VITALS (23 sets, daily range): BP systolic 87–116; BP diastolic 53–75
[2017-06-25] MEDS: LIPASE/PROTEASE/AMYLASE 4,200 unit CAPSULE.DR PO SCH ×6 (01:02→19:48)
[2017-06-25] MEDS: mineral oil/petrolatum ophthal oint EACHEYE SCH ×4 (02:18→19:48)
[2017-06-25] MEDS: insulin regular, human vial - multi-dose SQ SCH ×2 (02:21→08:09)
[2017-06-25] MEDS: ipratropium/albuterol 3ml nebule NEB SCH ×4 (02:33→20:36)
[2017-06-25 02:55] LABS: ABG BASE EXCESS -1.6 mmol/L (-2.0-3.0); ABG HCO3 21.4 mmol/L (22.0-26.0); ABG OXYGEN SATURATION 96.7 % (95-98); ABG PCO2 (T) 30.8 mmHg (35.0-48.0); ABG PH (T) 7.461 (7.350-7.450); ABG PO2 (T) 86.2 mmHg (83-108); ALLEN'S TEST Positive; FCOHb 0.1 % (0.5-1.5); FMetHb 0.2 % (0.3-1.12); FO2Hb 96.4 % (94-100); MINUTE VOLUME 14 L/min; PATIENT TEMPERATURE 36.9; PEEP 8 cm H2O; RESPIRATORY RATE 14 b/min; RESPIRATORY RATE (OBSERVED) 21 b/min; TIDAL VOLUME 650 mL; TOTAL HEMOGLOBIN 12.3 G/dl (14.0-18.0)
[2017-06-25 04:41] LABS: BASOPHILS # (AUTO) 0.1 X10'3 (0-0.2); BASOPHILS % (AUTO) 0.3 % (0-1); EOSINOPHILS # (AUTO) 0.2 X10'3 (0-0.9); EOSINOPHILS % (AUTO) 0.7 % (0-6); HEMATOCRIT 33.4 % (42.0-52.0); HEMOGLOBIN 11.5 g/dl (14.0-17.9); LYMPHOCYTES # (AUTO) 0.5 X10'3 (1.1-4.8); LYMPHOCYTES % (AUTO) 1.4 % (21-51); MEAN CORPUSCULAR HEMOGLOBIN 29.7 PG (27.0-31.0); MEAN CORPUSCULAR HGB CONC 34.4 % (33.0-36.5); MEAN CORPUSCULAR VOLUME 86.4 FL (78-98); MEAN PLATELET VOLUME 7.6 FL (7.4-10.4); MONOCYTES # (AUTO) 2.2 X10'3 (0-0.9); MONOCYTES % (AUTO) 6.4 % (2-12); NEUTROPHILS # (AUTO) 31.4 X10'3 (1.8-7.7); NEUTROPHILS % (AUTO) 91.2 % (42-75); PLATELET COUNT 550 X10'3 (140-440); RED BLOOD COUNT 3.87 X10'6 (4.70-6.10); RED CELL DISTRIBUTION WIDTH 16.1 % (11.5-14.5)
[2017-06-25 04:46] LABS: WHITE BLOOD COUNT 34.4 X10'3 (4.5-11.0)
[2017-06-25 04:57] LABS: ALANINE AMINOTRANSFERASE 18 U/L (12-78); ALBUMIN 2.5 G/DL (3.4-5.0); ALBUMIN/GLOBULIN RATIO 0.5 (1.1-1.5); ALKALINE PHOSPHATASE 96 IU/L (46-116); ANION GAP 12 (8-16); ASPARTATE AMINO TRANSFERASE 14 U/L (10-37); BILIRUBIN,TOTAL 1.5 MG/DL (0.1-1.0); BLOOD UREA NITROGEN 64 MG/DL (7-18); BUN/CREATININE RATIO 16.6 (5.4-32.0); CALCIUM 9.1 MG/DL (8.5-10.1); CHLORIDE 94 MMOL/L (99-107); CREATININE 3.85 MG/DL (0.60-1.10); GLUCOSE 202 MG/DL (70-104); PHOSPHORUS 5.5 MG/DL (2.3-4.5); POTASSIUM 5.2 MMOL/L (3.5-5.1); SODIUM 131 MMOL/L (135-145); TOTAL CARBON DIOXIDE 24.9 MMOL/L (24-32); TOTAL PROTEIN 7.3 G/DL (6.4-8.2); eGFR 15 ML/MIN
[2017-06-25 05:05] LABS: PREALBUMIN 14.9 MG/DL (19-36)
[2017-06-25] MEDS: NORepinephrine 8mg/ 250ml NS 250 ML IV SCH (07:56)
[2017-06-25] MEDS: methylnaltrexone br 12mg/0.6ml inj***SubQ only SQ SCH (08:00)
[2017-06-25] MEDS: pantoprazole 40 MG vial IV SCH ×2 (09:12→19:48)
[2017-06-25] MEDS: lactobacillus rhamnosus 10,000 MMU CELLS/CAPSULE PO SCH ×2 (09:12→19:48)
[2017-06-25] MEDS: WATER IV SCH ×2 (09:13→11:04)
[2017-06-25] MEDS: DEXTROSE 5% IV SCH ×2 (09:13→11:04)
[2017-06-25] MEDS: MEROPENEM IV SCH ×2 (09:13→11:04)
[2017-06-25 09:24] LABS: PLATELET ESTIMATE DECREASED; TOTAL CELLS COUNTED 100; TOXIC GRANULATION 1+; TOXIC VACUOLATION FEW
[2017-06-25 09:25] LABS: GIANT PLATELET FEW; LARGE PLATELETS FEW; SCHISTOCYTES FEW
[2017-06-25 09:26] LABS: POLYCHROMASIA FEW; STOMATOCYTES 1+
[2017-06-25] MEDS: piperacillin/tazo 3.375gm/50ml 50 ML IV SCH (15:45)
[2017-06-25] MEDS ORDERED: WATER IV ONE (17:00)
[2017-06-25] MEDS ORDERED: DEXTROSE 5% IV ONE (17:00)
[2017-06-25] MEDS ORDERED: VANCOMYCIN IV ONE (17:00)
[2017-06-25] MEDS: heparin, porcine 5000 units/ml vial SQ SCH (21:23)
[2017-06-25] MEDS: insulin glargine (Lantus) pen - multi-dose SQ SCH (21:28)
[2017-06-26] VITALS (24 sets, daily range): BP systolic 82–190; BP diastolic 50–72
[2017-06-26] MEDS: LIPASE/PROTEASE/AMYLASE 4,200 unit CAPSULE.DR PO SCH ×7 (00:35→23:52)
[2017-06-26] MEDS: piperacillin/tazo 3.375gm/50ml 50 ML IV SCH ×4 (00:35→23:52)
[2017-06-26] MEDS: mineral oil/petrolatum ophthal oint EACHEYE SCH ×4 (02:40→20:38)
[2017-06-26] MEDS: ipratropium/albuterol 3ml nebule NEB SCH ×4 (02:49→20:48)
[2017-06-26 03:00] LABS: ABG BASE EXCESS -4.5 mmol/L (-2.0-3.0); ABG HCO3 19.3 mmol/L (22.0-26.0); ABG OXYGEN SATURATION 94.8 % (95-98); ABG PCO2 (T) 32.4 mmHg (35.0-48.0); ABG PH (T) 7.395 (7.350-7.450); ABG PO2 (T) 80.2 mmHg (83-108); ALLEN'S TEST Positive; FCOHb 0.5 % (0.5-1.5); FMetHb 0.1 % (0.3-1.12); FO2Hb 94.2 % (94-100); PATIENT TEMPERATURE 37.6; PEEP 5 cm H2O; RESPIRATORY RATE 14 b/min; RESPIRATORY RATE (OBSERVED) 18 b/min; TIDAL VOLUME 650 mL; TOTAL HEMOGLOBIN 11.4 G/dl (14.0-18.0)
[2017-06-26] MEDS: Dextrose 10%-water IV solution 1,000 ML IV SCH (03:10)
[2017-06-26 03:53] LABS: BASOPHILS % (AUTO) 0.1 % (0-1); EOSINOPHILS % (AUTO) 0 % (0-6); HEMATOCRIT 30.6 % (42.0-52.0); HEMOGLOBIN 10.4 g/dl (14.0-17.9); LYMPHOCYTES # (AUTO) 0.6 X10'3 (1.1-4.8); LYMPHOCYTES % (AUTO) 2.2 % (21-51); MEAN CORPUSCULAR HEMOGLOBIN 29.2 PG (27.0-31.0); MEAN CORPUSCULAR HGB CONC 34.1 % (33.0-36.5); MEAN CORPUSCULAR VOLUME 85.7 FL (78-98); MEAN PLATELET VOLUME 7.4 FL (7.4-10.4); NEUTROPHILS # (AUTO) 25.9 X10'3 (1.8-7.7); NEUTROPHILS % (AUTO) 90.7 % (42-75); PLATELET COUNT 617 X10'3 (140-440); RED BLOOD COUNT 3.58 X10'6 (4.70-6.10); RED CELL DISTRIBUTION WIDTH 15.6 % (11.5-14.5)
[2017-06-26] MEDS: FENTANYL-0.9 % NACL/PF 100 ML IV PRN (03:57)
[2017-06-26] MEDS: diltiazem-NS 100mg/100ml 100 ML IV SCH ×2 (03:58→19:23)
[2017-06-26] MEDS: NORepinephrine 8mg/ 250ml NS 250 ML IV SCH (03:58)
[2017-06-26 03:59] LABS: ALANINE AMINOTRANSFERASE 16 U/L (12-78); ALBUMIN 2.3 G/DL (3.4-5.0); ALBUMIN/GLOBULIN RATIO 0.5 (1.1-1.5); ALKALINE PHOSPHATASE 95 IU/L (46-116); ANION GAP 16 (8-16); ASPARTATE AMINO TRANSFERASE 17 U/L (10-37); BILIRUBIN,TOTAL 1.8 MG/DL (0.1-1.0); BLOOD UREA NITROGEN 89 MG/DL (7-18); BUN/CREATININE RATIO 18.1 (5.4-32.0); CHLORIDE 93 MMOL/L (99-107); CREATININE 4.91 MG/DL (0.60-1.10); GLUCOSE 211 MG/DL (70-104); POTASSIUM 5.6 MMOL/L (3.5-5.1); SODIUM 129 MMOL/L (135-145); TOTAL CARBON DIOXIDE 20.5 MMOL/L (24-32); WHITE BLOOD COUNT 28.5 X10'3 (4.5-11.0); eGFR 12 ML/MIN
[2017-06-26 04:35] LABS: PLATELET ESTIMATE INCREASED; TOTAL CELLS COUNTED 100; TOXIC VACUOLATION FEW
[2017-06-26 04:36] LABS: ANISOCYTOSIS 1+; LARGE PLATELETS FEW; POLYCHROMASIA FEW; TOXIC GRANULATION 3+
[2017-06-26 04:37] LABS: STOMATOCYTES 1+
[2017-06-26] MEDS: lactobacillus rhamnosus 10,000 MMU CELLS/CAPSULE PO SCH ×4 (08:00→20:38)
[2017-06-26] MEDS ORDERED: epoetin 20,000 units/ml inj IV ONE (08:00)
[2017-06-26] MEDS ORDERED: normal saline 1000ml 100 ML IV PRN (08:00)
[2017-06-26] MEDS ORDERED: vancomycin/NS 1 GM ADD-VANTAGE 250 ML IV SCH (08:00)
[2017-06-26] MEDS ORDERED: heparin 1,000 units/ml 10ml inj HE ONE ×2 (08:00)
[2017-06-26] MEDS ORDERED: normal saline 1000ml 250 ML IV PRN (08:00)
[2017-06-26] MEDS: WATER IV SCH (08:44)
[2017-06-26] MEDS: DEXTROSE 5% IV SCH (08:44)
[2017-06-26] MEDS: MEROPENEM IV SCH (08:44)
[2017-06-26] MEDS: pantoprazole 40 MG vial IV SCH ×2 (08:44→20:38)
[2017-06-26] MEDS: heparin, porcine 5000 units/ml vial SQ SCH ×2 (08:58→20:39)
[2017-06-26] MEDS ORDERED: epoetin 20,000 units/ml inj SQ SCH (09:00)
[2017-06-26] MEDS: insulin regular, human vial - multi-dose SQ SCH ×2 (09:42→21:48)
[2017-06-26] MEDS: insulin glargine (Lantus) pen - multi-dose SQ SCH (21:47)
[2017-06-26 23:10] LABS: OXYGEN SATURATION (MIXED VEN) 71.2 % (60-80); PO2 MIXED VENOUS (TEMP COR) 36.4 mmHg (35-46)
[2017-06-27] VITALS (24 sets, daily range): BP systolic 87–125; BP diastolic 50–77
[2017-06-27] MEDS: FENTANYL-0.9 % NACL/PF 100 ML IV PRN (00:34)
[2017-06-27] MEDS: mineral oil/petrolatum ophthal oint EACHEYE SCH ×4 (02:06→20:13)
[2017-06-27] MEDS: insulin regular, human vial - multi-dose SQ SCH ×3 (02:06→22:02)
[2017-06-27 03:06] LABS: ABG HCO3 21.1 mmol/L (22.0-26.0); ABG OXYGEN SATURATION 95.7 % (95-98); ABG PCO2 (T) 31.1 mmHg (35.0-48.0); ABG PH (T) 7.451 (7.350-7.450); ABG PO2 (T) 85.2 mmHg (83-108); ALLEN'S TEST Positive; FCOHb 0.4 % (0.5-1.5); FMetHb 0.2 % (0.3-1.12); FO2Hb 95.1 % (94-100); PATIENT TEMPERATURE 37.5; PEEP 8 cm H2O; RESPIRATORY RATE 14 b/min; RESPIRATORY RATE (OBSERVED) 16 b/min; TIDAL VOLUME 650 mL
[2017-06-27 03:55] LABS: BASOPHILS % (AUTO) 0 % (0-1); EOSINOPHILS # (AUTO) 0.4 X10'3 (0-0.9); EOSINOPHILS % (AUTO) 1.5 % (0-6); HEMATOCRIT 29.1 % (42.0-52.0); HEMOGLOBIN 9.7 g/dl (14.0-17.9); LYMPHOCYTES # (AUTO) 0.4 X10'3 (1.1-4.8); LYMPHOCYTES % (AUTO) 1.8 % (21-51); MEAN CORPUSCULAR HEMOGLOBIN 28.8 PG (27.0-31.0); MEAN CORPUSCULAR HGB CONC 33.4 % (33.0-36.5); MEAN CORPUSCULAR VOLUME 86.3 FL (78-98); MEAN PLATELET VOLUME 7.6 FL (7.4-10.4); MONOCYTES # (AUTO) 1.7 X10'3 (0-0.9); NEUTROPHILS # (AUTO) 21.9 X10'3 (1.8-7.7); NEUTROPHILS % (AUTO) 89.7 % (42-75); PLATELET COUNT 716 X10'3 (140-440); RED BLOOD COUNT 3.37 X10'6 (4.70-6.10); RED CELL DISTRIBUTION WIDTH 15.4 % (11.5-14.5); WHITE BLOOD COUNT 24.4 X10'3 (4.5-11.0)
[2017-06-27] MEDS: ipratropium/albuterol 3ml nebule NEB SCH ×4 (04:02→19:53)
[2017-06-27] MEDS: LIPASE/PROTEASE/AMYLASE 4,200 unit CAPSULE.DR PO SCH ×6 (04:09→23:47)
[2017-06-27 04:17] LABS: ALANINE AMINOTRANSFERASE 18 U/L (12-78); ALBUMIN 2.1 G/DL (3.4-5.0); ALBUMIN/GLOBULIN RATIO 0.4 (1.1-1.5); ALKALINE PHOSPHATASE 108 IU/L (46-116); ANION GAP 14 (8-16); ASPARTATE AMINO TRANSFERASE 18 U/L (10-37); BILIRUBIN,TOTAL 1.3 MG/DL (0.1-1.0); BLOOD UREA NITROGEN 63 MG/DL (7-18); BUN/CREATININE RATIO 15.8 (5.4-32.0); CALCIUM 8.7 MG/DL (8.5-10.1); CHLORIDE 95 MMOL/L (99-107); CREATININE 3.99 MG/DL (0.60-1.10); GLUCOSE 155 MG/DL (70-104); POTASSIUM 4.5 MMOL/L (3.5-5.1); SODIUM 133 MMOL/L (135-145); TOTAL CARBON DIOXIDE 24.1 MMOL/L (24-32); eGFR 15 ML/MIN
[2017-06-27] MEDS: Dextrose 10%-water IV solution 1,000 ML IV SCH (05:32)
[2017-06-27] MEDS: NORepinephrine 8mg/ 250ml NS 250 ML IV SCH (05:33)
[2017-06-27] MEDS: methylnaltrexone br 12mg/0.6ml inj***SubQ only SQ SCH (08:00)
[2017-06-27] MEDS: piperacillin/tazo 3.375gm/50ml 50 ML IV SCH ×3 (09:04→23:47)
[2017-06-27] MEDS: MEROPENEM IV SCH (09:04)
[2017-06-27] MEDS: DEXTROSE 5% IV SCH (09:04)
[2017-06-27] MEDS: WATER IV SCH (09:04)
[2017-06-27] MEDS: lactobacillus rhamnosus 10,000 MMU CELLS/CAPSULE PO SCH ×2 (09:04→20:13)
[2017-06-27] MEDS: pantoprazole 40 MG vial IV SCH ×2 (09:04→20:13)
[2017-06-27] MEDS: heparin, porcine 5000 units/ml vial SQ SCH ×2 (09:05→20:14)
[2017-06-27] MEDS ORDERED: insulin Lispro (HumaLOG) vial - multi-dose SQ SCH (14:55)
[2017-06-27] MEDS ORDERED: MAG PROTOCOL PO PRN (15:05)
[2017-06-27] MEDS ORDERED: MAGNESIUM 2 GRAMS IN 50ML BAG IV PRN (15:05)
[2017-06-27] MEDS ORDERED: sodium phosphate inj. 15 MMOL in dextrose 5%-water 145 ML IV PRN (15:05)
[2017-06-27] MEDS ORDERED: [UNRECOGNIZED DRUG - OTHER] IV PRN (15:05)
[2017-06-27] MEDS ORDERED: POTASSIUM CHLORIDE IV PRN (15:05)
[2017-06-27] MEDS ORDERED: Neutra Phos packet PO PRN (15:05)
[2017-06-27] MEDS ORDERED: MAGNESIUM 4 GM IN 100ML BAG IV PRN (15:05)
[2017-06-27] MEDS ORDERED: sodium phosphate inj. 30 MMOL in dextrose 5%-water 240 ML IV PRN (15:05)
[2017-06-27] MEDS: diltiazem-NS 100mg/100ml 100 ML IV SCH (15:26)
[2017-06-27] MEDS: [UNRECOGNIZED DRUG - REMARK] IV SCH ×4 (20:12)
[2017-06-27 21:31] LABS: OXYGEN SATURATION (MIXED VEN) 64.1 % (60-80); PO2 MIXED VENOUS (TEMP COR) 34.2 mmHg (35-46)
[2017-06-27] MEDS: insulin glargine (Lantus) pen - multi-dose SQ SCH (22:01)
[2017-06-28] VITALS (23 sets, daily range): BP systolic 73–133; BP diastolic 53–74
[2017-06-28] MEDS: mineral oil/petrolatum ophthal oint EACHEYE SCH ×4 (02:25→19:56)
[2017-06-28] MEDS: insulin regular, human vial - multi-dose SQ SCH ×3 (02:26→19:53)
[2017-06-28 02:34] LABS: BASOPHILS % (AUTO) 0.1 % (0-1); EOSINOPHILS # (AUTO) 0.1 X10'3 (0-0.9); EOSINOPHILS % (AUTO) 0.3 % (0-6); HEMATOCRIT 28.2 % (42.0-52.0); HEMOGLOBIN 9.7 g/dl (14.0-17.9); LYMPHOCYTES # (AUTO) 0.5 X10'3 (1.1-4.8); LYMPHOCYTES % (AUTO) 1.9 % (21-51); MEAN CORPUSCULAR HEMOGLOBIN 29.4 PG (27.0-31.0); MEAN CORPUSCULAR HGB CONC 34.3 % (33.0-36.5); MEAN CORPUSCULAR VOLUME 85.8 FL (78-98); MEAN PLATELET VOLUME 7.3 FL (7.4-10.4); MONOCYTES # (AUTO) 1.3 X10'3 (0-0.9); NEUTROPHILS # (AUTO) 23.7 X10'3 (1.8-7.7); NEUTROPHILS % (AUTO) 92.7 % (42-75); PLATELET COUNT 749 X10'3 (140-440); RED BLOOD COUNT 3.29 X10'6 (4.70-6.10); RED CELL DISTRIBUTION WIDTH 15.1 % (11.5-14.5)
[2017-06-28 02:46] LABS: WHITE BLOOD COUNT 25.6 X10'3 (4.5-11.0)
[2017-06-28 02:47] LABS: ALANINE AMINOTRANSFERASE 15 U/L (12-78); ALBUMIN 1.9 G/DL (3.4-5.0); ALBUMIN/GLOBULIN RATIO 0.4 (1.1-1.5); ALKALINE PHOSPHATASE 133 IU/L (46-116); ANION GAP 15 (8-16); ASPARTATE AMINO TRANSFERASE 18 U/L (10-37); BILIRUBIN,TOTAL 1.1 MG/DL (0.1-1.0); BLOOD UREA NITROGEN 76 MG/DL (7-18); BUN/CREATININE RATIO 15.1 (5.4-32.0); CALCIUM 8.2 MG/DL (8.5-10.1); CHLORIDE 92 MMOL/L (99-107); CREATININE 5.02 MG/DL (0.60-1.10); GLUCOSE 169 MG/DL (70-104); MAGNESIUM 2.1 MG/DL (1.5-2.4); PHOSPHORUS 7.1 MG/DL (2.3-4.5); POTASSIUM 5.1 MMOL/L (3.5-5.1); SODIUM 130 MMOL/L (135-145); TOTAL CARBON DIOXIDE 22.6 MMOL/L (24-32); TOTAL PROTEIN 7.1 G/DL (6.4-8.2); eGFR 11 ML/MIN
[2017-06-28] MEDS: ipratropium/albuterol 3ml nebule NEB SCH ×4 (03:19→20:31)
[2017-06-28 03:31] LABS: ABG BASE EXCESS -4.8 mmol/L (-2.0-3.0); ABG HCO3 18.3 mmol/L (22.0-26.0); ABG OXYGEN SATURATION 94.2 % (95-98); ABG PCO2 (T) 28.2 mmHg (35.0-48.0); ABG PH (T) 7.433 (7.350-7.450); ABG PO2 (T) 73.8 mmHg (83-108); ALLEN'S TEST Positive; FCOHb 0.3 % (0.5-1.5); FMetHb 0.1 % (0.3-1.12); FO2Hb 93.8 % (94-100); MINUTE VOLUME 13 L/min; PATIENT TEMPERATURE 37.3; PEEP 8 cm H2O; RESPIRATORY RATE 14 b/min; RESPIRATORY RATE (OBSERVED) 21 b/min; TIDAL VOLUME 650 mL; TOTAL HEMOGLOBIN 10.8 G/dl (14.0-18.0)
[2017-06-28 03:56] LABS: ANISOCYTOSIS 1+; LARGE PLATELETS FEW; PLATELET ESTIMATE INCREASED; TOTAL CELLS COUNTED 100
[2017-06-28] MEDS: LIPASE/PROTEASE/AMYLASE 4,200 unit CAPSULE.DR PO SCH ×6 (04:35→23:43)
[2017-06-28] MEDS: Dextrose 10%-water IV solution 1,000 ML IV SCH (05:10)
[2017-06-28] MEDS: NORepinephrine 8mg/ 250ml NS 250 ML IV SCH (06:58)
[2017-06-28 07:46] LABS: VANCOMYCIN,RANDOM 39.7 UG/ML
[2017-06-28] MEDS: K, MAG and/or Phos replacement - Verify level? MC SCH (08:00)
[2017-06-28] MEDS: meropenem inj 500 MG in normal saline 100ml IV soln 100 ML IV SCH (08:25)
[2017-06-28] MEDS: piperacillin/tazo 3.375gm/50ml 50 ML IV SCH ×3 (08:25→23:44)
[2017-06-28] MEDS: pantoprazole 40 MG vial IV SCH ×2 (08:26→19:55)
[2017-06-28] MEDS: heparin, porcine 5000 units/ml vial SQ SCH ×2 (08:27→19:57)
[2017-06-28] MEDS: lactobacillus rhamnosus 10,000 MMU CELLS/CAPSULE PO SCH ×2 (08:27→19:56)
[2017-06-28] MEDS: diltiazem-NS 100mg/100ml 100 ML IV SCH (12:15)
[2017-06-28] MEDS: FENTANYL-0.9 % NACL/PF 100 ML IV PRN (13:38)
[2017-06-28] MEDS: [UNRECOGNIZED DRUG - REMARK] IV SCH ×4 (16:46)
[2017-06-28] MEDS: insulin glargine (Lantus) pen - multi-dose SQ SCH (19:55)
[2017-06-28 23:25] LABS: OXYGEN SATURATION (MIXED VEN) 55.2 % (60-80); PO2 MIXED VENOUS (TEMP COR) 33.5 mmHg (35-46)
[2017-06-28] MEDS ORDERED: insulin R INFUSION 1 ML IV ONE (23:41)
[2017-06-29] VITALS (26 sets, daily range): BP systolic 86–135; BP diastolic 44–89
[2017-06-29] MEDS: insulin regular, human 100 UNITS in normal saline 100ml IV soln 99 ML IV SCH ×20 (01:08→09:23)
[2017-06-29] MEDS: mineral oil/petrolatum ophthal oint EACHEYE SCH ×4 (02:02→20:47)
[2017-06-29] MEDS: [UNRECOGNIZED DRUG - REMARK] IV SCH ×12 (02:02→20:46)
[2017-06-29] MEDS: ipratropium/albuterol 3ml nebule NEB SCH ×4 (02:59→20:04)
[2017-06-29] MEDS: VANCOMYCIN LEVEL IV SCH (03:00)
[2017-06-29 03:11] LABS: ABG BASE EXCESS -8.9 mmol/L (-2.0-3.0); ABG HCO3 15.2 mmol/L (22.0-26.0); ABG OXYGEN SATURATION 90.4 % (95-98); ABG PCO2 (T) 27.5 mmHg (35.0-48.0); ABG PH (T) 7.361 (7.350-7.450); ABG PO2 (T) 63.2 mmHg (83-108); ALLEN'S TEST Positive; FCOHb 0.7 % (0.5-1.5); FMetHb 0.1 % (0.3-1.12); FO2Hb 89.7 % (94-100); PEEP 8 cm H2O; RESPIRATORY RATE 14 b/min; RESPIRATORY RATE (OBSERVED) 19 b/min; TIDAL VOLUME 650 mL; TOTAL HEMOGLOBIN 10.8 G/dl (14.0-18.0)
[2017-06-29] MEDS: insulin regular, human vial - multi-dose SQ SCH ×2 (03:22→20:56)
[2017-06-29 03:24] LABS: BASOPHILS # (AUTO) 0.1 X10'3 (0-0.2); BASOPHILS % (AUTO) 0.4 % (0-1); EOSINOPHILS # (AUTO) 0.6 X10'3 (0-0.9); HEMATOCRIT 28.5 % (42.0-52.0); HEMOGLOBIN 9.6 g/dl (14.0-17.9); LYMPHOCYTES # (AUTO) 0.3 X10'3 (1.1-4.8); LYMPHOCYTES % (AUTO) 1.1 % (21-51); MEAN CORPUSCULAR HEMOGLOBIN 29.4 PG (27.0-31.0); MEAN CORPUSCULAR HGB CONC 33.8 % (33.0-36.5); MEAN PLATELET VOLUME 7.5 FL (7.4-10.4); MONOCYTES # (AUTO) 1.1 X10'3 (0-0.9); NEUTROPHILS # (AUTO) 26.1 X10'3 (1.8-7.7); NEUTROPHILS % (AUTO) 92.5 % (42-75); PLATELET COUNT 774 X10'3 (140-440); RED BLOOD COUNT 3.28 X10'6 (4.70-6.10); RED CELL DISTRIBUTION WIDTH 15.5 % (11.5-14.5)
[2017-06-29 03:28] LABS: WHITE BLOOD COUNT 28.2 X10'3 (4.5-11.0)
[2017-06-29 03:39] LABS: ALANINE AMINOTRANSFERASE 10 U/L (12-78); ALBUMIN 1.8 G/DL (3.4-5.0); ALBUMIN/GLOBULIN RATIO 0.3 (1.1-1.5); ALKALINE PHOSPHATASE 105 IU/L (46-116); ANION GAP 16 (8-16); ASPARTATE AMINO TRANSFERASE 13 U/L (10-37); BILIRUBIN,TOTAL 0.8 MG/DL (0.1-1.0); BLOOD UREA NITROGEN 94 MG/DL (7-18); BUN/CREATININE RATIO 16.2 (5.4-32.0); CHLORIDE 90 MMOL/L (99-107); CREATININE 5.81 MG/DL (0.60-1.10); GLUCOSE 251 MG/DL (70-104); MAGNESIUM 1.9 MG/DL (1.5-2.4); PHOSPHORUS 7.1 MG/DL (2.3-4.5); PREALBUMIN 11.6 MG/DL (19-36); SODIUM 126 MMOL/L (135-145); TOTAL CARBON DIOXIDE 19.7 MMOL/L (24-32); TOTAL PROTEIN 7.1 G/DL (6.4-8.2); VANCOMYCIN,RANDOM 34.5 UG/ML; eGFR 10 ML/MIN
[2017-06-29] MEDS: LIPASE/PROTEASE/AMYLASE 4,200 unit CAPSULE.DR PO SCH ×5 (04:07→20:45)
[2017-06-29 04:39] LABS: TOTAL CELLS COUNTED 100
[2017-06-29 04:41] LABS: PLATELET ESTIMATE INCREASED
[2017-06-29 04:44] LABS: LARGE PLATELETS FEW; TOXIC VACUOLATION FEW
[2017-06-29] MEDS: diltiazem-NS 100mg/100ml 100 ML IV SCH (05:17)
[2017-06-29] MEDS: Dextrose 10%-water IV solution 1,000 ML IV SCH (06:10)
[2017-06-29] MEDS: methylnaltrexone br 12mg/0.6ml inj***SubQ only SQ SCH (08:00)
[2017-06-29] MEDS: K, MAG and/or Phos replacement - Verify level? MC SCH (08:00)
[2017-06-29] MEDS: heparin, porcine 5000 units/ml vial SQ SCH ×3 (08:00→20:00)
[2017-06-29] MEDS ORDERED: heparin 1,000 units/ml 10ml inj IV ONE (08:25)
[2017-06-29] MEDS ORDERED: heparin 1,000unit/ml 10ml vial 10 ML IV ONE (08:25)
[2017-06-29] MEDS ORDERED: albumin (human) 25% 100ml IV 100 ML IV PRN (08:25)
[2017-06-29] MEDS ORDERED: epoetin 20,000 units/ml inj IV ONE (08:25)
[2017-06-29] MEDS ORDERED: heparin 1,000 units/ml 10ml inj HE ONE ×2 (08:30)
[2017-06-29] MEDS: FENTANYL-0.9 % NACL/PF 100 ML IV PRN (08:42)
[2017-06-29] MEDS: pantoprazole 40 MG vial IV SCH ×2 (08:59→20:47)
[2017-06-29] MEDS: meropenem inj 500 MG in normal saline 100ml IV soln 100 ML IV SCH (08:59)
[2017-06-29] MEDS: piperacillin/tazo 3.375gm/50ml 50 ML IV SCH (08:59)
[2017-06-29] MEDS: lactobacillus rhamnosus 10,000 MMU CELLS/CAPSULE PO SCH ×2 (09:00→20:45)
[2017-06-29] MEDS ORDERED: LIDOcaine 1%/PF (10mg/ml) 5ml vial ONE (09:19)
[2017-06-29 10:12] LABS: BODY FLUID PH (NON-PLEURAL) 7.5
[2017-06-29 10:42] LABS: ALBUMIN,BODY FLUID 2.1 G/DL; AMYLASE,BODY FLUID 46 U/L; LDH,BODY FLUID 230 U/L; LIPASE,BODY FLUID 34 U/L; TOTAL PROTEIN,BODY FLUID 5.1 G/DL
[2017-06-29] MEDS: NORepinephrine 8mg/ 250ml NS 250 ML IV SCH (11:44)
[2017-06-29 12:28] LABS: LYMPHOCYTES,BODY FLUID 10 %; MONOCYTES,BODY FLUID 2 %; NEUTROPHILS,BODY FLUID 88 %
[2017-06-29 12:30] LABS: BFAPPEAR HAZY; BFCOLOR YELLOW; BFVOLUME 45 ML
[2017-06-29 12:31] LABS: BF RBC COUNT 60 /CU MM; BF WBC COUNT 885 /CU MM (0-1000)
[2017-06-29] MEDS: fluconazole-Diflucan 200mg/NS 100 ML IV SCH (14:54)
[2017-06-29] MEDS ORDERED: VANCOMYCIN LEVEL IV ONE (16:30)
[2017-06-29] MEDS: insulin glargine (Lantus) pen - multi-dose SQ SCH (20:57)
[2017-06-30] VITALS (24 sets, daily range): BP systolic 85–127; BP diastolic 45–77
[2017-06-30] MEDS: LIPASE/PROTEASE/AMYLASE 4,200 unit CAPSULE.DR PO SCH ×6 (00:43→21:25)
[2017-06-30] MEDS: insulin regular, human vial - multi-dose SQ SCH ×4 (02:31→21:38)
[2017-06-30] MEDS: mineral oil/petrolatum ophthal oint EACHEYE SCH ×4 (02:32→21:25)
[2017-06-30] MEDS: ipratropium/albuterol 3ml nebule NEB SCH ×4 (02:44→21:05)
[2017-06-30] MEDS: VANCOMYCIN LEVEL IV SCH (03:00)
[2017-06-30] MEDS: diltiazem-NS 100mg/100ml 100 ML IV SCH ×2 (04:29→21:30)
[2017-06-30] MEDS: NORepinephrine 8mg/ 250ml NS 250 ML IV SCH ×2 (04:30→21:30)
[2017-06-30 04:40] LABS: ABG BASE EXCESS -4.1 mmol/L (-2.0-3.0); ABG HCO3 19.9 mmol/L (22.0-26.0); ABG OXYGEN SATURATION 94.5 % (95-98); ABG PCO2 (T) 32.3 mmHg (35.0-48.0); ABG PH (T) 7.407 (7.350-7.450); ABG PO2 (T) 72.4 mmHg (83-108); ALLEN'S TEST Positive; FCOHb 0.3 % (0.5-1.5); FMetHb 0.3 % (0.3-1.12); FO2Hb 93.9 % (94-100); MINUTE VOLUME 12 L/min; PATIENT TEMPERATURE 36.8; PEEP 8 cm H2O; RESPIRATORY RATE 14 b/min; RESPIRATORY RATE (OBSERVED) 18 b/min; TIDAL VOLUME 650 mL; TOTAL HEMOGLOBIN 10.4 G/dl (14.0-18.0)
[2017-06-30 05:11] LABS: BASOPHILS % (AUTO) 0 % (0-1); EOSINOPHILS # (AUTO) 0.8 X10'3 (0-0.9); EOSINOPHILS % (AUTO) 2.5 % (0-6); HEMATOCRIT 28.3 % (42.0-52.0); HEMOGLOBIN 9.6 g/dl (14.0-17.9); LYMPHOCYTES # (AUTO) 0.3 X10'3 (1.1-4.8); MEAN CORPUSCULAR HEMOGLOBIN 29.2 PG (27.0-31.0); MEAN CORPUSCULAR HGB CONC 34.1 % (33.0-36.5); MEAN CORPUSCULAR VOLUME 85.6 FL (78-98); MEAN PLATELET VOLUME 7.7 FL (7.4-10.4); MONOCYTES # (AUTO) 1.6 X10'3 (0-0.9); MONOCYTES % (AUTO) 5.1 % (2-12); NEUTROPHILS # (AUTO) 28.3 X10'3 (1.8-7.7); NEUTROPHILS % (AUTO) 91.4 % (42-75); PLATELET COUNT 808 X10'3 (140-440); RED CELL DISTRIBUTION WIDTH 15.6 % (11.5-14.5)
[2017-06-30 05:45] LABS: ALANINE AMINOTRANSFERASE 8 U/L (12-78); ALBUMIN 1.9 G/DL (3.4-5.0); ALBUMIN/GLOBULIN RATIO 0.4 (1.1-1.5); ALKALINE PHOSPHATASE 104 IU/L (46-116); ANION GAP 14 (8-16); ASPARTATE AMINO TRANSFERASE 14 U/L (10-37); BILIRUBIN,TOTAL 0.8 MG/DL (0.1-1.0); BLOOD UREA NITROGEN 72 MG/DL (7-18); BUN/CREATININE RATIO 17.7 (5.4-32.0); CALCIUM 8.1 MG/DL (8.5-10.1); CHLORIDE 93 MMOL/L (99-107); CREATININE 4.06 MG/DL (0.60-1.10); GLUCOSE 183 MG/DL (70-104); MAGNESIUM 1.8 MG/DL (1.5-2.4); PHOSPHORUS 4.7 MG/DL (2.3-4.5); POTASSIUM 3.8 MMOL/L (3.5-5.1); SODIUM 128 MMOL/L (135-145); TOTAL CARBON DIOXIDE 21.4 MMOL/L (24-32); TOTAL PROTEIN 6.8 G/DL (6.4-8.2); VANCOMYCIN,RANDOM 27.2 UG/ML; eGFR 14 ML/MIN
[2017-06-30 06:03] LABS: WHITE BLOOD COUNT 30.9 X10'3 (4.5-11.0)
[2017-06-30] MEDS: methylnaltrexone br 12mg/0.6ml inj***SubQ only SQ SCH (06:42)
[2017-06-30] MEDS: Dextrose 10%-water IV solution 1,000 ML IV SCH (07:10)
[2017-06-30 07:59] LABS: BANDS% (MANUAL) 1 % (0-10); MONOCYTES % (MANUAL) 6 % (2-12); NEUTROPHILS % (MANUAL) 90 % (42-75); TOTAL CELLS COUNTED 100
[2017-06-30 08:00] LABS: ANISOCYTOSIS 1+; EOSINOPHILS % (MANUAL) 2 % (0-6); METAMYLEOCYTES% (MANUAL) 1 % (0-0); PLATELET ESTIMATE INCREASED
[2017-06-30] MEDS: K, MAG and/or Phos replacement - Verify level? MC SCH (08:00)
[2017-06-30] MEDS: pantoprazole 40 MG vial IV SCH ×2 (08:44→21:25)
[2017-06-30] MEDS: fluconazole-Diflucan 200mg/NS 100 ML IV SCH (08:44)
[2017-06-30] MEDS: meropenem inj 500 MG in normal saline 100ml IV soln 100 ML IV SCH (08:44)
[2017-06-30] MEDS: lactobacillus rhamnosus 10,000 MMU CELLS/CAPSULE PO SCH ×2 (08:45→21:25)
[2017-06-30] MEDS ORDERED: methylnaltrexone br 12mg/0.6ml inj***SubQ only SQ ONE (09:50)
[2017-06-30] MEDS: heparin, porcine 5000 units/ml vial SQ SCH ×2 (13:11→21:26)
[2017-06-30] MEDS: [UNRECOGNIZED DRUG - REMARK] IV SCH ×4 (14:46)
[2017-06-30] MEDS: FENTANYL-0.9 % NACL/PF 100 ML IV PRN (16:56)
[2017-06-30] MEDS: insulin glargine (Lantus) pen - multi-dose SQ SCH (21:39)
[2017-07-01] VITALS (24 sets, daily range): BP systolic 68–135; BP diastolic 54–73
[2017-07-01] MEDS: LIPASE/PROTEASE/AMYLASE 4,200 unit CAPSULE.DR PO SCH ×6 (00:06→20:49)
[2017-07-01] MEDS: [UNRECOGNIZED DRUG - REMARK] IV SCH ×8 (00:06→09:06)
[2017-07-01 00:10] LABS: OXYGEN SATURATION (MIXED VEN) 74.3 % (60-80); PO2 MIXED VENOUS (TEMP COR) 40.3 mmHg (35-46)
[2017-07-01] MEDS: mineral oil/petrolatum ophthal oint EACHEYE SCH ×4 (02:24→20:49)
[2017-07-01] MEDS: insulin regular, human vial - multi-dose SQ SCH ×4 (02:27→20:57)
[2017-07-01 02:45] LABS: ABG BASE EXCESS -7.9 mmol/L (-2.0-3.0); ABG HCO3 16.7 mmol/L (22.0-26.0); ABG OXYGEN SATURATION 95.1 % (95-98); ABG PCO2 (T) 29.9 mmHg (35.0-48.0); ABG PO2 (T) 74.6 mmHg (83-108); ALLEN'S TEST Positive; FCOHb 0.1 % (0.5-1.5); MINUTE VOLUME 10 L/min; PATIENT TEMPERATURE 36.2; PEEP 8 cm H2O; RESPIRATORY RATE 14 b/min; RESPIRATORY RATE (OBSERVED) 16 b/min; TIDAL VOLUME 650 mL; TOTAL HEMOGLOBIN 10.4 G/dl (14.0-18.0)
[2017-07-01] MEDS: ipratropium/albuterol 3ml nebule NEB SCH ×4 (02:47→21:08)
[2017-07-01 04:13] LABS: BASOPHILS % (AUTO) 0.1 % (0-1); EOSINOPHILS # (AUTO) 0.7 X10'3 (0-0.9); EOSINOPHILS % (AUTO) 2.1 % (0-6); HEMATOCRIT 27.3 % (42.0-52.0); HEMOGLOBIN 9.3 g/dl (14.0-17.9); LYMPHOCYTES # (AUTO) 0.5 X10'3 (1.1-4.8); LYMPHOCYTES % (AUTO) 1.6 % (21-51); MEAN CORPUSCULAR HGB CONC 34.2 % (33.0-36.5); MEAN CORPUSCULAR VOLUME 84.8 FL (78-98); MEAN PLATELET VOLUME 7.2 FL (7.4-10.4); MONOCYTES # (AUTO) 1.5 X10'3 (0-0.9); MONOCYTES % (AUTO) 4.8 % (2-12); NEUTROPHILS # (AUTO) 28.8 X10'3 (1.8-7.7); NEUTROPHILS % (AUTO) 91.4 % (42-75); PLATELET COUNT 875 X10'3 (140-440); RED BLOOD COUNT 3.21 X10'6 (4.70-6.10); RED CELL DISTRIBUTION WIDTH 15.9 % (11.5-14.5)
[2017-07-01 04:21] LABS: WHITE BLOOD COUNT 31.5 X10'3 (4.5-11.0)
[2017-07-01 04:30] LABS: ALANINE AMINOTRANSFERASE 9 U/L (12-78); ALBUMIN 1.7 G/DL (3.4-5.0); ALBUMIN/GLOBULIN RATIO 0.3 (1.1-1.5); ALKALINE PHOSPHATASE 105 IU/L (46-116); ANION GAP 15 (8-16); ASPARTATE AMINO TRANSFERASE 16 U/L (10-37); BILIRUBIN,TOTAL 0.9 MG/DL (0.1-1.0); BLOOD UREA NITROGEN 91 MG/DL (7-18); BUN/CREATININE RATIO 19.3 (5.4-32.0); CHLORIDE 90 MMOL/L (99-107); CREATININE 4.72 MG/DL (0.60-1.10); GLUCOSE 149 MG/DL (70-104); MAGNESIUM 1.6 MG/DL (1.5-2.4); PHOSPHORUS 4.6 MG/DL (2.3-4.5); POTASSIUM 3.8 MMOL/L (3.5-5.1); SODIUM 124 MMOL/L (135-145); TOTAL CARBON DIOXIDE 18.8 MMOL/L (24-32); TOTAL PROTEIN 6.6 G/DL (6.4-8.2); VANCOMYCIN,RANDOM 24.5 UG/ML; eGFR 12 ML/MIN
[2017-07-01 04:47] LABS: ANISOCYTOSIS 1+; PLATELET ESTIMATE INCREASED; TOTAL CELLS COUNTED 100
[2017-07-01] MEDS: pantoprazole 40 MG vial IV SCH ×2 (07:23→20:50)
[2017-07-01] MEDS: fluconazole-Diflucan 200mg/NS 100 ML IV SCH (07:23)
[2017-07-01] MEDS: lactobacillus rhamnosus 10,000 MMU CELLS/CAPSULE PO SCH ×2 (07:23→20:49)
[2017-07-01] MEDS: meropenem inj 500 MG in normal saline 100ml IV soln 100 ML IV SCH (07:23)
[2017-07-01] MEDS: methylnaltrexone br 12mg/0.6ml inj***SubQ only SQ SCH (07:23)
[2017-07-01] MEDS: heparin, porcine 5000 units/ml vial SQ SCH ×2 (07:24→20:50)
[2017-07-01] MEDS: K, MAG and/or Phos replacement - Verify level? MC SCH (08:00)
[2017-07-01] MEDS: Dextrose 10%-water IV solution 1,000 ML IV SCH ×2 (08:10→17:12)
[2017-07-01] MEDS ORDERED: heparin 1,000 units/ml 10ml inj IV ONE (08:25)
[2017-07-01] MEDS ORDERED: epoetin 20,000 units/ml inj IV ONE (08:25)
[2017-07-01] MEDS ORDERED: albumin (human) 25% 100ml IV 100 ML IV PRN (08:25)
[2017-07-01] MEDS ORDERED: heparin 1,000unit/ml 10ml vial 10 ML IV ONE (08:25)
[2017-07-01] MEDS ORDERED: heparin 1,000 units/ml 10ml inj HE ONE ×2 (08:30)
[2017-07-01] MEDS ORDERED: amiodarone 150mg/dext, iso-os 100 ML IV ONE (11:05)
[2017-07-01] MEDS: amiodarone/D5 360MG/200ML BAG 200 ML IV SCH ×2 (12:13→14:42)
[2017-07-01] MEDS: FENTANYL-0.9 % NACL/PF 100 ML IV PRN (12:28)
[2017-07-01] MEDS: insulin regular, human 100 UNITS in normal saline 100ml IV soln 99 ML IV SCH ×2 (18:16)
[2017-07-01] MEDS ORDERED: fat emulsion IV 100 ML, MVI, adult No.4 with vit. K 5 ML, Trace element-5 inj. 0.5 ML i... IV SCH ×4 (20:00)
[2017-07-01] MEDS: insulin glargine (Lantus) pen - multi-dose SQ SCH (21:00)
[2017-07-02] VITALS (24 sets, daily range): BP systolic 72–155; BP diastolic 59–88
[2017-07-02] MEDS: mineral oil/petrolatum ophthal oint EACHEYE SCH ×4 (01:54→21:42)
[2017-07-02] MEDS: insulin regular, human vial - multi-dose SQ SCH ×4 (01:57→23:08)
[2017-07-02 03:06] LABS: ABG BASE EXCESS -3.6 mmol/L (-2.0-3.0); ABG HCO3 20.2 mmol/L (22.0-26.0); ABG OXYGEN SATURATION 95.1 % (95-98); ABG PCO2 (T) 31.5 mmHg (35.0-48.0); ABG PH (T) 7.424 (7.350-7.450); ABG PO2 (T) 77.4 mmHg (83-108); ALLEN'S TEST Positive; FCOHb 0.3 % (0.5-1.5); FMetHb 0.1 % (0.3-1.12); FO2Hb 94.7 % (94-100); PATIENT TEMPERATURE 36.8; PEEP 8 cm H2O; RESPIRATORY RATE 14 b/min; RESPIRATORY RATE (OBSERVED) 18 b/min; TIDAL VOLUME 650 mL; TOTAL HEMOGLOBIN 9.8 G/dl (14.0-18.0)
[2017-07-02] MEDS: ipratropium/albuterol 3ml nebule NEB SCH ×4 (03:07→21:21)
[2017-07-02 04:09] LABS: BASOPHILS % (AUTO) 0 % (0-1); EOSINOPHILS # (AUTO) 0.7 X10'3 (0-0.9); EOSINOPHILS % (AUTO) 2.8 % (0-6); HEMATOCRIT 25.9 % (42.0-52.0); HEMOGLOBIN 8.8 g/dl (14.0-17.9); LYMPHOCYTES # (AUTO) 0.4 X10'3 (1.1-4.8); LYMPHOCYTES % (AUTO) 1.4 % (21-51); MEAN CORPUSCULAR HGB CONC 33.8 % (33.0-36.5); MEAN CORPUSCULAR VOLUME 85.6 FL (78-98); MEAN PLATELET VOLUME 7.2 FL (7.4-10.4); MONOCYTES # (AUTO) 0.9 X10'3 (0-0.9); MONOCYTES % (AUTO) 3.5 % (2-12); NEUTROPHILS # (AUTO) 24.5 X10'3 (1.8-7.7); NEUTROPHILS % (AUTO) 92.3 % (42-75); PLATELET COUNT 827 X10'3 (140-440); RED BLOOD COUNT 3.03 X10'6 (4.70-6.10)
[2017-07-02 04:10] LABS: WHITE BLOOD COUNT 26.5 X10'3 (4.5-11.0)
[2017-07-02] MEDS: LIPASE/PROTEASE/AMYLASE 4,200 unit CAPSULE.DR PO SCH ×6 (04:10→16:33)
[2017-07-02 04:25] LABS: ALANINE AMINOTRANSFERASE 12 U/L (12-78); ALBUMIN 1.6 G/DL (3.4-5.0); ALBUMIN/GLOBULIN RATIO 0.3 (1.1-1.5); ALKALINE PHOSPHATASE 131 IU/L (46-116); ANION GAP 12 (8-16); ASPARTATE AMINO TRANSFERASE 20 U/L (10-37); BILIRUBIN,TOTAL 0.6 MG/DL (0.1-1.0); BLOOD UREA NITROGEN 58 MG/DL (7-18); BUN/CREATININE RATIO 17.1 (5.4-32.0); CALCIUM 7.9 MG/DL (8.5-10.1); CHLORIDE 93 MMOL/L (99-107); GLUCOSE 225 MG/DL (70-104); MAGNESIUM 1.6 MG/DL (1.5-2.4); PHOSPHORUS 2.9 MG/DL (2.3-4.5); POTASSIUM 3.2 MMOL/L (3.5-5.1); PREALBUMIN 12.6 MG/DL (19-36); SODIUM 127 MMOL/L (135-145); TOTAL CARBON DIOXIDE 22.3 MMOL/L (24-32); TOTAL PROTEIN 6.5 G/DL (6.4-8.2); VANCOMYCIN,RANDOM 18.9 UG/ML; eGFR 18 ML/MIN
[2017-07-02 04:46] LABS: BASOPHILS % (MANUAL) 1 % (0-1); EOSINOPHILS % (MANUAL) 4 % (0-6); LYMPHOCYTES % (MANUAL) 1 % (21-51); MONOCYTES % (MANUAL) 3 % (2-12); NEUTROPHILS % (MANUAL) 86 % (42-75); TOTAL CELLS COUNTED 100
[2017-07-02 04:47] LABS: ANISOCYTOSIS 1+; METAMYLEOCYTES% (MANUAL) 4 % (0-0); MYELOCYTES % (MANUAL) 1 % (0-0); PLATELET ESTIMATE INCREASED; SMUDGE CELLS FEW
[2017-07-02] MEDS: lactobacillus rhamnosus 10,000 MMU CELLS/CAPSULE PO SCH ×3 (07:19→21:42)
[2017-07-02] MEDS: temazepam 15mg capsule PO PRN (07:19)
[2017-07-02] MEDS: pantoprazole 40 MG vial IV SCH ×2 (07:20→21:42)
[2017-07-02] MEDS: fluconazole-Diflucan 200mg/NS 100 ML IV SCH (07:20)
[2017-07-02] MEDS: NORepinephrine 8mg/ 250ml NS 250 ML IV SCH (07:25)
[2017-07-02] MEDS: methylnaltrexone br 12mg/0.6ml inj***SubQ only SQ SCH (07:26)
[2017-07-02] MEDS: heparin, porcine 5000 units/ml vial SQ SCH ×2 (07:59→21:43)
[2017-07-02] MEDS: K, MAG and/or Phos replacement - Verify level? MC SCH (08:00)
[2017-07-02] MEDS: meropenem inj 500 MG in normal saline 100ml IV soln 100 ML IV SCH ×2 (09:03→16:13)
[2017-07-02] MEDS: FENTANYL-0.9 % NACL/PF 100 ML IV PRN (09:35)
[2017-07-02] MEDS: amiodarone/D5 360MG/200ML BAG 200 ML IV SCH (11:58)
[2017-07-02] MEDS ORDERED: metoclopramide 5 mg/ml inj IV ONE (16:15)
[2017-07-02] MEDS: insulin glargine (Lantus) pen - multi-dose SQ SCH (22:31)
[2017-07-02] MEDS: [UNRECOGNIZED DRUG - REMARK] IV SCH ×5 (23:10)
[2017-07-03] VITALS (24 sets, daily range): BP systolic 83–163; BP diastolic 56–82
[2017-07-03] MEDS: LIPASE/PROTEASE/AMYLASE 4,200 unit CAPSULE.DR PO SCH ×7 (00:17→21:05)
[2017-07-03] MEDS: amiodarone/D5 360MG/200ML BAG 200 ML IV SCH ×2 (00:18→16:51)
[2017-07-03] MEDS: mineral oil/petrolatum ophthal oint EACHEYE SCH ×4 (02:45→21:05)
[2017-07-03] MEDS ORDERED: insulin regular, human vial - multi-dose ONE (03:01)
[2017-07-03] MEDS: ipratropium/albuterol 3ml nebule NEB SCH ×4 (03:10→20:46)
[2017-07-03] MEDS: insulin regular, human vial - multi-dose SQ SCH ×4 (03:26→22:50)
[2017-07-03] MEDS: insulin regular, human 100 UNITS in normal saline 100ml IV soln 99 ML IV SCH ×2 (03:36)
[2017-07-03 04:09] LABS: BASOPHILS % (AUTO) 0 % (0-1); EOSINOPHILS # (AUTO) 0.8 X10'3 (0-0.9); EOSINOPHILS % (AUTO) 3.3 % (0-6); HEMATOCRIT 25.5 % (42.0-52.0); HEMOGLOBIN 8.6 g/dl (14.0-17.9); LYMPHOCYTES # (AUTO) 0.4 X10'3 (1.1-4.8); LYMPHOCYTES % (AUTO) 1.6 % (21-51); MEAN CORPUSCULAR HGB CONC 33.8 % (33.0-36.5); MEAN CORPUSCULAR VOLUME 85.7 FL (78-98); MEAN PLATELET VOLUME 7.4 FL (7.4-10.4); MONOCYTES # (AUTO) 1.1 X10'3 (0-0.9); MONOCYTES % (AUTO) 4.4 % (2-12); NEUTROPHILS # (AUTO) 23.1 X10'3 (1.8-7.7); NEUTROPHILS % (AUTO) 90.7 % (42-75); PLATELET COUNT 849 X10'3 (140-440); RED BLOOD COUNT 2.98 X10'6 (4.70-6.10)
[2017-07-03 04:15] LABS: WHITE BLOOD COUNT 25.4 X10'3 (4.5-11.0)
[2017-07-03 04:27] LABS: ALANINE AMINOTRANSFERASE 11 U/L (12-78); ALBUMIN 1.6 G/DL (3.4-5.0); ALBUMIN/GLOBULIN RATIO 0.3 (1.1-1.5); ALKALINE PHOSPHATASE 134 IU/L (46-116); ANION GAP 14 (8-16); ASPARTATE AMINO TRANSFERASE 13 U/L (10-37); BILIRUBIN,TOTAL 0.5 MG/DL (0.1-1.0); BLOOD UREA NITROGEN 73 MG/DL (7-18); CALCIUM 8.1 MG/DL (8.5-10.1); CHLORIDE 90 MMOL/L (99-107); CREATININE 3.84 MG/DL (0.60-1.10); GLUCOSE 304 MG/DL (70-104); MAGNESIUM 1.4 MG/DL (1.5-2.4); POTASSIUM 3.4 MMOL/L (3.5-5.1); SODIUM 123 MMOL/L (135-145); TOTAL CARBON DIOXIDE 18.8 MMOL/L (24-32); TOTAL PROTEIN 6.5 G/DL (6.4-8.2); VANCOMYCIN,RANDOM 16.7 UG/ML; eGFR 15 ML/MIN
[2017-07-03 04:44] LABS: ANISOCYTOSIS 1+; PLATELET ESTIMATE INCREASED; TOTAL CELLS COUNTED 100
[2017-07-03 04:48] LABS: LARGE PLATELETS MODERATE; POLYCHROMASIA 2+
[2017-07-03 04:49] LABS: TOXIC GRANULATION 3+; TOXIC VACUOLATION FEW
[2017-07-03] MEDS: lactobacillus rhamnosus 10,000 MMU CELLS/CAPSULE PO SCH ×3 (07:49→21:05)
[2017-07-03] MEDS: pantoprazole 40 MG vial IV SCH ×2 (07:50→21:05)
[2017-07-03] MEDS: heparin, porcine 5000 units/ml vial SQ SCH ×2 (07:51→21:06)
[2017-07-03] MEDS: [UNRECOGNIZED DRUG - REMARK] IV SCH ×5 (07:51)
[2017-07-03] MEDS: FENTANYL-0.9 % NACL/PF 100 ML IV PRN (07:51)
[2017-07-03] MEDS: fluconazole-Diflucan 200mg/NS 100 ML IV SCH (07:52)
[2017-07-03] MEDS: methylnaltrexone br 12mg/0.6ml inj***SubQ only SQ SCH (07:55)
[2017-07-03] MEDS: K, MAG and/or Phos replacement - Verify level? MC SCH (08:00)
[2017-07-03] MEDS ORDERED: heparin 1,000unit/ml 10ml vial 10 ML IV ONE (08:20)
[2017-07-03] MEDS ORDERED: heparin 1,000 units/ml 10ml inj IV ONE (08:20)
[2017-07-03] MEDS ORDERED: albumin (human) 25% 100ml IV 100 ML IV PRN (08:20)
[2017-07-03] MEDS ORDERED: epoetin 20,000 units/ml inj IV ONE (08:20)
[2017-07-03] MEDS ORDERED: heparin 1,000 units/ml 10ml inj HE ONE ×2 (08:25)
[2017-07-03] MEDS: Dextrose 10%-water IV solution 1,000 ML IV SCH (10:10)
[2017-07-03] MEDS ORDERED: iohexol 300 MG/1 ML 50ml polymer ONE (16:11)
[2017-07-03] MEDS: fat emulsion IV 100 ML, MVI, adult No.4 with vit. K 10 ML, Trace element-5 inj. 1 ML in... IV SCH ×4 (21:05)
[2017-07-03] MEDS: NORepinephrine 8mg/ 250ml NS 250 ML IV SCH (22:22)
[2017-07-03] MEDS: insulin glargine (Lantus) pen - multi-dose SQ SCH (22:47)
[2017-07-04] VITALS (24 sets, daily range): BP systolic 108–154; BP diastolic 53–77
[2017-07-04] MEDS: LIPASE/PROTEASE/AMYLASE 4,200 unit CAPSULE.DR PO SCH ×6 (00:07→20:13)
[2017-07-04] MEDS: FENTANYL-0.9 % NACL/PF 100 ML IV PRN ×2 (00:08→17:19)
[2017-07-04] MEDS: amiodarone/D5 360MG/200ML BAG 200 ML IV SCH ×2 (01:45→14:03)
[2017-07-04] MEDS: mineral oil/petrolatum ophthal oint EACHEYE SCH ×4 (02:00→20:00)
[2017-07-04] MEDS: ipratropium/albuterol 3ml nebule NEB SCH ×4 (03:14→21:16)
[2017-07-04 03:17] LABS: BASOPHILS % (AUTO) 0 % (0-1); EOSINOPHILS # (AUTO) 0.7 X10'3 (0-0.9); EOSINOPHILS % (AUTO) 2.5 % (0-6); HEMATOCRIT 27.3 % (42.0-52.0); HEMOGLOBIN 9.2 g/dl (14.0-17.9); LYMPHOCYTES # (AUTO) 0.5 X10'3 (1.1-4.8); MEAN CORPUSCULAR HGB CONC 33.9 % (33.0-36.5); MEAN CORPUSCULAR VOLUME 85.7 FL (78-98); MEAN PLATELET VOLUME 7.4 FL (7.4-10.4); MONOCYTES # (AUTO) 1.3 X10'3 (0-0.9); MONOCYTES % (AUTO) 4.8 % (2-12); NEUTROPHILS # (AUTO) 25.3 X10'3 (1.8-7.7); NEUTROPHILS % (AUTO) 90.7 % (42-75); PLATELET COUNT 901 X10'3 (140-440); RED BLOOD COUNT 3.18 X10'6 (4.70-6.10); RED CELL DISTRIBUTION WIDTH 16.4 % (11.5-14.5)
[2017-07-04 03:25] LABS: WHITE BLOOD COUNT 27.9 X10'3 (4.5-11.0)
[2017-07-04 03:34] LABS: ALANINE AMINOTRANSFERASE 8 U/L (12-78); ALBUMIN 1.7 G/DL (3.4-5.0); ALBUMIN/GLOBULIN RATIO 0.3 (1.1-1.5); ALKALINE PHOSPHATASE 151 IU/L (46-116); ANION GAP 12 (8-16); ASPARTATE AMINO TRANSFERASE 22 U/L (10-37); BILIRUBIN,TOTAL 0.5 MG/DL (0.1-1.0); BLOOD UREA NITROGEN 48 MG/DL (7-18); BUN/CREATININE RATIO 16.8 (5.4-32.0); CALCIUM 8.4 MG/DL (8.5-10.1); CHLORIDE 93 MMOL/L (99-107); CREATININE 2.86 MG/DL (0.60-1.10); GLUCOSE 74 MG/DL (70-104); MAGNESIUM 1.6 MG/DL (1.5-2.4); PHOSPHORUS 2.4 MG/DL (2.3-4.5); POTASSIUM 3.4 MMOL/L (3.5-5.1); SODIUM 128 MMOL/L (135-145); TOTAL CARBON DIOXIDE 22.8 MMOL/L (24-32); eGFR 22 ML/MIN
[2017-07-04] MEDS: K, MAG and/or Phos replacement - Verify level? MC SCH (08:00)
[2017-07-04 08:06] LABS: TOTAL CELLS COUNTED 100
[2017-07-04 08:07] LABS: ANISOCYTOSIS 1+; HYPOCHROMASIA 1+; PLATELET ESTIMATE INCREASED; TOXIC GRANULATION 3+
[2017-07-04 08:08] LABS: POLYCHROMASIA 1+
[2017-07-04] MEDS: pantoprazole 40 MG vial IV SCH ×2 (09:10→20:14)
[2017-07-04] MEDS: methylnaltrexone br 12mg/0.6ml inj***SubQ only SQ SCH (09:10)
[2017-07-04] MEDS: lactobacillus rhamnosus 10,000 MMU CELLS/CAPSULE PO SCH ×2 (09:10→20:13)
[2017-07-04] MEDS: heparin, porcine 5000 units/ml vial SQ SCH ×2 (09:50→20:14)
[2017-07-04] MEDS: fluconazole-Diflucan 200mg/NS 100 ML IV SCH (09:51)
[2017-07-04] MEDS: insulin regular, human vial - multi-dose SQ SCH ×3 (10:02→20:43)
[2017-07-04] MEDS: meropenem inj 500 MG in normal saline 100ml IV soln 100 ML IV SCH (10:26)
[2017-07-04] MEDS: Dextrose 10%-water IV solution 1,000 ML IV SCH (11:10)
[2017-07-04] MEDS: insulin regular, human 100 UNITS in normal saline 100ml IV soln 99 ML IV SCH ×2 (12:56)
[2017-07-04] MEDS: fat emulsion IV 100 ML, MVI, adult No.4 with vit. K 10 ML, Trace element-5 inj. 1 ML in... IV SCH ×4 (13:17)
[2017-07-04] MEDS: insulin glargine (Lantus) pen - multi-dose SQ SCH (20:42)
[2017-07-05] VITALS (23 sets, daily range): BP systolic 99–175; BP diastolic 55–87
[2017-07-05] MEDS: LIPASE/PROTEASE/AMYLASE 4,200 unit CAPSULE.DR PO SCH ×6 (00:46→19:57)
[2017-07-05] MEDS: mineral oil/petrolatum ophthal oint EACHEYE SCH ×4 (02:00→19:57)
[2017-07-05] MEDS: insulin regular, human vial - multi-dose SQ SCH ×4 (02:33→20:08)
[2017-07-05 02:53] LABS: BASOPHILS % (AUTO) 0 % (0-1); EOSINOPHILS # (AUTO) 0.4 X10'3 (0-0.9); EOSINOPHILS % (AUTO) 1.6 % (0-6); HEMATOCRIT 26.3 % (42.0-52.0); HEMOGLOBIN 8.9 g/dl (14.0-17.9); LYMPHOCYTES # (AUTO) 0.4 X10'3 (1.1-4.8); LYMPHOCYTES % (AUTO) 1.6 % (21-51); MEAN CORPUSCULAR HEMOGLOBIN 28.8 PG (27.0-31.0); MEAN CORPUSCULAR HGB CONC 33.7 % (33.0-36.5); MEAN CORPUSCULAR VOLUME 85.4 FL (78-98); MEAN PLATELET VOLUME 7.5 FL (7.4-10.4); MONOCYTES # (AUTO) 0.9 X10'3 (0-0.9); MONOCYTES % (AUTO) 3.9 % (2-12); NEUTROPHILS # (AUTO) 21.8 X10'3 (1.8-7.7); NEUTROPHILS % (AUTO) 92.9 % (42-75); PLATELET COUNT 839 X10'3 (140-440); RED BLOOD COUNT 3.08 X10'6 (4.70-6.10); RED CELL DISTRIBUTION WIDTH 16.3 % (11.5-14.5); WHITE BLOOD COUNT 23.5 X10'3 (4.5-11.0)
[2017-07-05] MEDS: ipratropium/albuterol 3ml nebule NEB SCH ×4 (03:09→21:05)
[2017-07-05 03:20] LABS: ALANINE AMINOTRANSFERASE 9 U/L (12-78); ALBUMIN 1.6 G/DL (3.4-5.0); ALBUMIN/GLOBULIN RATIO 0.3 (1.1-1.5); ALKALINE PHOSPHATASE 136 IU/L (46-116); ANION GAP 15 (8-16); ASPARTATE AMINO TRANSFERASE 11 U/L (10-37); BILIRUBIN,TOTAL 0.5 MG/DL (0.1-1.0); BLOOD UREA NITROGEN 65 MG/DL (7-18); BUN/CREATININE RATIO 20.8 (5.4-32.0); CALCIUM 8.8 MG/DL (8.5-10.1); CHLORIDE 89 MMOL/L (99-107); CREATININE 3.13 MG/DL (0.60-1.10); GLUCOSE 249 MG/DL (70-104); MAGNESIUM 1.8 MG/DL (1.5-2.4); PHOSPHORUS 4.5 MG/DL (2.3-4.5); POTASSIUM 4.3 MMOL/L (3.5-5.1); SODIUM 123 MMOL/L (135-145); TOTAL CARBON DIOXIDE 18.9 MMOL/L (24-32); TOTAL PROTEIN 6.7 G/DL (6.4-8.2); eGFR 19 ML/MIN
[2017-07-05] MEDS: amiodarone/D5 360MG/200ML BAG 200 ML IV SCH ×2 (04:07→14:07)
[2017-07-05] MEDS: FENTANYL-0.9 % NACL/PF 100 ML IV PRN ×2 (05:48→19:55)
[2017-07-05] MEDS: fat emulsion IV 100 ML, MVI, adult No.4 with vit. K 10 ML, Trace element-5 inj. 1 ML in... IV SCH ×4 (07:04)
[2017-07-05] MEDS: K, MAG and/or Phos replacement - Verify level? MC SCH (07:17)
[2017-07-05 07:19] LABS: PLATELET ESTIMATE INCREASED; TOTAL CELLS COUNTED 100
[2017-07-05 07:20] LABS: ANISOCYTOSIS 1+; POLYCHROMASIA 1+
[2017-07-05 07:21] LABS: HYPOCHROMASIA 1+; TOXIC GRANULATION 3+
[2017-07-05] MEDS: pantoprazole 40 MG vial IV SCH ×2 (07:37→19:57)
[2017-07-05] MEDS: meropenem inj 500 MG in normal saline 100ml IV soln 100 ML IV SCH (07:38)
[2017-07-05] MEDS: heparin, porcine 5000 units/ml vial SQ SCH ×2 (07:38→19:56)
[2017-07-05] MEDS: lactobacillus rhamnosus 10,000 MMU CELLS/CAPSULE PO SCH ×2 (07:39→19:57)
[2017-07-05] MEDS: fluconazole-Diflucan 200mg/NS 100 ML IV SCH (07:39)
[2017-07-05] MEDS: Dextrose 10%-water IV solution 1,000 ML IV SCH (12:10)
[2017-07-05] MEDS: insulin glargine (Lantus) pen - multi-dose SQ SCH (20:35)
[2017-07-05] MEDS: insulin regular, human 100 UNITS in normal saline 100ml IV soln 99 ML IV SCH ×2 (22:16)
[2017-07-06] VITALS (17 sets, daily range): BP systolic 91–146; BP diastolic 55–73
[2017-07-06] MEDS: fat emulsion IV 100 ML, MVI, adult No.4 with vit. K 10 ML, Trace element-5 inj. 1 ML in... IV SCH ×4 (00:22)
[2017-07-06] MEDS: LIPASE/PROTEASE/AMYLASE 4,200 unit CAPSULE.DR PO SCH ×4 (00:22→11:59)
[2017-07-06] MEDS: mineral oil/petrolatum ophthal oint EACHEYE SCH ×3 (02:00→13:27)
[2017-07-06] MEDS: amiodarone/D5 360MG/200ML BAG 200 ML IV SCH (03:00)
[2017-07-06] MEDS: insulin regular, human vial - multi-dose SQ SCH ×2 (03:11→07:52)
[2017-07-06] MEDS: ipratropium/albuterol 3ml nebule NEB SCH ×3 (03:21→15:27)
[2017-07-06 03:49] LABS: BASOPHILS % (AUTO) 0 % (0-1); EOSINOPHILS # (AUTO) 0.7 X10'3 (0-0.9); HEMATOCRIT 25.4 % (42.0-52.0); HEMOGLOBIN 8.5 g/dl (14.0-17.9); LYMPHOCYTES # (AUTO) 0.4 X10'3 (1.1-4.8); LYMPHOCYTES % (AUTO) 1.5 % (21-51); MEAN CORPUSCULAR HEMOGLOBIN 28.6 PG (27.0-31.0); MEAN CORPUSCULAR HGB CONC 33.5 % (33.0-36.5); MEAN CORPUSCULAR VOLUME 85.3 FL (78-98); MEAN PLATELET VOLUME 7.4 FL (7.4-10.4); MONOCYTES # (AUTO) 1.3 X10'3 (0-0.9); MONOCYTES % (AUTO) 5.7 % (2-12); NEUTROPHILS # (AUTO) 20.8 X10'3 (1.8-7.7); NEUTROPHILS % (AUTO) 89.8 % (42-75); PLATELET COUNT 743 X10'3 (140-440); RED BLOOD COUNT 2.98 X10'6 (4.70-6.10); RED CELL DISTRIBUTION WIDTH 16.6 % (11.5-14.5); WHITE BLOOD COUNT 23.1 X10'3 (4.5-11.0)
[2017-07-06 04:08] LABS: ALANINE AMINOTRANSFERASE 10 U/L (12-78); ALBUMIN 1.5 G/DL (3.4-5.0); ALBUMIN/GLOBULIN RATIO 0.3 (1.1-1.5); ALKALINE PHOSPHATASE 135 IU/L (46-116); ANION GAP 14 (8-16); ASPARTATE AMINO TRANSFERASE 9 U/L (10-37); BILIRUBIN,TOTAL 0.4 MG/DL (0.1-1.0); BLOOD UREA NITROGEN 85 MG/DL (7-18); BUN/CREATININE RATIO 24.6 (5.4-32.0); CALCIUM 8.6 MG/DL (8.5-10.1); CHLORIDE 88 MMOL/L (99-107); CREATININE 3.46 MG/DL (0.60-1.10); GLUCOSE 213 MG/DL (70-104); PHOSPHORUS 5.9 MG/DL (2.3-4.5); POTASSIUM 5.1 MMOL/L (3.5-5.1); PREALBUMIN 13.8 MG/DL (19-36); SODIUM 121 MMOL/L (135-145); TOTAL CARBON DIOXIDE 19.4 MMOL/L (24-32); TOTAL PROTEIN 6.4 G/DL (6.4-8.2); eGFR 17 ML/MIN
[2017-07-06] MEDS: diphenhydrAMINE 50 mg/ml inj IV PRN ×2 (04:36→11:57)
[2017-07-06] MEDS: FENTANYL-0.9 % NACL/PF 100 ML IV PRN (07:15)
[2017-07-06] MEDS: K, MAG and/or Phos replacement - Verify level? MC SCH (07:21)
[2017-07-06] MEDS: heparin, porcine 5000 units/ml vial SQ SCH (07:23)
[2017-07-06] MEDS: pantoprazole 40 MG vial IV SCH (07:24)
[2017-07-06] MEDS: meropenem inj 500 MG in normal saline 100ml IV soln 100 ML IV SCH (07:24)
[2017-07-06] MEDS: lactobacillus rhamnosus 10,000 MMU CELLS/CAPSULE PO SCH (07:24)
[2017-07-06] MEDS: fluconazole-Diflucan 200mg/NS 100 ML IV SCH (07:25)
[2017-07-06] MEDS ORDERED: heparin 1,000 units/ml 10ml inj HE ONE ×2 (08:00)
[2017-07-06] MEDS: methylnaltrexone br 12mg/0.6ml inj***SubQ only SQ SCH (08:00)
[2017-07-06] MEDS ORDERED: normal saline 1000ml 250 ML IV PRN (08:00)
[2017-07-06] MEDS ORDERED: heparin 1,000unit/ml 10ml vial 10 ML IV ONE (08:00)
[2017-07-06] MEDS ORDERED: epoetin 20,000 units/ml inj IV ONE (08:00)
[2017-07-06] MEDS ORDERED: NORepinephrine 8mg/ 250ml NS 250 ML IV PRN (10:35)
[2017-07-06] MEDS: NORepinephrine 8mg/ 250ml NS 250 ML IV SCH (10:52)
[2017-07-06 10:54] LABS: ANISOCYTOSIS 1+; PLATELET ESTIMATE INCREASED; POIKILOCYTOSIS 1+; TOTAL CELLS COUNTED 100
[2017-07-06 10:55] LABS: POLYCHROMASIA 1+
[2017-07-06 10:56] LABS: SPHEROCYTES FEW
[2017-07-06] MEDS ORDERED: methylPREDNISolone sod succ 125mg/2ml vial IV ONE (12:00)
[2017-07-06] MEDS: Dextrose 10%-water IV solution 1,000 ML IV SCH (12:05)
[2017-07-06] MEDS ORDERED: LIDOcaine 1%/PF (10mg/ml) 5ml vial ONE (13:49)
[2017-07-06] MEDS ORDERED: [UNRECOGNIZED DRUG - REMARK] IV SCH ×5 (17:00)
[2017-07-08 10:35] LABS: OCCULT BLOOD STOOL NEGATIVE (Neg)
== END 2017-07-06 19:46 | DRG 4 ==
LOC: EDSEX 11:48 → ER 11:48 → ED HOLD 14:16 → MED 3N 19:29 → ICU 2S 05-30 13:55 → CICU 2S 06-09 21:32 → PCU 3S 06-12 17:51 → ICU 2S 06-16 11:21
PROVIDERS: ADMIT Family Medicine; ATTEND Family Medicine
PROC: 5A1955Z Respiratory Ventilation, Greater than 96 Consecutive Hours (ICD-10-PCS; principal; 2017-05-30)
PROC: 0BH17EZ Insertion of Endotracheal Airway into Trachea, Via Natural or Artificial Opening (ICD-10-PCS; 2017-05-30)
PROC: 02HV33Z Insertion of Infusion Device into Superior Vena Cava, Percutaneous Approach (ICD-10-PCS; 2017-05-30)
PROC: B548ZZA Ultrasonography of Superior Vena Cava, Guidance (ICD-10-PCS; 2017-05-30)
PROC: 5A1D90Z Performance of Urinary Filtration, Continuous, Greater than 18 hours Per Day (ICD-10-PCS; 2017-06-01)
PROC: 06HM33Z Insertion of Infusion Device into Right Femoral Vein, Percutaneous Approach (ICD-10-PCS; 2017-06-01)
PROC: 5A1D90Z Performance of Urinary Filtration, Continuous, Greater than 18 hours Per Day (ICD-10-PCS; 2017-06-02)
PROC: 5A1D90Z Performance of Urinary Filtration, Continuous, Greater than 18 hours Per Day (ICD-10-PCS; 2017-06-04)
PROC: 5A1D90Z Performance of Urinary Filtration, Continuous, Greater than 18 hours Per Day (ICD-10-PCS; 2017-06-05)
PROC: 5A1D70Z Performance of Urinary Filtration, Intermittent, Less than 6 Hours Per Day (ICD-10-PCS; 2017-06-06)
PROC: 5A1D70Z Performance of Urinary Filtration, Intermittent, Less than 6 Hours Per Day (ICD-10-PCS; 2017-06-08)
PROC: 0JH63XZ Insertion of Tunneled Vascular Access Device into Chest Subcutaneous Tissue and Fascia, Percutaneous Approach (ICD-10-PCS; 2017-06-09)
PROC: 02HV33Z Insertion of Infusion Device into Superior Vena Cava, Percutaneous Approach (ICD-10-PCS; 2017-06-09)
PROC: B5181ZA Fluoroscopy of Superior Vena Cava using Low Osmolar Contrast, Guidance (ICD-10-PCS; 2017-06-09)
PROC: B548ZZA Ultrasonography of Superior Vena Cava, Guidance (ICD-10-PCS; 2017-06-09)
PROC: 5A1D70Z Performance of Urinary Filtration, Intermittent, Less than 6 Hours Per Day (ICD-10-PCS; 2017-06-10)
PROC: 5A1D70Z Performance of Urinary Filtration, Intermittent, Less than 6 Hours Per Day (ICD-10-PCS; 2017-06-12)
PROC: 5A1D70Z Performance of Urinary Filtration, Intermittent, Less than 6 Hours Per Day (ICD-10-PCS; 2017-06-15)
PROC: 5A1D70Z Performance of Urinary Filtration, Intermittent, Less than 6 Hours Per Day (ICD-10-PCS; 2017-06-17)
PROC: 02HV33Z Insertion of Infusion Device into Superior Vena Cava, Percutaneous Approach (ICD-10-PCS; 2017-06-17)
PROC: 5A1955Z Respiratory Ventilation, Greater than 96 Consecutive Hours (ICD-10-PCS; 2017-06-18)
PROC: 0BH17EZ Insertion of Endotracheal Airway into Trachea, Via Natural or Artificial Opening (ICD-10-PCS; 2017-06-18)
PROC: 0DHA7UZ Insertion of Feeding Device into Jejunum, Via Natural or Artificial Opening (ICD-10-PCS; 2017-06-18)
PROC: 30233N1 Transfusion of Nonautologous Red Blood Cells into Peripheral Vein, Percutaneous Approach (ICD-10-PCS; 2017-06-19)
PROC: 5A1D70Z Performance of Urinary Filtration, Intermittent, Less than 6 Hours Per Day (ICD-10-PCS; 2017-06-19)
PROC: 5A1D70Z Performance of Urinary Filtration, Intermittent, Less than 6 Hours Per Day (ICD-10-PCS; 2017-06-21)
PROC: 5A1D70Z Performance of Urinary Filtration, Intermittent, Less than 6 Hours Per Day (ICD-10-PCS; 2017-06-21)
PROC: 5A2204Z Restoration of Cardiac Rhythm, Single (ICD-10-PCS; 2017-06-21)
PROC: 5A1D70Z Performance of Urinary Filtration, Intermittent, Less than 6 Hours Per Day (ICD-10-PCS; 2017-06-22)
PROC: 0B110F4 Bypass Trachea to Cutaneous with Tracheostomy Device, Open Approach (ICD-10-PCS; 2017-06-24)
PROC: 5A1D70Z Performance of Urinary Filtration, Intermittent, Less than 6 Hours Per Day (ICD-10-PCS; 2017-06-24)
PROC: 5A1D70Z Performance of Urinary Filtration, Intermittent, Less than 6 Hours Per Day (ICD-10-PCS; 2017-06-26)
PROC: 0W9G3ZZ Drainage of Peritoneal Cavity, Percutaneous Approach (ICD-10-PCS; 2017-06-29)
PROC: 5A1D70Z Performance of Urinary Filtration, Intermittent, Less than 6 Hours Per Day (ICD-10-PCS; 2017-06-29)
PROC: 5A1D70Z Performance of Urinary Filtration, Intermittent, Less than 6 Hours Per Day (ICD-10-PCS; 2017-07-01)
PROC: 5A1D70Z Performance of Urinary Filtration, Intermittent, Less than 6 Hours Per Day (ICD-10-PCS; 2017-07-03)
PROC: 0D2DXUZ Change Feeding Device in Lower Intestinal Tract, External Approach (ICD-10-PCS; 2017-07-03)
PROC: 0W9G3ZZ Drainage of Peritoneal Cavity, Percutaneous Approach (ICD-10-PCS; 2017-07-06)
PROC: 5A1D70Z Performance of Urinary Filtration, Intermittent, Less than 6 Hours Per Day (ICD-10-PCS; 2017-07-06)
DX: K85.10 Biliary acute pancreatitis without necrosis or infection (principal); R57.9 Shock, unspecified; N17.0 Acute kidney failure with tubular necrosis; R65.11 Systemic inflammatory response syndrome (SIRS) of non-infectious origin with acute organ dysfunction; J81.1 Chronic pulmonary edema; K80.62 Calculus of gallbladder and bile duct with acute cholecystitis without obstruction; J96.00 Acute respiratory failure, unspecified whether with hypoxia or hypercapnia; E87.2 Acidosis; E87.1 Hypo-osmolality and hyponatremia; S37.30XA Unspecified injury of urethra, initial encounter; K92.2 Gastrointestinal hemorrhage, unspecified; Z68.41 Body mass index [BMI] 40.0-44.9, adult; J98.11 Atelectasis; E87.5 Hyperkalemia; E78.5 Hyperlipidemia, unspecified; R73.9 Hyperglycemia, unspecified; F32.9 Major depressive disorder, single episode, unspecified; I10 Essential (primary) hypertension; E66.9 Obesity, unspecified; I45.10 Unspecified right bundle-branch block; Z88.2 Allergy status to sulfonamides; Z85.820 Personal history of malignant melanoma of skin; X58.XXXA Exposure to other specified factors, initial encounter; Y93.89 Activity, other specified; Y92.89 Other specified places as the place of occurrence of the external cause; Y99.8 Other external cause status
CPT/HCPCS: 36415; 36558; 36569; 36600; 43752; 43761; 49083; 71045; 74018; 74176; 74181; 76000; 76700; 76775; 76937; 77001; 80048; 80053; 80061; 80069; 80202; 81001; 82042; 82140; 82150; 82272; 82330; 82550; 82570; 82803; 82810; 82948; 83036; 83605; 83615; 83690; 83735; 83986; 84100; 84134; 84145; 84156; 84157; 84300; 84439; 84443; 84478; 84484; 84560; 85018; 85025; 85610; 86885; 86900; 86901; 86920; 87040; 87070; 87075; 87088; 87102; 87207; 87324; 87340; 87449; 89051; 90935; 92616; 93005; 93306; 93308; 93970; 94002; 94003; 94640; 94760; 96365; 96375; 97110; 97161; 97530; 99285; A4310; A4315; A4333; A4357; A4623; A6209; A6212; A6213; A6257; A6258; A6449; A7000; A7015; A7521; A7526; C1750; C1751; C1758; C1769; C1894; C9113; G0257; J0171; J0282; J0461; J0692; J0885; J1200; J1450; J1644; J1815; J1940; J2001; J2185; J2212; J2250; J2270; J2405; J2543; J2704; J2765; J2930; J3010; J3370; J3475; J3480; J3490; J7030; J7060; J7120; J7131; P9016; P9047; Q9963; Q9967